=== PATIENT | female | born 1945 | race Caucasian/White ===

== ENCOUNTER 2018-06-15 18:45 | Inpatient (IN) | payer OTHER, SELFPAY ==
[2018-06-15] VITALS (12 sets, daily range): BP systolic 115–238; BP diastolic 35–101; PULSE 75–99; RESP 14–28; TEMP 37.2–37.3; O2SAT 82–100; BMI 47.4; BMI 45.1
--- NOTE | 2018-06-15 19:17 | EKG12_ITS ---
Test Reason : Blood Pressure : / mmHG Vent. Rate : 087 BPM Atrial Rate : 087 BPM P-R Int : 146 ms QRS Dur : 134 ms QT Int : 400 ms P-R-T Axes : 071 -79 044 degrees QTc Int : 481 ms Sinus rhythm with Premature atrial complexes Possible Left atrial enlargement Right bundle branch block Left anterior fascicular block Bifascicular block Abnormal ECG Confirmed by SWATI SMITH, SUSHANT ([id number]), market editor SANDRA BERG ([id number] on 06/17/2018 5:08:38 PM Referred By: Jalil Arredondo Confirmed By:SUSHNAT LONGORIA MD
--- NOTE | 2018-06-15 19:18 | CT_ITS ---
STUDY: CTA CHEST REASON FOR EXAM: Female, 73 years old. CHEST PAIN AND SOB SINCE Yesterday, pt IS POST-OP KNEE SURGERY ON 06-02-18,PT IV LEAKED SOME DURING INJECTION HX:DIABETES,HLD,HTN RADIATION DOSAGE (If Supplied By Facility): CTDIvol = ( 15.58 ) mGy, DLP = ( 703.05 ) mGycm TECHNIQUE: The examination was performed with the intravenous administration of 100ML ml of Isovue 370 contrast material. Post-processing of the angiographic images was performed, with multiplanar reformation and 3D reconstruction. Individualized dose optimization techniques were used for this CT. COMPARISON: None. FINDINGS: There are degenerative changes of the shoulders. There is no pneumothorax. Lower lobe atelectasis. Bilateral pleural effusions. There are calcifications of the coronary arteries. There is moderate cardiac enlargement. Valvular calcifications. Interlobular septal thickening. Normal mediastinum. Normal hilar regions. Normal pulmonary arteries. There is atherosclerotic calcification of the aortic arch with tortuosity and elongation of the aortic arch and descending thoracic aorta. There are multi-level degenerative changes of the thoracic spine. There is no demonstrated abnormality of the visualized upper abdomen. CT/CTA Chest W/WO Contrast IMPRESSION: There are bilateral pleural effusions, interlobular septal thickening, and cardiomegaly. This can suggest pulmonary edema. No demonstrated pulmonary embolism or arterial dissection. Electronically Signed: Ming Alexandra MD at 20:34 EST , Service support ,
[2018-06-15 19:26] LABS: Absolute Lymphocyte Count 1.66 X10^3/ul (0.83-4.51); Absolute Neutrophil Count 6.8 X10^3/uL (2.0-7.7); Basophil# 0.03 X10^3/uL; Basophil% 0.3 % (0-1); Eosinophil# 0.09 X10^3/uL; Hematocrit 30.2 % (37-47); Hemoglobin 9.4 g/dl (12.0-15.0); Lymphocyte # 1.66 X10^3/ul (4.0); Mean Corp Hgb Conc 31.1 g/gl (32-36); Mean Corpuscular Hgb 28.3 pg (27.0-32.0); Mean Platelet Vol. 9.1 fl (6.2-12.0); Monocyte# 0.62 X10^3/uL; Monocyte% 6.7 % (0-10); Neutrophil # 6.77 X10^3/uL (2.7-7.7); Neutrophil % 73.5 % (47-70); POSITIVE COUNT NO; POSITIVE DIFFERENTIAL NO; POSITIVE MORPHOLOGY NO; Platelet Count 455 K/mm3 (150-450); RBC Distribution Width CV 13.7 % (11.6-14.6); Red Blood Count 3.32 M/mm3 (4.2-5.4); White Blood Count 9.2 K/mm3 (4.4-11.0)
[2018-06-15 19:37] LABS: Anion Gap 8 (5-15); BUN 14 mg/dL (7-18); BUN/Creat Ratio 20.4 RATIO (10-20); Calcium,Total 8.7 mg/dL (8.5-10.1); Chloride 100 mmol/L (98-107); Creatinine, Serum 0.69 mg/dL (0.55-1.02); EST Glomerular Filtration Rate 89 mL/min (>60); Est Glom Filt Rate - Afr Amer 108 mL/min (>60); Estimated Creatinine Clearance 42.07 ml/min; Glucose 251 mg/dL (74-106); Potassium 3.9 mmol/L (3.5-5.1); Sodium Level 135 mmol/L (136-145)
[2018-06-15] MEDS: Ondansetron 4 MG/2 ML Vial IV (19:45)
[2018-06-15] MEDS: Morphine 4 MG/ML Syringe IV (19:45)
--- NOTE | 2018-06-15 20:33 | ED.RN ---
ASA 324 MG PO GIVEN BY EMS EN ROUTE TO [facility].
--- NOTE | 2018-06-15 21:12 | PCM.HP.STD ---
Problem List (1) Hypertensive emergency Status: Acute (2) Chest pain Status: Acute History of Present Illness Date of Admission: 06/15/18 Chief Complaint: CHEST PAIN The patient is a 73 year old F with a significant history of hypertension; diabetes mellitus; and a leaky valve who presented with chest pain that started the same day of her admission. Her chest pain is located at her left chest. Her chest pain is continuous with episodic increase in intensity. Her chest pain can go as high as 7 out of 10. The chest pain is described as a pressure and occasional sharpness. When she sits up her chest pain improves. She denies any aggravating factor to the chest pain. She denies any nausea. However she recounted one episode of vomiting. Also, she reports epigastric pain that has since disappeared. She was given 1 tablet of nitroglycerin by paramedics. She reported that the nitroglycerin did not help her. Also she was given 324 mg of aspirin by paramedics. Patient takes aspirin daily but on the morning of her admission she did not take her aspirin because of abdominal upset. She has aching pain in her upper back but she thinks that the pain is from lying in a recliner. She does not reports any radiating pain otherwise. Further, she also reports shortness of breath that started on the night before her admission. Her shortness of breath occurred at rest after waking up from sleep. She denies any strong family history of heart disease. She reports that her mother at age 84 had a CABG and repair of heart valve. She denies any tobacco or ethanol use. At emergency department her troponin was found in the indeterminate range and her blood pressure was elevated with a systolic between 190 to 210. She reported that on the day of admission her blood pressure at home was 163/88. Patient had a total left knee replacement on June 02, 2018. An ultrasound of her legs was done at emergency department but it was unremarkable for DVT. CTPA was done. The CTPA was unremarkable for PE but it showed bilateral pleural effusion. Past Medical History Medical History: Medical History (Last Updated 06/15/18 @ 22:25 by Jalil Arredondo MD) Diabetes E11.9 Hypertension I10 Allergies oxycodone Adverse Reaction (Verified 06/15/18 18:54) Nausea Home Medications: Ambulatory Orders Medication Instructions Recorded Aspirin 325 mg PO DAILY@0800 06/15/18 Glipizide 5 mg PO DAILY 06/15/18 Insulin Detemir [Levemir] 40 unit SQ QHS 06/15/18 Losartan Potassium 100 mg PO DAILY 06/15/18 Metoprolol(XL)Succ [Toprol Xl 50 mg PO DAILY 06/15/18 (Beta Iraj)] Surgical History: total knee arthroplasty - Bilateral; last one was done on left knee on June 02, 2018., - - Lower back surgery with disc fusion with plate and screw. Lives: Spouse/ Significant Other Smoking Status: Never smoker Alcohol: None - *Family History Paternal Family History: Family History (Last Updated 06/15/18 @ 22:28 by Jalil Arredondo MD) Sister Hypertension Father FH: CABG (coronary artery bypass surgery) Heart valve disease Review of Systems Constitutional: Denies: Chills, Fever, Weight Change HEENT: Denies: Head Aches, Sinus Congestion, Sinus Drainage Cardiovascular: Reports: Chest Pain. Denies: Palpitations Respiratory: Reports: Shortness of breath at rest. Denies: Cough, Sputum production Gastrointestinal: Reports: Abdominal Pain, Vomiting. Denies: Nausea Genitourinary: Denies: Dysuria Musculoskeletal: Reports: Back Pain. Denies: Joint Pain, Joint Tenderness Skin: Denies: Rash, Wounds Neurological: Denies: Numbness, Tingling, Focal weakness Psychiatric: Denies: Anxiety, Depression, Homicidal Ideations, Suicidal Ideations Hematologic/ Lymphatic: Denies: Easy Bruising, Easy Bleeding VTE Information - Inpt Only VTE Present on Admission: No VTE Mechan Device Prophylaxis: Knee High RAYMON Hose VTE Pharm Prophylaxis ordered?: Yes Patient Problems: Active and Suspected Problems (Last Updated 06/15/18 @ 22:25 by Jalil Arredondo MD) Hypertensive emergency (Acute) Chest pain (Acute) - Physical Exam General: Alert, Oriented x3, Cooperative HEENT: Atraumatic, PERRLA, EOMI, Normocephalic Neck: Supple, No JVD, Negative Carotid Bruits Lungs: Clear to auscultation, Normal air movement, - - Tender left chest Cardiovascular: Regular rate, No murmurs Abdomen: Bowel Sounds Present, Soft, Non Tender Extremities: No edema, Capillary Refill Less than 3 Seconds Skin: No rashes, No breakdown Musculoskeletal: No Tenderness to Palpation of Joints or Extremities Neurological: Neuro grossly intact Psych/Mental Status: Normal Affect, Appropriate Vital Signs Temp Pulse Resp BP Pulse Ox 99 F 79 16 175/80 H 97 06/15/18 18:50 06/15/18 21:00 06/15/18 21:00 06/15/18 21:00 06/15/18 21:00 Oxygen Flow Rate (L/min) 3 Oxygen Delivery Method Nasal Cannula Weight: 121.5 kg Body Mass Index (BMI) 47.4 Laboratory Tests Past 24 Hrs 06/15/18 06/15/18 19:00 19:00 WBC 9.2 RBC 3.32 L Hgb 9.4 L Hct 30.2 L MCV 91.0 MCH 28.3 MCHC 31.1 L RDW 13.7 RDW Differential 44.0 H Plt Count 455 H MPV 9.1 Immature Gran % (Auto) 0.500 Neut % (Auto) 73.5 H Lymph % (Auto) 18.0 L Thurston % (Auto) 6.7 Eos % (Auto) 1.0 Baso % (Auto) 0.3 Absolute Neuts (auto) 6.8 Absolute Lymphs (auto) 1.66 Total Counted Not Reportable Sodium 135 L Potassium 3.9 Chloride 100 Carbon Dioxide 27.0 Anion Gap 8 BUN 14 Creatinine 0.69 Estim Creat Clear Calc 42.07 Est GFR (MDRD) Af Amer 108 Est GFR (MDRD) Non-Af 89 BUN/Creatinine Ratio 20.4 H Glucose 251 H Calcium 8.7 Troponin I 0.067 H Assessment/Plan All Active Problems (Last Updated 06/15/18 @ 22:25 by Jalil Arredondo MD) Hypertensive emergency (Acute) Chest pain (Acute) The patient is a 73 year old F with a significant history of hypertension; diabetes mellitus; and a leaky valve who presented with chest pain and shortness of breath and found to have severely elevated blood pressure; radiographic evidence of bilateral pleural effusion; and troponin in the indeterminate range. Hypertensive emergency Her systolic blood pressure at emergency department was 190-210. Patient reports being compliant with her blood pressure medication and on the day of admission she took all her blood pressure medications. Because of chest pain; shortness of breath and bilateral effusion uniforming diagnosis is probably hypertensive emergency. Discussed with emergency department doctor to give patient labetalol 10 mg IV x1. Nitroglycerin paste placed on patient chest. Noted that her blood pressure had dropped to 115/101. We will trend her blood pressure and make further adjustment as necessary. We will continue patient on nitroglycerin paste. Her home losartan and metoprolol will be started in the AM. Labetalol as needed for systolic blood pressure more than 160 with intent to keep blood pressure below 140. Because of chest pain and intermediate troponin will consult cardiology. In the meantime we will do an echocardiogram to access her heart. Patient is not a candidate of a treadmill stress test because of a history of bilateral knee replacement Chest pain Admit to a monitored bed on PCU EKG independently reviewed confirms right bundle branch block. ASA 81 mg p.o. daily Nitroglycerin patch placed. Morphine as needed for pain We will check lipid panel. High intensity statin ordered Serial cardiac enzymes Stat EKG as needed for chest pain Cardiac consult. Bilateral pleural effusion Independent review of CT PA showed moderate-sized bilateral pleural effusion. If patient continues to have shortness of breath after blood pressure is well controlled consider Furosemide; or US for need of thoracentesis Echo ordered as above. Diabetes mellitus On admission her blood glucose was not within goal. Patient will be placed on n.p.o. until cardiology sees patient. Will cutdown her Lantus dose as patient will be n.p.o. Glipizide continued. We will add correction scale insulin. DVT prophylaxis Heparin subcutaneous ordered. She was on home RAYMON hose for DVT prophylaxis after knee surgery; continued.. Code Visit OBS E&M: 77225 Initial observation care L3
--- NOTE | 2018-06-15 21:22 | ED.VISSUMM ---
- ER Visit Summary Date of Service: 06/15/18 Chief Complaint: Chest pain History of Present Illness: The patient is a 73 F presenting with chest pain, shortness of breath. She states this started yesterday and worsened today around 1 PM. Pain has been intermittent. She states it is worsened with laying flat and with taking deep inspirations. She had her right knee replaced on June [address] Mccartney. She had an ultrasound of her right lower extremity on which was negative for DVT. She complains of vomiting x1 earlier today. She has had no fever. Her knee has been healing well. Denies other complaints. Physical Examination: Vitals are stable. Patient is afebrile. Alert no acute distress. HEENT exam is unremarkable. Neck is supple. Lungs are clear and equal bilaterally. Heart is regular rate and rhythm. Abdomen is soft nontender nondistended. Extremities are unremarkable. Right knee incision clean dry and intact. No pain with range of motion. Normal distal pulse. Skin is warm and dry. No focal neurologic deficit. Remainder of exam is unremarkable. Emergency Department Course and Treatment: Patient was given aspirin, morphine, Zofran. EKG shows sinus rhythm rate of 87 with right bundle branch block. CBC normal except for hemoglobin 9.4, platelet 455. Chemistries normal except glucose 251. Troponin indeterminate at 0.067. Due to concern for PE with recent surgery CTA chest was obtained and shows there are bilateral pleural effusions, interlobular septal thickening, and cardiomegaly. This can suggest pulmonary edema. No demonstrated pulmonary embolism or arterial dissection. On reevaluation, she is chest pain-free. Discussed with the hospitalist for admission. Disposition: Admission Impression: Chest pain, pulmonary edema This note was generated with Flipboard dictation software. It may contain incorrect words, spelling, and punctuation that were not noted in review of the chart prior to signing ED Disposition - Plan for ED Patient: Chief Complaint: Chest Pain Referrals: Maxi Coats MD [Primary Care Provider] -
[2018-06-15] MEDS: Nitroglycerin Oint 1 INCH PACKET TRANSDERM. (22:06)
--- NOTE | 2018-06-15 22:51 | EKG12_ITS ---
Test Reason : CP REPEAT Blood Pressure : / mmHG Vent. Rate : 075 BPM Atrial Rate : 075 BPM P-R Int : 150 ms QRS Dur : 136 ms QT Int : 432 ms P-R-T Axes : -09 138 013 degrees QTc Int : 482 ms Normal sinus rhythm Right bundle branch block Left posterior fascicular block Bifascicular block Abnormal ECG No previous ECGs available Confirmed by SWATI SMITH, SUSHANT ([id number]), commercial production editor SANDRA BERG ([id number]) on 06/17/2018 5:38:58 PM Referred By: Jalil Arredondo Confirmed By:SUSHANT LONGORIA MD
[2018-06-15 23:16] LABS: Bedside Glucose 217 mg/dL (70-110)
[2018-06-15] MEDS: Insulin Lispro 100 UNIT/ML INSULN.PEN SQ (23:21)
[2018-06-15] MEDS: Atorvastatin Calcium 80 MG Tablet PO (23:23)
[2018-06-16] VITALS (25 sets, daily range): BP systolic 130–179; BP diastolic 38–72; PULSE 69–81; RESP 16–25; TEMP 36.8–37.2; O2SAT 95–100
[2018-06-16] MEDS: Morphine 2 MG/ML Syringe IV (02:15)
[2018-06-16] MEDS: 0.9% NaCl Peripheral Flush Adult/Peds IV ×3 (02:19→12:13)
[2018-06-16 02:27] LABS: International Normalized Ratio 1.1; Prothrombin Time (Protime)PT. 13.9 SECONDS (11.7-14.9)
[2018-06-16 02:36] LABS: Anion Gap 8 (5-15); BUN 13 mg/dL (7-18); BUN/Creat Ratio 17.8 RATIO (10-20); Calcium,Total 8.5 mg/dL (8.5-10.1); Chloride 101 mmol/L (98-107); Cholesterol 141 mg/dL (200); Creatinine, Serum 0.73 mg/dL (0.55-1.02); EST Glomerular Filtration Rate 83 mL/min (>60); Est Glom Filt Rate - Afr Amer 101 mL/min (>60); Estimated Creatinine Clearance 42.07 ml/min; Glucose 193 mg/dL (74-106); High Density Lipoprotein 42 mg/dL; Potassium 3.9 mmol/L (3.5-5.1); Sodium Level 137 mmol/L (136-145); Triglycerides 74 mg/dL; Very Low Density Lipoprotein 15 mg/dL (5-40)
[2018-06-16] MEDS: Insulin Lispro 100 UNIT/ML INSULN.PEN SQ ×2 (06:10→16:46)
[2018-06-16] MEDS: Nitroglycerin Oint 1 INCH PACKET TRANSDERM. (06:11)
[2018-06-16 06:26] LABS: Bedside Glucose 190 mg/dL (70-110)
--- NOTE | 2018-06-16 08:41 | PCM.PN.HOSP ---
Patient Problems: Active and Suspected Problems (Last Updated 06/15/18 @ 22:25 by Jalil Arredondo MD) Hypertensive emergency (Acute) Chest pain (Acute) Subjective: Patient shortness of breath is better. She has been feeling short of breath on mild exertion even walking within the home for last 2-3 weeks which got exacerbated in the last 2-3 days, along with retrosternal chest pressure bilateral pleural effusion with indeterminant range troponin. Patient is not sure about which a leaky valve but denies history of congestive heart failure. Patient has been compliant with medications. Vitals/I&O's: Vital Signs Temp Pulse Resp BP Pulse Ox 98.4 F 75 16 130/44 H 99 06/16/18 05:55 06/16/18 07:30 06/16/18 05:55 06/16/18 06:11 06/16/18 05:55 Oxygen Flow Rate (L/min) 2 Oxygen Delivery Method Nasal Cannula Weight: 254 lb 13.67 oz Body Mass Index (BMI) 45.1 Intake and Output for Last 24 Hours 06/14/18 06/15/18 06/16/18 23:59 23:59 23:59 Intake Total 240 / 240 60 / 60 Output Total 550 / 550 Balance 240 / 240 -490 / -490 General: Alert, Oriented x3, Cooperative HEENT: Atraumatic, PERRLA, EOMI, Normocephalic Neck: Supple, No JVD, Negative Carotid Bruits Lungs: Diminished - Air entry diminished in posterior half of both lungs., Rales, Short of Breath Cardiovascular: Regular rate, Regular Rhythm, Normal S1, Normal S2, Murmur - Systolic murmur present over left lower sternal border Abdomen: Bowel Sounds Present, Soft, Non Tender, Non-Distended Extremities: No edema, Capillary Refill Less than 3 Seconds Skin: No rashes, No breakdown Musculoskeletal: No Tenderness to Palpation of Joints or Extremities, Arthritic Changes, - - Bilateral TKR. Most recent right TKR about 2 weeks ago Lymphatic: No Cervical, Supraclavicular, or Inguinal Adenopathy Neurological: Cranial nerves II-XII grossly intact, Deep Tendon Reflexes 2+/4 and Symmetrical, Neuro grossly intact Psych/Mental Status: Normal Affect, Appropriate Laboratory Results 06/15/18 19:00: WBC 9.2, RBC 3.32 L, Hgb 9.4 L, Hct 30.2 L, MCV 91.0, MCH 28.3, MCHC 31.1 L, RDW 13.7, RDW Differential 44.0 H, Plt Count 455 H, MPV 9.1, Immature Gran % (Auto) 0.500, Neut % (Auto) 73.5 H, Lymph % (Auto) 18.0 L, Tama % (Auto) 6.7, Eos % (Auto) 1.0, Baso % (Auto) 0.3, Absolute Neuts (auto) 6.8, Absolute Lymphs (auto) 1.66, Total Counted Not Reportable 06/15/18 19:00: Sodium 135 L, Potassium 3.9, Chloride 100, Carbon Dioxide 27.0, Anion Gap 8, BUN 14, Creatinine 0.69, Estim Creat Clear Calc 42.07, Est GFR (MDRD) Af Amer 108, Est GFR (MDRD) Non-Af 89, BUN/Creatinine Ratio 20.4 H, Glucose 251 H, Calcium 8.7, Troponin I 0.067 H 06/15/18 23:00: Troponin I 0.083 H 06/15/18 23:10: POC Glucose 217 H 06/16/18 02:10: Sodium 137, Potassium 3.9, Chloride 101, Carbon Dioxide 28.0, Anion Gap 8, BUN 13, Creatinine 0.73, Estim Creat Clear Calc 42.07, Est GFR (MDRD) Af Amer 101, Est GFR (MDRD) Non-Af 83, BUN/Creatinine Ratio 17.8, Glucose 193 H, Calcium 8.5, Triglycerides 74, Cholesterol 141, LDL Cholesterol 84, VLDL Cholesterol 15, HDL Cholesterol 42 06/16/18 02:10: PT 13.9, INR 1.1 06/16/18 02:10: Troponin I 0.077 H 06/16/18 06:09: POC Glucose 190 H Current Medications Acetaminophen (Tylenol) 650 mg PO Q6H PRN PRN PRN Reason: Mild Pain (1-3)/Temp > 100.7 F Aspirin (Ecotrin) 81 mg PO DAILY@0800 [facility] Atorvastatin Calcium (Lipitor) 80 mg PO QHS [facility] Last Admin: 06/15/18 23:23 Dose: 80 mg Dextrose (D50w Syringe) 0 gm IV X1 PRN; Protocol PRN Reason: Hypoglycemia Glipizide (Glucotrol) 5 mg PO DAILYCM [facility] Glucagon () 1 mg IM .X1 PRN PRN Reason: Hypoglycemia Insulin Glargine (Lantus (Bkc)) 25 units SC QHS [facility] Last Admin: 06/15/18 23:22 Dose: 25 units Insulin Human Lispro (Humalog Kwikpen (Bk)) 0 unit SQ Q6 [facility]; Protocol Last Admin: 06/16/18 06:10 Dose: 2 units Labetalol HCl (Trandate) 10 mg IV Q4H PRN PRN PRN Reason: SBP > 160 Losartan Potassium (Cozaar) 100 mg PO DAILY [facility] Magnesium Hydroxide (Milk Of Magnesia) 30 ml PO DAILY PRN PRN Reason: Constipation Metoprolol Succinate (Toprol Xl (Beta Iraj)) 50 mg PO DAILY [facility] Morphine Sulfate () 1 - 2 mg IV Q4H PRN PRN PRN Reason: MOD-SEVERE PAIN (4-1010) Last Admin: 06/16/18 02:15 Dose: 2 mg Nitroglycerin (Nitrobid) 1 inch TRANSDERM. Q6 [facility] Last Admin: 06/16/18 06:11 Dose: 1 inch Nutritional Formula (Lactose Free) (Glucerna Shake) 120 ml PO 4X/DAY [facility] Ondansetron HCl (Zofran) 4 mg IV Q8H PRN PRN PRN Reason: NAUSEA Sodium Chloride () 5 - 15 ml IV UD PRN PRN Reason: SALINE FLUSH Last Admin: 06/16/18 06:15 Dose: 10 ml Zolpidem Tartrate (Ambien (Generic)) 5 mg PO QHS PRN PRN PRN Reason: INSOMNIA Medical Necessity - Tobacco Use Smoking Status: Never smoker Assessment/Plan All Active Problems (Last Updated 06/15/18 @ 22:25 by Jalil Arredondo MD) Hypertensive emergency (Acute) Chest pain (Acute) The patient is a 73 year old F with a significant history of hypertension; diabetes mellitus; and a leaky valve who presented with progressive worsening of shortness of breath for 2-3 weeks got the worst last 2-3 hours along with chest pain and found to have severely elevated blood pressure; radiographic evidence of bilateral pleural effusion; and troponin in the indeterminate range, consistent with hypertensive emergency and was admitted in the ICU. 1 hypertensive emergency: Systolic blood pressure was 190-210 in the ED currently blood pressure systolic is in the 150s. Heart rate 70-80/min. Blood pressure dropped to 150s/101 on 1 dose of labetalol 10 mg IV given in ED currently on oral medications losartan, Nitropaste and labetalol 10 mg IV as needed. EKG shows normal sinus rhythm with right bundle branch block, left posterior fascicular block at 75 bpm. No previous EKG in our system to compare with. [facility] has been consulted. 2D echo is ordered. Further plan after seen by guide excursion and echo report 2. Bilateral pleural effusion most probably secondary to CHF/hypertensive emergency: CT angiogram in the ER shows bilateral pleural effusions with interlobular septal thickening suggesting pulmonary edema. No PE/arterial dissection found. On Lasix as needed if the patient gets very short of breath but currently shortness of breath is better. 3. Atypical chest pain with intermittent troponin probably from hypertensive emergency and heart failure: [facility] evaluation. 4. Diabetes mellitus type 2: On Lantus and sliding scale Humalog insulin 5. DVT prophylaxis on heparin 500o subcutaneous twice daily Active Medications Acetaminophen (Tylenol) 650 mg PO Q6H PRN PRN PRN Reason: Mild Pain (1-3)/Temp > 100.7 F Aspirin (Ecotrin) 81 mg PO DAILY@0800 [facility] Atorvastatin Calcium (Lipitor) 80 mg PO QHS [facility] Last Admin: 06/15/18 23:23 Dose: 80 mg Dextrose (D50w Syringe) 0 gm IV X1 PRN; Protocol PRN Reason: Hypoglycemia [facility] Glucagon () 1 mg IM .X1 PRN PRN Reason: Hypoglycemia Insulin Glargine (Lantus (Bkc)) 25 units SC QHS [facility] Last Admin: 06/15/18 23:22 Dose: 25 units Insulin Human Lispro (Humalog Kwikpen (Bkc)) 0 unit SQ Q6 [facility]; Protocol Last Admin: 06/16/18 06:10 Dose: 2 units Labetalol HCl (Trandate) 10 mg IV Q4H PRN PRN PRN Reason: SBP > 160 Losartan Potassium (Cozaar) 100 mg PO DAILY [facility] Magnesium Hydroxide (Milk Of Magnesia) 30 ml PO DAILY PRN PRN Reason: Constipation Metoprolol Succinate (Toprol Xl (Beta Iraj)) 50 mg PO DAILY [facility] Morphine Sulfate () 1 - 2 mg IV Q4H PRN PRN PRN Reason: MOD-SEVERE PAIN (4-03/12) Last Admin: 06/16/18 02:15 Dose: 2 mg Nitroglycerin (Nitrobid) 1 inch TRANSDERM. Q6 [facility] Last Admin: 06/16/18 06:11 Dose: 1 inch Nutritional Formula (Lactose Free) (Glucerna Shake) 120 ml PO 4X/DAY [facility] Ondansetron HCl (Zofran) 4 mg IV Q8H PRN PRN PRN Reason: NAUSEA Sodium Chloride () 5 - 15 ml IV UD PRN PRN Reason: SALINE FLUSH Last Admin: 06/16/18 06:15 Dose: 10 ml Zolpidem Tartrate (Ambien (Generic)) 5 mg PO QHS PRN PRN PRN Reason: INSOMNIA Laboratory Results 06/15/18 19:00: WBC 9.2, RBC 3.32 L, Hgb 9.4 L, Hct 30.2 L, MCV 91.0, MCH 28.3, MCHC 31.1 L, RDW 13.7, RDW Differential 44.0 H, Plt Count 455 H, MPV 9.1, Immature Gran % (Auto) 0.500, Neut % (Auto) 73.5 H, Lymph % (Auto) 18.0 L, Tama % (Auto) 6.7, Eos % (Auto) 1.0, Baso % (Auto) 0.3, Absolute Neuts (auto) 6.8, Absolute Lymphs (auto) 1.66, Total Counted Not Reportable 06/15/18 19:00: Sodium 135 L, Potassium 3.9, Chloride 100, Carbon Dioxide 27.0, Anion Gap 8, BUN 14, Creatinine 0.69, Estim Creat Clear Calc 42.07, Est GFR (MDRD) Af Amer 108, Est GFR (MDRD) Non-Af 89, BUN/Creatinine Ratio 20.4 H, Glucose 251 H, Calcium 8.7, Troponin I 0.067 H 06/15/18 23:00: Troponin I 0.083 H 06/15/18 23:10: POC Glucose 217 H 06/16/18 02:10: Sodium 137, Potassium 3.9, Chloride 101, Carbon Dioxide 28.0, Anion Gap 8, BUN 13, Creatinine 0.73, Estim Creat Clear Calc 42.07, Est GFR (MDRD) Af Amer 101, Est GFR (MDRD) Non-Af 83, BUN/Creatinine Ratio 17.8, Glucose 193 H, Calcium 8.5, Triglycerides 74, Cholesterol 141, LDL Cholesterol 84, VLDL Cholesterol 15, HDL Cholesterol 42 06/16/18 02:10: PT 13.9, INR 1.1 06/16/18 02:10: Troponin I 0.077 H 06/16/18 06:09: POC Glucose 190 H Code Visit Inpatient E&M: 41564 Subs Hosp L3
--- NOTE | 2018-06-16 08:46 | PN_ITS ---
Patient Problems: Active and Suspected Problems (Last Updated 06/15/18 @ 22:25 by Jalil Arredondo MD) Hypertensive emergency (Acute) Chest pain (Acute) Subjective: Patient shortness of breath is better. She has been feeling short of breath on mild exertion even walking within the home for last 2-3 weeks which got exacerbated in the last 2-3 days, along with retrosternal chest pressure bilateral pleural effusion with indeterminant range troponin. Patient is not sure about which a leaky valve but denies history of congestive heart failure. Patient has been compliant with medications. Vitals/I&O's: Vital Signs Temp Pulse Resp BP Pulse Ox 98.4 F 75 16 130/44 H 99 06/16/18 05:55 06/16/18 07:30 06/16/18 05:55 06/16/18 06:11 06/16/18 05:55 Oxygen Flow Rate (L/min) 2 Oxygen Delivery Method Nasal Cannula Weight: 254 lb 13.67 oz Body Mass Index (BMI) 45.1 Intake and Output for Last 24 Hours 06/14/18 06/15/18 06/16/18 23:59 23:59 23:59 Intake Total 240 / 240 60 / 60 Output Total 550 / 550 Balance 240 / 240 -490 / -490 General: Alert, Oriented x3, Cooperative HEENT: Atraumatic, PERRLA, EOMI, Normocephalic Neck: Supple, No JVD, Negative Carotid Bruits Lungs: Diminished - Air entry diminished in posterior half of both lungs., Rales, Short of Breath Cardiovascular: Regular rate, Regular Rhythm, Normal S1, Normal S2, Murmur - Systolic murmur present over left lower sternal border Abdomen: Bowel Sounds Present, Soft, Non Tender, Non-Distended Extremities: No edema, Capillary Refill Less than 3 Seconds Skin: No rashes, No breakdown Musculoskeletal: No Tenderness to Palpation of Joints or Extremities, Arthritic Changes, - - Bilateral TKR. Most recent right TKR about 2 weeks ago Lymphatic: No Cervical, Supraclavicular, or Inguinal Adenopathy Neurological: Cranial nerves II-XII grossly intact, Deep Tendon Reflexes 2+/4 and Symmetrical, Neuro grossly intact Psych/Mental Status: Normal Affect, Appropriate Laboratory Results 06/15/18 19:00: WBC 9.2, RBC 3.32 L, Hgb 9.4 L, Hct 30.2 L, MCV 91.0, MCH 28.3, MCHC 31.1 L, RDW 13.7, RDW Differential 44.0 H, Plt Count 455 H, MPV 9.1, Immature Gran % (Auto) 0.500, Neut % (Auto) 73.5 H, Lymph % (Auto) 18.0 L, [place] % (Auto) 6.7, Eos % (Auto) 1.0, Baso % (Auto) 0.3, Absolute Neuts (auto) 6.8, Absolute Lymphs (auto) 1.66, Total Counted Not Reportable 06/15/18 19:00: Sodium 135 L, Potassium 3.9, Chloride 100, Carbon Dioxide 27.0, Anion Gap 8, BUN 14, Creatinine 0.69, Estim Creat Clear Calc 42.07, Est GFR (MDRD) Af Amer 108, Est GFR (MDRD) Non-Af 89, BUN/Creatinine Ratio 20.4 H, Glucose 251 H, Calcium 8.7, Troponin I 0.067 H 06/15/18 23:00: Troponin I 0.083 H 06/15/18 23:10: POC Glucose 217 H 06/16/18 02:10: Sodium 137, Potassium 3.9, Chloride 101, Carbon Dioxide 28.0, Anion Gap 8, BUN 13, Creatinine 0.73, Estim Creat Clear Calc 42.07, Est GFR (MDRD) Af Amer 101, Est GFR (MDRD) Non-Af 83, BUN/Creatinine Ratio 17.8, Glucose 193 H, Calcium 8.5, Triglycerides 74, Cholesterol 141, LDL Cholesterol 84, VLDL Cholesterol 15, HDL Cholesterol 42 06/16/18 02:10: PT 13.9, INR 1.1 06/16/18 02:10: Troponin I 0.077 H 06/16/18 06:09: POC Glucose 190 H Current Medications Acetaminophen (Tylenol) 650 mg PO Q6H PRN PRN PRN Reason: Mild Pain (1-3)/Temp > 100.7 F Aspirin (Ecotrin) 81 mg PO DAILY@0800 [facility] Atorvastatin Calcium (Lipitor) 80 mg PO QHS [facility] Last Admin: 06/15/18 23:23 Dose: 80 mg Dextrose (D50w Syringe) 0 gm IV X1 PRN; Protocol PRN Reason: Hypoglycemia Glipizide (Glucotrol) 5 mg PO DAILYCM [facility] Glucagon () 1 mg IM .X1 PRN PRN Reason: Hypoglycemia Insulin Glargine (Lantus (Bkc)) 25 units SC QHS [facility] Last Admin: 06/15/18 23:22 Dose: 25 units Insulin Human Lispro (Humalog Kwikpen (Bk)) 0 unit SQ Q6 [facility]; Protocol Last Admin: 06/16/18 06:10 Dose: 2 units Labetalol HCl (Trandate) 10 mg IV Q4H PRN PRN PRN Reason: SBP > 160 Losartan Potassium (Cozaar) 100 mg PO DAILY [facility] Magnesium Hydroxide (Milk Of Magnesia) 30 ml PO DAILY PRN PRN Reason: Constipation Metoprolol Succinate (Toprol Xl (Beta Iraj)) 50 mg PO DAILY [facility] Morphine Sulfate () 1 - 2 mg IV Q4H PRN PRN PRN Reason: MOD-SEVERE PAIN (4-1010) Last Admin: 06/16/18 02:15 Dose: 2 mg Nitroglycerin (Nitrobid) 1 inch TRANSDERM. Q6 [facility] Last Admin: 06/16/18 06:11 Dose: 1 inch Nutritional Formula (Lactose Free) (Glucerna Shake) 120 ml PO 4X/DAY [facility] Ondansetron HCl (Zofran) 4 mg IV Q8H PRN PRN PRN Reason: NAUSEA Sodium Chloride () 5 - 15 ml IV UD PRN PRN Reason: SALINE FLUSH Last Admin: 06/16/18 06:15 Dose: 10 ml Zolpidem Tartrate (Ambien (Generic)) 5 mg PO QHS PRN PRN PRN Reason: INSOMNIA Medical Necessity - Tobacco Use Smoking Status: Never smoker Assessment/Plan All Active Problems (Last Updated 06/15/18 @ 22:25 by Jalil Arredondo MD) Hypertensive emergency (Acute) Chest pain (Acute) The patient is a 73 year old F with a significant history of hypertension; diabetes mellitus; and a leaky valve who presented with progressive worsening of shortness of breath for 2-3 weeks got the worst last 2-3 hours along with chest pain and found to have severely elevated blood pressure; radiographic evidence of bilateral pleural effusion; and troponin in the indeterminate range, consistent with hypertensive emergency and was admitted in the ICU. 1 hypertensive emergency: Systolic blood pressure was 190-210 in the ED currently blood pressure systolic is in the 150s. Heart rate 70-80/min. Blood pressure dropped to 150s/101 on 1 dose of labetalol 10 mg IV given in ED currently on oral medications losartan, Nitropaste and labetalol 10 mg IV as needed. EKG shows normal sinus rhythm with right bundle branch block, left posterior fascicular block at 75 bpm. No previous EKG in our system to compare with. Gym Attendant has been consulted. 2D echo is ordered. Further plan after seen by research dietitian and echo report 2. Bilateral pleural effusion most probably secondary to CHF/hypertensive emergency: CT angiogram in the ER shows bilateral pleural effusions with interlobular septal thickening suggesting pulmonary edema. No PE/arterial dissection found. On Lasix as needed if the patient gets very short of breath but currently shortness of breath is better. 3. Atypical chest pain with intermittent troponin probably from hypertensive emergency and heart failure: Gym Attendant evaluation. 4. Diabetes mellitus type 2: On Lantus and sliding scale Humalog insulin 5. DVT prophylaxis on heparin 500o subcutaneous twice daily Active Medications Acetaminophen (Tylenol) 650 mg PO Q6H PRN PRN PRN Reason: Mild Pain (1-3)/Temp > 100.7 F Aspirin (Ecotrin) 81 mg PO DAILY@0800 [facility] Atorvastatin Calcium (Lipitor) 80 mg PO QHS [facility] Last Admin: 06/15/18 23:23 Dose: 80 mg Dextrose (D50w Syringe) 0 gm IV X1 PRN; Protocol PRN Reason: Hypoglycemia [facility] () 1 mg IM .X1 PRN PRN Reason: Hypoglycemia Insulin Glargine (Lantus (Bkc)) 25 units SC QHS [facility] Last Admin: 06/15/18 23:22 Dose: 25 units Insulin Human Lispro (Humalog Kwikpen (Bkc)) 0 unit SQ Q6 [facility]; Protocol Last Admin: 06/16/18 06:10 Dose: 2 units Labetalol HCl (Trandate) 10 mg IV Q4H PRN PRN PRN Reason: SBP > 160 Losartan Potassium (Cozaar) 100 mg PO DAILY [facility] Magnesium Hydroxide (Milk Of Magnesia) 30 ml PO DAILY PRN PRN Reason: Constipation Metoprolol Succinate (Toprol Xl (Beta Iraj)) 50 mg PO DAILY [facility] Morphine Sulfate () 1 - 2 mg IV Q4H PRN PRN PRN Reason: MOD-SEVERE PAIN (4-03/12) Last Admin: 06/16/18 02:15 Dose: 2 mg Nitroglycerin (Nitrobid) 1 inch TRANSDERM. Q6 [facility] Last Admin: 06/16/18 06:11 Dose: 1 inch Nutritional Formula (Lactose Free) (Glucerna Shake) 120 ml PO 4X/DAY [facility] Ondansetron HCl (Zofran) 4 mg IV Q8H PRN PRN PRN Reason: NAUSEA Sodium Chloride () 5 - 15 ml IV UD PRN PRN Reason: SALINE FLUSH Last Admin: 06/16/18 06:15 Dose: 10 ml Zolpidem Tartrate (Ambien (Generic)) 5 mg PO QHS PRN PRN PRN Reason: INSOMNIA Laboratory Results 06/15/18 19:00: WBC 9.2, RBC 3.32 L, Hgb 9.4 L, Hct 30.2 L, MCV 91.0, MCH 28.3, MCHC 31.1 L, RDW 13.7, RDW Differential 44.0 H, Plt Count 455 H, MPV 9.1, Immature Gran % (Auto) 0.500, Neut % (Auto) 73.5 H, Lymph % (Auto) 18.0 L, [place] % (Auto) 6.7, Eos % (Auto) 1.0, Baso % (Auto) 0.3, Absolute Neuts (auto) 6.8, Absolute Lymphs (auto) 1.66, Total Counted Not Reportable 06/15/18 19:00: Sodium 135 L, Potassium 3.9, Chloride 100, Carbon Dioxide 27.0, Anion Gap 8, BUN 14, Creatinine 0.69, Estim Creat Clear Calc 42.07, Est GFR (MDRD) Af Amer 108, Est GFR (MDRD) Non-Af 89, BUN/Creatinine Ratio 20.4 H, Glucose 251 H, Calcium 8.7, Troponin I 0.067 H 06/15/18 23:00: Troponin I 0.083 H 06/15/18 23:10: POC Glucose 217 H 06/16/18 02:10: Sodium 137, Potassium 3.9, Chloride 101, Carbon Dioxide 28.0, Anion Gap 8, BUN 13, Creatinine 0.73, Estim Creat Clear Calc 42.07, Est GFR (MDRD) Af Amer 101, Est GFR (MDRD) Non-Af 83, BUN/Creatinine Ratio 17.8, Glucose 193 H, Calcium 8.5, Triglycerides 74, Cholesterol 141, LDL Cholesterol 84, VLDL Cholesterol 15, HDL Cholesterol 42 06/16/18 02:10: PT 13.9, INR 1.1 06/16/18 02:10: Troponin I 0.077 H 06/16/18 06:09: POC Glucose 190 H Code Visit Inpatient E&M: 76723 Subs Hosp L3
[2018-06-16 11:50] LABS: Bedside Glucose 146 mg/dL (70-110)
[2018-06-16] MEDS: 0.9% Normal Saline 1,000 ML 15 ML IV (12:12)
[2018-06-16] MEDS: Clopidogrel Bisulfate 300 MG Tablet PO (12:12)
[2018-06-16] MEDS: Losartan Potassium 100 MG Tablet PO (12:13)
[2018-06-16] MEDS: Aspirin E.C. 81 MG Tablet PO (12:13)
[2018-06-16] MEDS: Metoprolol(XL)Succ 50 MG Tablet PO ×2 (12:13→18:36)
--- NOTE | 2018-06-16 13:16 | CASEMGMT ---
RN CM Assessment Presentation: Pt presented to ER with chest pain, hypertension PCP: Dr. Coats Preferred Pharmacy: [facility] Insurance: [employer] Prescription Benefit: no LNOK: , Annalee Godfrey Living Arrangements: moderately independent @ home. Assistance with bathing. , family assist. Has first floor set up. DME/HHC: wheeled walker, raised toilet seat, toilet side rails, shower chair. Pt is on oxygen @ [facility], may need oxygen testing prior to dc. PT/OT: decreased activity tolerance and decreased functional mobility. DC PLAN: undetermined.
--- NOTE | 2018-06-16 13:37 | PCM.CONS.C ---
Reason for Consult Date of Consultation: 06/16/18 Reason for Consultation: Shortness of breath History of Present Illness: The patient is a 73 year old F with no significant past medical history who was presented to the emergency room yesterday on account of shortness of breath which appeared to be worse over the last 2-3 days. She says that over the last couple of weeks she has experienced some shortness of breath with no dizziness or diaphoresis near syncope or syncope. She has not had any pedal edema she did have mild chest heaviness. She denies any palpitations. She says she may have been told in the past that she had a leaky valve. In the emergency room she was noted to be markedly hypertensive with nonspecific EKG changes. A CT scan of her chest also demonstrated bilateral pleural effusions. Her natruretic peptide was elevated as well as her troponins which were mildly elevated. Cardiology was called to evaluate her today. Currently she is free of any chest pain. [] Past Medical History Allergies/Adverse Reactions: Allergies oxycodone Adverse Reaction (Verified 06/15/18 18:54) Nausea Home Medications: Ambulatory Orders Medication Instructions Recorded Aspirin 325 mg PO DAILY@0800 06/15/18 Glipizide 5 mg PO DAILY 06/15/18 Insulin Detemir [Levemir] 40 unit SQ QHS 06/15/18 Losartan Potassium 100 mg PO DAILY 06/15/18 Metoprolol(XL)Succ [Toprol Xl 50 mg PO DAILY 06/15/18 (Beta Iraj)] Surgical History: total knee arthroplasty - Bilateral; last one was done on left knee on June 02, 2018., - - Lower back surgery with disc fusion with plate and screw. - *Family History Paternal Family History: Family History (Last Updated 06/15/18 @ 22:28 by Jalil Arredondo MD) Sister Hypertension Father FH: CABG (coronary artery bypass surgery) Heart valve disease Lives: Spouse/ Significant Other Smoking Status: Never smoker Alcohol: None Drugs: None Review of Systems - Review of Systems General: Denies: Fever, Night Sweats, Fatigue HEENT: Denies: Vision Change Cardiovascular: Reports: Chest Discomfort, Chest Pressure, Shortness of Breath. Denies: Orthopnea, PND, Peripheral Edema, Palpitations, Lightheadedness, Dizziness, Near Syncope, Syncope Respiratory: Denies: Cough, Sputum Production, Hemoptysis Gastrointestinal: Denies: Hematemesis, Hematochezia, Melena Genitourinary: Denies: Dysuria, Hematuria Muscoloskeletal: Denies: Myalgias Skin: Denies: Rash Neurological: Denies: Dizziness Psychiatric: Denies: Anxiety Endocrine: Denies: Unexplained Weight Loss Hematologic/ Lymphatic: Denies: Anemia Subjectve: Pleasant lady in no apparent distress Objective: Vital Signs Temp Pulse Resp BP Pulse Ox 98.8 F 75 20 H 136/43 H 99 06/16/18 11:39 06/16/18 12:13 06/16/18 11:39 06/16/18 11:39 06/16/18 11:39 Oxygen Flow Rate (L/min) 2 Oxygen Delivery Method Nasal Cannula Weight: 254 lb 13.67 oz Body Mass Index (BMI) 45.1 Intake and Output for Last 24 Hours 06/14/18 06/15/18 06/16/18 23:59 23:59 23:59 Intake Total 240 / 240 60 / 60 Output Total 550 / 550 Balance 240 / 240 -490 / -490 General: Awake, Alert, Oriented x 3 HEENT: PERRL, EOMI, Sclera Non Icteric Neck: Supple, Good ROM, No Lymph Node Enlargement Lungs: Clear to auscultation Cardiovascular: Regular Rhythm, Normal S1, Normal S2, No Murmurs, No Rubs, No Gallops Murmur Murmur: Grade 2/6, Early Systolic, LLSB Vascular: No Carotid Bruits, Normal Femoral Pulses, Normal Radial Pulses, Normal Dorsalis Pedal Pulse, Normal Posterior Tibial Pulses Abdomen: Bowel Sounds Present, Soft, Non Tender, No HSM, No Organomegaly Extremities: No Cyanosis, No Clubbing, No edema Skin: No Rashes Lymphatic: No Lymph Node Enlargement Neurological: No Focal Motor or Sensory Deficit Psych/Mental Status: Appropriate 06/15/18 19:00: WBC 9.2, RBC 3.32 L, Hgb 9.4 L, Hct 30.2 L, MCV 91.0, MCH 28.3, MCHC 31.1 L, RDW 13.7, RDW Differential 44.0 H, Plt Count 455 H, MPV 9.1, Immature Gran % (Auto) 0.500, Neut % (Auto) 73.5 H, Lymph % (Auto) 18.0 L, [place] % (Auto) 6.7, Eos % (Auto) 1.0, Baso % (Auto) 0.3, Absolute Neuts (auto) 6.8, Total Counted Not Reportable 06/15/18 19:00: Sodium 135 L, Potassium 3.9, Chloride 100, Carbon Dioxide 27.0, Anion Gap 8, BUN 14, Creatinine 0.69, Est GFR (MDRD) Af Amer 108, Est GFR (MDRD) Non-Af 89, BUN/Creatinine Ratio 20.4 H, Glucose 251 H, Calcium 8.7, Troponin I 0.067 H 06/15/18 23:00: Troponin I 0.083 H 06/16/18 02:10: Sodium 137, Potassium 3.9, Chloride 101, Carbon Dioxide 28.0, Anion Gap 8, BUN 13, Creatinine 0.73, Est GFR (MDRD) Af Amer 101, Est GFR (MDRD) Non-Af 83, BUN/Creatinine Ratio 17.8, Glucose 193 H, Calcium 8.5, Triglycerides 74, Cholesterol 141, LDL Cholesterol 84, VLDL Cholesterol 15, HDL Cholesterol 42 06/16/18 02:10: PT 13.9, INR 1.1 06/16/18 02:10: Troponin I 0.077 H Rhythm: EKG: Normal sinus rhythm with a right bundle branch block and a left anterior fascicular block rate of 75 bpm is noted ECHO: Moderate concentric left ventricular hypertrophy with estimated ejection fraction of 65%. Mild aortic stenosis with a valve area of 1.4 cm? moderately severe mitral stenosis with a valve area of 1.2 cm? Assessment/Plan 1. Congestive heart failure-acute diastolic Patient presented with markedly elevated blood pressure and shortness of breath and bilateral pleural effusions. The etiology of the above is likely secondary to valvular heart disease with mitral and aortic stenosis. I would recommend that she undergo a right and left heart catheterization to assess her coronary anatomy and assess the valvular gradients as well. Depending on the findings further recommendations will be made. She will continue with intravenous diuretic treatment Resume beta-iraj Consider ARB or SHAYLA inhibitor 2. Valvular heart disease Patient is noted to have a murmur consistent with aortic stenosis which has been corroborated by the echocardiogram as well as mitral stenosis which is also corroborated. Is will be reevaluated with a right and left heart catheterizations and further recommendations made 3. Hypertensive emergency Patient presents with severe hypertension with concomitant congestive heart failure Aggressive diuresis Aggressive blood pressure lowering with intravenous nitroglycerin as well as beta-iraj and now topical nitroglycerin. Continue losartan If blood pressure continues to be elevated would add amlodipine 4. Abnormal cardiac enzymes The patient has evidence of abnormal cardiac enzymes. It is unclear whether the above is secondary to demand ischemia The cardiac catheterization would define her coronary anatomy. Depending on the findings of the above further recommendations will be made Thank you for allowing me to participate in the care of your patient. Please don't hesitate to call if any issues arise Addendum: Cardiac catheterization today demonstrated essentially normal coronary arteries, Severe mitral annular calcification. Severe pulmonary hypertension. Mild aortic stenosis. At least moderate mitral stenosis. Would aggressively treat blood pressure and then consider a transesophageal echocardiogram prior to discharge.
--- NOTE | 2018-06-16 13:43 | CON.PCM_ITS ---
Reason for Consult Date of Consultation: 06/16/18 Reason for Consultation: Shortness of breath History of Present Illness: The patient is a 73 year old F with no significant past medical history who was presented to the emergency room yesterday on account of shortness of breath which appeared to be worse over the last 2-3 days. She says that over the last couple of weeks she has experienced some shortness of breath with no dizziness or diaphoresis near syncope or syncope. She has not had any pedal edema she did have mild chest heaviness. She denies any palpitations. She says she may have been told in the past that she had a leaky valve. In the emergency room she was noted to be markedly hypertensive with nonspecific EKG changes. A CT scan of her chest also demonstrated bilateral pleural effusions. Her natruretic peptide was elevated as well as her troponins which were mildly elevated. Cardiology was called to evaluate her today. Currently she is free of any chest pain. [] Past Medical History Allergies/Adverse Reactions: Allergies oxycodone Adverse Reaction (Verified 06/15/18 18:54) Nausea Home Medications: Ambulatory Orders Medication Instructions Recorded Aspirin 325 mg PO DAILY@0800 06/15/18 Glipizide 5 mg PO DAILY 06/15/18 Insulin Detemir [Levemir] 40 unit SQ QHS 06/15/18 Losartan Potassium 100 mg PO DAILY 06/15/18 Metoprolol(XL)Succ [Toprol Xl 50 mg PO DAILY 06/15/18 (Beta Iraj)] Surgical History: total knee arthroplasty - Bilateral; last one was done on left knee on June 02, 2018., - - Lower back surgery with disc fusion with plate and screw. - *Family History Paternal Family History: Family History (Last Updated 06/15/18 @ 22:28 by Jalil Arredondo MD) Sister Hypertension Father FH: CABG (coronary artery bypass surgery) Heart valve disease Lives: Spouse/ Significant Other Smoking Status: Never smoker Alcohol: None Drugs: None Review of Systems - Review of Systems General: Denies: Fever, Night Sweats, Fatigue HEENT: Denies: Vision Change Cardiovascular: Reports: Chest Discomfort, Chest Pressure, Shortness of Breath. Denies: Orthopnea, PND, Peripheral Edema, Palpitations, Lightheadedness, Dizziness, Near Syncope, Syncope Respiratory: Denies: Cough, Sputum Production, Hemoptysis Gastrointestinal: Denies: Hematemesis, Hematochezia, Melena Genitourinary: Denies: Dysuria, Hematuria Muscoloskeletal: Denies: Myalgias Skin: Denies: Rash Neurological: Denies: Dizziness Psychiatric: Denies: Anxiety Endocrine: Denies: Unexplained Weight Loss Hematologic/ Lymphatic: Denies: Anemia Subjectve: Pleasant lady in no apparent distress Objective: Vital Signs Temp Pulse Resp BP Pulse Ox 98.8 F 75 20 H 136/43 H 99 06/16/18 11:39 06/16/18 12:13 06/16/18 11:39 06/16/18 11:39 06/16/18 11:39 Oxygen Flow Rate (L/min) 2 Oxygen Delivery Method Nasal Cannula Weight: 254 lb 13.67 oz Body Mass Index (BMI) 45.1 Intake and Output for Last 24 Hours 06/14/18 06/15/18 06/16/18 23:59 23:59 23:59 Intake Total 240 / 240 60 / 60 Output Total 550 / 550 Balance 240 / 240 -490 / -490 General: Awake, Alert, Oriented x 3 HEENT: PERRL, EOMI, Sclera Non Icteric Neck: Supple, Good ROM, No Lymph Node Enlargement Lungs: Clear to auscultation Cardiovascular: Regular Rhythm, Normal S1, Normal S2, No Murmurs, No Rubs, No Gallops Murmur Murmur: Grade 2/6, Early Systolic, LLSB Vascular: No Carotid Bruits, Normal Femoral Pulses, Normal Radial Pulses, Normal Dorsalis Pedal Pulse, Normal Posterior Tibial Pulses Abdomen: Bowel Sounds Present, Soft, Non Tender, No HSM, No Organomegaly Extremities: No Cyanosis, No Clubbing, No edema Skin: No Rashes Lymphatic: No Lymph Node Enlargement Neurological: No Focal Motor or Sensory Deficit Psych/Mental Status: Appropriate 06/15/18 19:00: WBC 9.2, RBC 3.32 L, Hgb 9.4 L, Hct 30.2 L, MCV 91.0, MCH 28.3, MCHC 31.1 L, RDW 13.7, RDW Differential 44.0 H, Plt Count 455 H, MPV 9.1, Immature Gran % (Auto) 0.500, Neut % (Auto) 73.5 H, Lymph % (Auto) 18.0 L, Hunt % (Auto) 6.7, Eos % (Auto) 1.0, Baso % (Auto) 0.3, Absolute Neuts (auto) 6.8, Total Counted Not Reportable 06/15/18 19:00: Sodium 135 L, Potassium 3.9, Chloride 100, Carbon Dioxide 27.0, Anion Gap 8, BUN 14, Creatinine 0.69, Est GFR (MDRD) Af Amer 108, Est GFR (MDRD) Non-Af 89, BUN/Creatinine Ratio 20.4 H, Glucose 251 H, Calcium 8.7, Troponin I 0.067 H 06/15/18 23:00: Troponin I 0.083 H 06/16/18 02:10: Sodium 137, Potassium 3.9, Chloride 101, Carbon Dioxide 28.0, Anion Gap 8, BUN 13, Creatinine 0.73, Est GFR (MDRD) Af Amer 101, Est GFR (MDRD) Non-Af 83, BUN/Creatinine Ratio 17.8, Glucose 193 H, Calcium 8.5, Triglycerides 74, Cholesterol 141, LDL Cholesterol 84, VLDL Cholesterol 15, HDL Cholesterol 42 06/16/18 02:10: PT 13.9, INR 1.1 06/16/18 02:10: Troponin I 0.077 H Rhythm: EKG: Normal sinus rhythm with a right bundle branch block and a left anterior fascicular block rate of 75 bpm is noted ECHO: Moderate concentric left ventricular hypertrophy with estimated ejection fraction of 65%. Mild aortic stenosis with a valve area of 1.4 cm? moderately severe mitral stenosis with a valve area of 1.2 cm? Assessment/Plan 1. Congestive heart failure-acute diastolic * Patient presented with markedly elevated blood pressure and shortness of breath and bilateral pleural effusions. * The etiology of the above is likely secondary to valvular heart disease with mitral and aortic stenosis. * I would recommend that she undergo a right and left heart catheterization to assess her coronary anatomy and assess the valvular gradients as well. Depending on the findings further recommendations will be made. * She will continue with intravenous diuretic treatment * Resume beta-iraj * Consider ARB or SHAYLA inhibitor * 2. Valvular heart disease * Patient is noted to have a murmur consistent with aortic stenosis which has been corroborated by the echocardiogram as well as mitral stenosis which is also corroborated. * Is will be reevaluated with a right and left heart catheterizations and further recommendations made * 3. Hypertensive emergency * Patient presents with severe hypertension with concomitant congestive heart failure * Aggressive diuresis * Aggressive blood pressure lowering with intravenous nitroglycerin as well as beta-iraj and now topical nitroglycerin. * Continue losartan * If blood pressure continues to be elevated would add amlodipine 4. Abnormal cardiac enzymes * The patient has evidence of abnormal cardiac enzymes. It is unclear whether the above is secondary to demand ischemia * The cardiac catheterization would define her coronary anatomy. * * Depending on the findings of the above further recommendations will be made * * Thank you for allowing me to participate in the care of your patient. Please don't hesitate to call if any issues arise * Addendum: Cardiac catheterization today demonstrated essentially normal coronary arteries, Severe mitral annular calcification. Severe pulmonary hypertension. Mild aortic stenosis. At least moderate mitral stenosis. Would aggressively treat blood pressure and then consider a transesophageal echocardiogram prior to discharge.
--- NOTE | 2018-06-16 15:27 | CL.D_ITS ---
Patient Name: JOVAN VELIZ Study Date: 06/16/2018 Performing: Edwin Zaragoza MD Ht: 62.99 inches 160 cm : 1945 Wt: 255.74 lbs 116 kg Age: 73 Gender: female BSA: 2.15 PROCEDURE(S) PERFORMED BW15-FAD/LHC/COR/LV CLINICAL PROFILE AND INDICATIONS Indications: Valvular Disease Heart Failure: NYHA Class: 3, Newly Diagnosed: Yes, Heart Failure Type: Diastolic Stress/Imaging Stress/Image Study Performed: No CAD Presentations: Symptom unlikely to be ischemic. CONCLUSIONS Normal coronary arteries Right heart pressures - severely elevated Mitral Valve Stenosis Moderate Mitral Valve Annular Calcification Severe annular calcification RECOMMENDATIONS Surgery consult for Valve Replacement surgery DESCRIPTION OF PROCEDURE The patient arrived to the procedure lab. The risks and benefits of the procedure as well as a full d escription of our services here and current unavailability of surgical backup were fully explained to the patient and/or their significant other prior to the catheterization. The Timeout was completed, verifying the correct patient and procedure. The patient's procedural site was prepped and draped in the usual fashion. Local anesthetic was given subcutaneously to right groin region with Lidocaine 2%. Using a modified Seldinger technique, arterial access was obtained via the right femoral artery, a 5 Fr sheath was inserted. Venous access was obtained via the right femoral vein, a 7Fr sheath was inser lorin. A 7Fr thermal dilution catheter was inserted and right heart pressures were recorded, it was the n advanced to PA position for cardiac outputs. Thermal dilution cardiac outputs were then recorded. O 2 saturations were then obtained. The Thermal dilution catheter was then removed. Left Coronary Artery selective angiography was performed in multiple views using a 5 Fr. JL4 catheter. Rig ht Coronary Artery selective angiography was then performed in multiple views using a 5 Fr. 3DRC ([facility]) catheter. Left Ventriculography was performed in CARRASCO projection using a 5 Fr. Pigtail catheter . LV to AO pullback pressures were then recorded.The arterial sheath was pulled and a Mynx closure de vice was deployed for hemostasis. The venous sheath was then pulled and manual compression applied un til hemostasis achieved CORONARY ANGIOGRAPHY DOMINANCE: Right Dominant LEFT HEART ASSESSMENT Left Ventricular Ejection Fraction: by LV Gram 60 % Normal Left Ventricular systolic function RIGHT HEART ASSESSMENT Thermal CO: 6.31 Thermal CI: 2.93 [place] CO: 4.97 [place] CI: 2.31 PW: 30 PA: 72/24 44 RV: 78/4 16 RA: 15/03 10 PVR: 177 SVR: 1090 Aortic Valve Area: >3.50 Aortic Valve Index: 1.63 Aortic Valve Mean Gradient: 11.5 Mitral Valve Area: 2.27 Mitral Valve index: 1.05 Mitral Valve Mean Gradient: 10 Right Heart pressures - elevated LEFT MAIN: Angiographically normal LEFT ANTERIOR DECENDING ARTERY: Mild luminal irregularities CIRCUMFLEX ARTERY: Mild luminal irregularities RIGHT CORONARY ARTERY: Mild luminal irregularities VALVE FINDINGS: Mitral Valve Calcification Moderate Aortic Valve Calcification - mild Mitral Valve Stenosis - moderate COMPLICATIONS No Complications PROCEDURE MEDICATIONS Oxygen: 2 L/min via nasal cannula Oxygen: 2 L/min via nasal cannula SUMMARY OF HEMODYNAMIC DATA Time AIR REST ECG 14:02:22 RA 13 (10) SV 14:21:25 PW / (30) PV 14:22:04 PA 72/24 (44) PA 14:23:23 RV 78/4, 16 14:26:42 AO 159/58 (96) SA 14:28:36 LV 186/1, 16 14:34:29 LV 192/-1, 20 14:34:36 LV 193/-1, 22 14:36:22 LV 193/-1, 22 14:36:27 LVp 195/0, 21 14:36:39 AOp 184/64 (110) 14:36:44 AOp 193/64 (112) 14:38:14 RM AIR REST 15:24:50 Valve Area (c P-P/ms Time AIR REST Mitral 2.27 10.0 mn/292 ms8.0 pk/292 ms 14:36:22 Aortic 3.50 11.5 mn/103 ms11.0 pk/103 ms 14:36:39 Type SV CO (l/m) CI (l/m/ HR Time AIR REST Thermal 75.10 6.31 2.93 84 14:02:22 Madison 59.20 4.97 2.31 84 14:02:22 Label % O2 Pres/Loc Time AIR REST AO 92 PV 14:33:14 PA 49 PA 14:33:22 RA 47 SV 14:33:26 Signed By Edwin Zaragoza MD On 06/16/2018 15:26:18 Edwin Zaragoza MD
[2018-06-16 16:45] LABS: Bedside Glucose 154 mg/dL (70-110)
[2018-06-16] MEDS: Glucerna Shake 120 ML LIQUID PO (16:47)
[2018-06-16] MEDS: Labetalol 20 MG/4 ML Vial 10 MG IV (16:47)
[2018-06-16 17:45] LABS: Base Excess 2 mmol/L (-2 to +2); Bicarbonate 25.6 mmol/L (22-26); Blood Gas Specimen Type ART; PO2 60 mmHG (75-100); SO2 92 % (95-99); Total Carbon Dioxide 27 mmol/L; pCO2 36.7 mmHg (35-45); pH 7.45 (7.35-7.45)
[2018-06-16 17:46] LABS: Blood Gas Specimen Type VEN; VBG BASE EXCESS 3 mmol/L (-1.0-3.5); VBG Bicarbonate 28 mmol/L (22-26); VBG Oxygen Content 29 mmol/L (23-33); VBG PO2 27 mmHg (25-40); VBG SO2 49 % (50-70); VBG pCO2 47.3 mmHg (41-51); VBG pH 7.38 (7.32-7.42)
[2018-06-16 17:46] LABS: Blood Gas Specimen Type VEN; VBG BASE EXCESS 2 mmol/L (-1.0-3.5); VBG Bicarbonate 27 mmol/L (22-26); VBG Oxygen Content 28 mmol/L (23-33); VBG PO2 27 mmHg (25-40); VBG SO2 47 % (50-70); VBG pCO2 46.1 mmHg (41-51); VBG pH 7.38 (7.32-7.42)
--- NOTE | 2018-06-16 20:25 | NURSING ---
Pt has to urinate but is waiting for her bedrest to be complete at 20:55, she refuses to use the bedpan at this time, stating it is to difficult for her to do so.
--- NOTE | 2018-06-16 20:40 | NURSING ---
Pt was agreeable at this time to use the bedpan.
[2018-06-16] MEDS: Atorvastatin Calcium 80 MG Tablet PO (21:02)
[2018-06-16] MEDS: Heparin Injection (Vial) 5,000 UNIT/ML VIAL 5000 UNIT SC (21:02)
--- NOTE | 2018-06-16 21:15 | NURSING ---
Pt up to walk to the summers at this time her oxygen did decrease while walking, she was placed on 2L NC when put back in bed, she had some chest tightness at this time, once back in bed the tightness started to resolve and her oxygen level came back up into the 90's. She state I feel much better now that i am in bed. Will continue to monitor at this time.
[2018-06-16] MEDS: Insulin Lispro 100 UNIT/ML INSULN.PEN SC (22:08)
[2018-06-16] MEDS: amLODIPine 10 MG Tablet PO (22:20)
[2018-06-16 22:21] LABS: Bedside Glucose 224 mg/dL (70-110)
[2018-06-17] VITALS (14 sets, daily range): BP systolic 142–180; BP diastolic 40–64; PULSE 71–92; RESP 16–21; TEMP 36.8–37.2; O2SAT 92–98
[2018-06-17] MEDS: Labetalol 20 MG/4 ML Vial 10 MG IV ×2 (00:44→20:58)
[2018-06-17] MEDS: 0.9% NaCl Peripheral Flush Adult/Peds IV ×2 (00:44→20:59)
[2018-06-17 04:23] LABS: Absolute Lymphocyte Count 1.34 X10^3/ul (0.83-4.51); Basophil# 0.02 X10^3/uL; Basophil% 0.3 % (0-1); Eosinophil# 0.18 X10^3/uL; Eosinophils% 2.5 % (0-5); Hematocrit 25.9 % (37-47); Lymphocyte # 1.34 X10^3/ul (4.0); Lymphocyte % 18.7 % (19-41); Mean Corp Hgb Conc 30.9 g/gl (32-36); Mean Corpuscular Hgb 28.3 pg (27.0-32.0); Mean Corpuscular Volume 91.5 fL (81-99); Mean Platelet Vol. 9.5 fl (6.2-12.0); Monocyte% 8.4 % (0-10); Neutrophil # 5.01 X10^3/uL (2.7-7.7); Neutrophil % 69.8 % (47-70); POSITIVE COUNT NO; POSITIVE DIFFERENTIAL NO; POSITIVE MORPHOLOGY NO; Platelet Count 390 K/mm3 (150-450); RBC Distribution Width CV 14.4 % (11.6-14.6); RBC Distribution Width SD 47.9 fl (35.1-43.9); Red Blood Count 2.83 M/mm3 (4.2-5.4); White Blood Count 7.2 K/mm3 (4.4-11.0)
[2018-06-17 04:37] LABS: Anion Gap 8 (5-15); BUN 16 mg/dL (7-18); BUN/Creat Ratio 22.2 RATIO (10-20); Calcium,Total 8.3 mg/dL (8.5-10.1); Chloride 101 mmol/L (98-107); Creatinine, Serum 0.72 mg/dL (0.55-1.02); EST Glomerular Filtration Rate 84 mL/min (>60); Est Glom Filt Rate - Afr Amer 102 mL/min (>60); Estimated Creatinine Clearance 42.07 ml/min; Glucose 207 mg/dL (74-106); Potassium 5.2 mmol/L (3.5-5.1); Sodium Level 137 mmol/L (136-145)
[2018-06-17 07:00] LABS: Bedside Glucose 192 mg/dL (70-110)
--- NOTE | 2018-06-17 07:22 | PN_ITS ---
Patient Problems: Active and Suspected Problems (Last Updated 06/15/18 @ 22:25 by Jalil Arredondo MD) Hypertensive emergency (Acute) Chest pain (Acute) Subjective: Patient is still tachypneic respiratory rate 20-24/min, on 2 L of oxygen. Cath finding and echo finding explained to the patient and family members at the bedside Patient had right and left cath and found valvular heart disease, moderately severe MS with mitral annular valve calcification and thickening, mild MR with mild and pulmonary hypertension Vitals/I&O's: Vital Signs Temp Pulse Resp BP Pulse Ox 98.9 F 76 21 H 142/62 H 96 06/17/18 04:09 06/17/18 04:09 06/17/18 04:09 06/17/18 04:09 06/17/18 04:09 Oxygen Flow Rate (L/min) 2 Oxygen Delivery Method Nasal Cannula Weight: 254 lb 13.67 oz Body Mass Index (BMI) 45.1 Intake and Output for Last 24 Hours 06/15/18 06/16/18 06/17/18 23:59 23:59 23:59 Intake Total 240 / 240 689 / 689 275 / 275 Output Total 550 / 550 Balance 240 / 240 139 / 139 275 / 275 General: Alert, Oriented x3, Cooperative HEENT: Atraumatic, PERRLA, EOMI, Normocephalic Neck: Supple, No JVD, Negative Carotid Bruits Lungs: Diminished, Rales - Air entry is diminished., Short of Breath Cardiovascular: Regular rate, Normal S1, Normal S2, No murmurs, Murmur - Systolic wound present over mitral area with radiation to apex and lower left sternal border Abdomen: Bowel Sounds Present, Soft, Non Tender, Non-Distended Extremities: Capillary Refill Less than 3 Seconds, Edema Skin: No rashes, No breakdown Musculoskeletal: No Tenderness to Palpation of Joints or Extremities Neurological: Cranial nerves II-XII grossly intact Psych/Mental Status: Normal Affect, Appropriate Laboratory Results 06/16/18 11:30: POC Glucose 146 H 06/16/18 14:24: Specimen Type ART, pH 7.45, Bicarbonate Actual 25.6, POC Total CO2 27, Base Excess 2, O2 Saturation 92 L, ABG pCO2 36.7, ABG pO2 60 L 06/16/18 14:30: Specimen Type NOEMI, VBG pH 7.38, VBG pO2 27, VBG O2 Sat (Calc) 49 L, VBG O2 Content 29, VBG Base Excess 3, POC Mix VBG pCO2 Pt Tmp 47.3 06/16/18 14:33: Specimen Type NOEMI, VBG pH 7.38, VBG pO2 27, VBG O2 Sat (Calc) 47 L, VBG O2 Content 28, VBG Base Excess 2, POC Mix VBG pCO2 Pt Tmp 46.1 06/16/18 16:41: POC Glucose 154 H 06/16/18 22:06: POC Glucose 224 H 06/17/18 04:00: WBC 7.2, RBC 2.83 L, Hgb 8.0 L, Hct 25.9 L, MCV 91.5, MCH 28.3, MCHC 30.9 L, RDW 14.4, RDW Differential 47.9 H, Plt Count 390, MPV 9.5, Immature Gran % (Auto) 0.300, Neut % (Auto) 69.8, Lymph % (Auto) 18.7 L, [place] % (Auto) 8.4, Eos % (Auto) 2.5, Baso % (Auto) 0.3, Absolute Neuts (auto) 5.0, Absolute Lymphs (auto) 1.34, Total Counted Not Reportable 06/17/18 04:00: Sodium 137, Potassium 5.2 H, Chloride 101, Carbon Dioxide 28.0, Anion Gap 8, BUN 16, Creatinine 0.72, Estim Creat Clear Calc 42.07, Est GFR (MDRD) Af Amer 102, Est GFR (MDRD) Non-Af 84, BUN/Creatinine Ratio 22.2 H, Glucose 207 H, Calcium 8.3 L 06/17/18 06:49: POC Glucose 192 H Current Medications Acetaminophen (Tylenol) 650 mg PO Q6H PRN PRN PRN Reason: Mild Pain (1-3)/Temp > 100.7 F Aspirin (Ecotrin) 81 mg PO DAILY@0800 [facility] Last Admin: 06/16/18 12:13 Dose: 81 mg Atorvastatin Calcium (Lipitor) 80 mg PO QHS [facility] Last Admin: 06/16/18 21:02 Dose: 80 mg Dextrose (D50w Syringe) 0 gm IV X1 PRN; Protocol PRN Reason: Hypoglycemia Glipizide (Glucotrol) 5 mg PO DAILYCM [facility] Last Admin: 06/16/18 12:15 Dose: Not Given Glucagon () 1 mg IM .X1 PRN PRN Reason: Hypoglycemia Heparin Sodium (Beef Lung) (Heparin 500 Unit/5 Ml (100/Ml)) 500 unit IV UD PRN PRN Reason: HEPARIN FLUSH Heparin Sodium (Porcine) (Heparin Na) 5,000 unit SC BID [facility] Last Admin: 06/16/18 21:02 Dose: 5,000 unit Sodium Chloride () 1,000 mls @ 15 mls/hr IV .Q48H [facility] Last Admin: 06/16/18 12:12 Dose: 15 mls/hr Insulin Glargine (Lantus ([facility])) 25 units SC QHS [facility] Last Admin: 06/16/18 22:07 Dose: 25 units Insulin Human Lispro (Humalog Kwikpen ([facility])) 0 unit SC ACHS [facility]; Protocol Last Admin: 06/16/18 22:08 Dose: 2 u Labetalol HCl (Trandate) 10 mg IV Q4H PRN PRN PRN Reason: SBP > 160 Last Admin: 06/17/18 00:44 Dose: 10 mg Labetalol HCl (Trandate) 5 mg IV X1 PRN PRN Reason: SBP > 160 prior to sheath pull Stop: 06/18/18 14:52 Losartan Potassium (Cozaar) 100 mg PO DAILY [facility] Last Admin: 06/16/18 12:13 Dose: 100 mg Magnesium Hydroxide (Milk Of Magnesia) 30 ml PO DAILY PRN PRN Reason: Constipation Metoprolol Succinate (Toprol Xl (Beta Iraj)) 100 mg PO DAILY [facility] Morphine Sulfate () 1 - 2 mg IV Q4H PRN PRN PRN Reason: MOD-SEVERE PAIN (4-10/10) Last Admin: 06/16/18 02:15 Dose: 2 mg Nutritional Formula (Lactose Free) (Glucerna Shake) 120 ml PO 4X/DAY [facility] Last Admin: 06/16/18 21:22 Dose: Not Given Ondansetron HCl (Zofran) 4 mg IV Q8H PRN PRN PRN Reason: NAUSEA Sodium Chloride () 5 - 15 ml IV UD PRN PRN Reason: SALINE FLUSH Last Admin: 06/17/18 00:44 Dose: 10 ml Zolpidem Tartrate (Ambien (Generic)) 5 mg PO QHS PRN PRN PRN Reason: INSOMNIA Medical Necessity - Tobacco Use Smoking Status: Never smoker Assessment/Plan All Active Problems (Last Updated 06/15/18 @ 22:25 by Jalil Arredondo MD) Hypertensive emergency (Acute) Chest pain (Acute) The patient is a 73 year old F with a significant history of hypertension; diabetes mellitus; and a leaky valve who presented with progressive worsening of shortness of breath for 2-3 weeks got the worst last 2-3 hours along with chest pain and found to have severely elevated blood pressure; radiographic evidence of bilateral pleural effusion; and troponin in the indeterminate range, consistent with hypertensive emergency and was admitted in the ICU. 1 hypertensive emergency: Systolic blood pressure was 190-210 in the ED currently blood pressure systolic is in the 150s. Heart rate 70-80/min. Blood pressure dropped to 150s/101 on 1 dose of labetalol 10 mg IV given in ED currently on oral medications losartan, Nitropaste and labetalol 10 mg IV as needed. EKG shows normal sinus rhythm with right bundle branch block, left posterior fascicular block at 75 bpm. No previous EKG in our system to compare with. Cardiac cath and 2D echo shows moderately severe MS with mild MR with mitral valve annular calcification and mild . Severe TR. Severe pulmonary hypertension was treated from left diastolic heart failure with preserved EF. Plan for [place]ARRON tomorrow a.m. Discussed with the electronics utility worker. 2. Bilateral pleural effusion most probably secondary to CHF/hypertensive emergency: CT angiogram in the ER shows bilateral pleural effusions with interlobular septal thickening suggesting pulmonary edema. No PE/arterial dissection found. On Lasix as needed if the patient gets very short of breath but currently shortness of breath is better. 3. Atypical chest pain with intermittent troponin probably from hypertensive emergency and heart failure: Campground Cleaning Attendant evaluation. 4. Diabetes mellitus type 2: On Lantus and sliding scale Humalog insulin 5. DVT prophylaxis on heparin 500o subcutaneous twice daily Active Medications Acetaminophen (Tylenol) 650 mg PO Q6H PRN PRN PRN Reason: Mild Pain (1-3)/Temp > 100.7 F Aspirin (Ecotrin) 81 mg PO DAILY@0800 [facility] Atorvastatin Calcium (Lipitor) 80 mg PO QHS [facility] Last Admin: 01/13/19 23:23 Dose: 80 mg Dextrose (D50w Syringe) 0 gm IV X1 PRN; Protocol PRN Reason: Hypoglycemia Glipizide (Glucotrol) 5 mg PO DAILYCM [facility] Glucagon () 1 mg IM .X1 PRN PRN Reason: Hypoglycemia Insulin Glargine (Lantus (Bkc)) 25 units SC QHS [facility] Last Admin: 06/15/18 23:22 Dose: 25 units Insulin Human Lispro (Humalog Kwikpen (Bk)) 0 unit SQ Q6 [facility]; Protocol Last Admin: 06/16/18 06:10 Dose: 2 units Labetalol HCl (Trandate) 10 mg IV Q4H PRN PRN PRN Reason: SBP > 160 Losartan Potassium (Cozaar) 100 mg PO DAILY [facility] Magnesium Hydroxide (Milk Of Magnesia) 30 ml PO DAILY PRN PRN Reason: Constipation Metoprolol Succinate (Toprol Xl (Beta Iraj)) 50 mg PO DAILY [facility] Morphine Sulfate () 1 - 2 mg IV Q4H PRN PRN PRN Reason: MOD-SEVERE PAIN (4-1010) Last Admin: 06/16/18 02:15 Dose: 2 mg Nitroglycerin (Nitrobid) 1 inch TRANSDERM. Q6 [facility] Last Admin: 06/16/18 06:11 Dose: 1 inch Nutritional Formula (Lactose Free) (Glucerna Shake) 120 ml PO 4X/DAY [facility] Ondansetron HCl (Zofran) 4 mg IV Q8H PRN PRN PRN Reason: NAUSEA Sodium Chloride () 5 - 15 ml IV UD PRN PRN Reason: SALINE FLUSH Last Admin: 06/16/18 06:15 Dose: 10 ml Zolpidem Tartrate (Ambien (Generic)) 5 mg PO QHS PRN PRN PRN Reason: INSOMNIA Code Visit Inpatient E&M: 13329 Disch Hosp
--- NOTE | 2018-06-17 07:23 | PCM.PN.CARD ---
Subjectve: Patient seen and evaluated. Appears to be doing well. However complained of mild dizziness yesterday. Objective: Vital Signs Temp Pulse Resp BP Pulse Ox 98.9 F 76 21 H 142/62 H 96 06/17/18 04:09 06/17/18 04:09 06/17/18 04:09 06/17/18 04:09 06/17/18 04:09 Oxygen Flow Rate (L/min) 2 Oxygen Delivery Method Nasal Cannula Weight: 254 lb 13.67 oz Body Mass Index (BMI) 45.1 Intake and Output for Last 24 Hours 06/15/18 06/16/18 06/17/18 23:59 23:59 23:59 Intake Total 240 / 240 689 / 689 275 / 275 Output Total 550 / 550 Balance 240 / 240 139 / 139 275 / 275 General: Awake, Alert, Oriented x 3 HEENT: PERRL, EOMI, Sclera Non Icteric, Pallor Neck: Supple, Good ROM, No Lymph Node Enlargement Lungs: Clear to auscultation Cardiovascular: Regular Rhythm, Normal S1, Normal S2, No Murmurs, No Rubs, No Gallops Murmur Murmur: Grade 2/6, Early Systolic, LLSB Vascular: No Carotid Bruits, Normal Femoral Pulses, Normal Radial Pulses, Normal Dorsalis Pedal Pulse, Normal Posterior Tibial Pulses Abdomen: Bowel Sounds Present, Soft, Non Tender, No HSM, No Organomegaly Extremities: No Cyanosis, No Clubbing, No edema Neurological: No Focal Motor or Sensory Deficit 06/16/18 14:24: pH 7.45, Bicarbonate Actual 25.6, POC Total CO2 27, Base Excess 2, O2 Saturation 92 L, ABG pCO2 36.7, ABG pO2 60 L 06/16/18 14:30: VBG pH 7.38, VBG pO2 27, VBG O2 Sat (Calc) 49 L, VBG O2 Content 29, VBG Base Excess 3 06/16/18 14:33: VBG pH 7.38, VBG pO2 27, VBG O2 Sat (Calc) 47 L, VBG O2 Content 28, VBG Base Excess 2 06/17/18 04:00: WBC 7.2, RBC 2.83 L, Hgb 8.0 L, Hct 25.9 L, MCV 91.5, MCH 28.3, MCHC 30.9 L, RDW 14.4, RDW Differential 47.9 H, Plt Count 390, MPV 9.5, Immature Gran % (Auto) 0.300, Neut % (Auto) 69.8, Lymph % (Auto) 18.7 L, [place] % (Auto) 8.4, Eos % (Auto) 2.5, Baso % (Auto) 0.3, Absolute Neuts (auto) 5.0, Total Counted Not Reportable 06/17/18 04:00: Sodium 137, Potassium 5.2 H, Chloride 101, Carbon Dioxide 28.0, Anion Gap 8, BUN 16, Creatinine 0.72, Est GFR (MDRD) Af Amer 102, Est GFR (MDRD) Non-Af 84, BUN/Creatinine Ratio 22.2 H, Glucose 207 H, Calcium 8.3 L Rhythm: EKG: ECHO: Stress Test: Cardiac Cath: PCI: CT Surgery: Holter monitor: EPS: PPM: CXR: Chest CT Scan: Medical Necessity - Tobacco Use Smoking Status: Never smoker Assessment/Plan 1. Congestive heart failure-acute diastolic Patient presented with markedly elevated blood pressure and shortness of breath and bilateral pleural effusions. The etiology of the above is likely secondary to valvular heart disease with mitral and aortic stenosis. Her right and left heart catheterization demonstrated severe pulmonary hypertension, normal coronary arteries and preserved ejection fraction She will continue with intravenous diuretic treatment Resume beta-philipp Consider ARB or SHAYLA inhibitor 2. Valvular heart disease Patient is noted to have a murmur consistent with aortic stenosis which has been corroborated by the echocardiogram as well as mitral stenosis which is also corroborated. She does have mild to moderate aortic stenosis and at least moderately severe mitral stenosis. Would recommend a transesophageal echocardiogram prior to discharge for further clarification of the above 3. Hypertensive emergency Patient presents with severe hypertension with concomitant congestive heart failure Aggressive diuresis Continue losartan If blood pressure continues to be elevated would add amlodipine 4. Abnormal cardiac enzymes The patient has evidence of abnormal cardiac enzymes. The above was likely from demand ischemia. Thank you for allowing me to participate in the care of your patient. Please don't hesitate to call if any issues arise Addendum: Cardiac catheterization today demonstrated essentially normal coronary arteries, Severe mitral annular calcification. Severe pulmonary hypertension. Mild aortic stenosis. At least moderate mitral stenosis. Would aggressively treat blood pressure and then consider a transesophageal echocardiogram prior to discharge.
--- NOTE | 2018-06-17 07:26 | PN.CARD_ITS ---
Subjectve: Patient seen and evaluated. Appears to be doing well. However complained of mild dizziness yesterday. Objective: Vital Signs Temp Pulse Resp BP Pulse Ox 98.9 F 76 21 H 142/62 H 96 06/17/18 04:09 06/17/18 04:09 06/17/18 04:09 06/17/18 04:09 06/17/18 04:09 Oxygen Flow Rate (L/min) 2 Oxygen Delivery Method Nasal Cannula Weight: 254 lb 13.67 oz Body Mass Index (BMI) 45.1 Intake and Output for Last 24 Hours 06/15/18 06/16/18 06/17/18 23:59 23:59 23:59 Intake Total 240 / 240 689 / 689 275 / 275 Output Total 550 / 550 Balance 240 / 240 139 / 139 275 / 275 General: Awake, Alert, Oriented x 3 HEENT: PERRL, EOMI, Sclera Non Icteric, Pallor Neck: Supple, Good ROM, No Lymph Node Enlargement Lungs: Clear to auscultation Cardiovascular: Regular Rhythm, Normal S1, Normal S2, No Murmurs, No Rubs, No Gallops Murmur Murmur: Grade 2/6, Early Systolic, LLSB Vascular: No Carotid Bruits, Normal Femoral Pulses, Normal Radial Pulses, Normal Dorsalis Pedal Pulse, Normal Posterior Tibial Pulses Abdomen: Bowel Sounds Present, Soft, Non Tender, No HSM, No Organomegaly Extremities: No Cyanosis, No Clubbing, No edema Neurological: No Focal Motor or Sensory Deficit 06/16/18 14:24: pH 7.45, Bicarbonate Actual 25.6, POC Total CO2 27, Base Excess 2, O2 Saturation 92 L, ABG pCO2 36.7, ABG pO2 60 L 06/16/18 14:30: VBG pH 7.38, VBG pO2 27, VBG O2 Sat (Calc) 49 L, VBG O2 Content 29, VBG Base Excess 3 06/16/18 14:33: VBG pH 7.38, VBG pO2 27, VBG O2 Sat (Calc) 47 L, VBG O2 Content 28, VBG Base Excess 2 06/17/18 04:00: WBC 7.2, RBC 2.83 L, Hgb 8.0 L, Hct 25.9 L, MCV 91.5, MCH 28.3, MCHC 30.9 L, RDW 14.4, RDW Differential 47.9 H, Plt Count 390, MPV 9.5, Immature Gran % (Auto) 0.300, Neut % (Auto) 69.8, Lymph % (Auto) 18.7 L, [place] % (Auto) 8.4, Eos % (Auto) 2.5, Baso % (Auto) 0.3, Absolute Neuts (auto) 5.0, Total Counted Not Reportable 06/17/18 04:00: Sodium 137, Potassium 5.2 H, Chloride 101, Carbon Dioxide 28.0, Anion Gap 8, BUN 16, Creatinine 0.72, Est GFR (MDRD) Af Amer 102, Est GFR (MDRD) Non-Af 84, BUN/Creatinine Ratio 22.2 H, Glucose 207 H, Calcium 8.3 L Rhythm: EKG: ECHO: Stress Test: Cardiac Cath: PCI: CT Surgery: Holter monitor: EPS: PPM: CXR: Chest CT Scan: Medical Necessity - Tobacco Use Smoking Status: Never smoker Assessment/Plan 1. Congestive heart failure-acute diastolic * Patient presented with markedly elevated blood pressure and shortness of breath and bilateral pleural effusions. * The etiology of the above is likely secondary to valvular heart disease with mitral and aortic stenosis. * Her right and left heart catheterization demonstrated severe pulmonary hypertension, normal coronary arteries and preserved ejection fraction * She will continue with intravenous diuretic treatment * Resume beta-philipp * Consider ARB or SHAYLA inhibitor * 2. Valvular heart disease * Patient is noted to have a murmur consistent with aortic stenosis which has been corroborated by the echocardiogram as well as mitral stenosis which is also corroborated. * She does have mild to moderate aortic stenosis and at least moderately severe mitral stenosis. * Would recommend a transesophageal echocardiogram prior to discharge for further clarification of the above 3. Hypertensive emergency * Patient presents with severe hypertension with concomitant congestive heart failure * Aggressive diuresis * * Continue losartan * If blood pressure continues to be elevated would add amlodipine 4. Abnormal cardiac enzymes * The patient has evidence of abnormal cardiac enzymes. The above was likely from demand ischemia. * * Thank you for allowing me to participate in the care of your patient. Please don't hesitate to call if any issues arise * Addendum: Cardiac catheterization today demonstrated essentially normal coronary arteries, Severe mitral annular calcification. Severe pulmonary hypertension. Mild aortic stenosis. At least moderate mitral stenosis. Would aggressively treat blood pressure and then consider a transesophageal echocardiogram prior to discharge.
[2018-06-17] MEDS: glipiZIDE 5 MG Tablet PO (09:29)
[2018-06-17] MEDS: Aspirin E.C. 81 MG Tablet PO (09:29)
[2018-06-17] MEDS: Heparin Injection (Vial) 5,000 UNIT/ML VIAL 5000 UNIT SC ×2 (09:30→20:59)
[2018-06-17] MEDS: Insulin Lispro 100 UNIT/ML INSULN.PEN SC ×4 (09:30→20:59)
[2018-06-17] MEDS: Metoprolol(XL)Succ 100 MG Tablet PO (09:30)
[2018-06-17] MEDS: Losartan Potassium 100 MG Tablet PO (09:30)
[2018-06-17 09:41] LABS: Bedside Glucose 185 mg/dL (70-110)
[2018-06-17 11:50] LABS: Bedside Glucose 212 mg/dL (70-110)
[2018-06-17] MEDS: Glucerna Shake 120 ML LIQUID PO ×3 (15:02→21:00)
[2018-06-17 16:46] LABS: Bedside Glucose 153 mg/dL (70-110)
[2018-06-17] MEDS: Atorvastatin Calcium 80 MG Tablet PO (20:58)
[2018-06-17 23:16] LABS: Bedside Glucose 213 mg/dL (70-110)
[2018-06-18] VITALS (16 sets, daily range): BP systolic 134–208; BP diastolic 48–179; PULSE 69–91; RESP 16–18; TEMP 36.7–37.2; O2SAT 94–98; BMI 45.1
[2018-06-18] MEDS: Ondansetron 4 MG/2 ML Vial IV (00:33)
[2018-06-18] MEDS: 0.9% NaCl Peripheral Flush Adult/Peds IV ×3 (00:33→06:01)
[2018-06-18] MEDS: Labetalol 20 MG/4 ML Vial 10 MG IV ×2 (01:01→06:01)
[2018-06-18 04:08] LABS: Hematocrit 25.1 % (37-47); Hemoglobin 7.5 g/dl (12.0-15.0); Mean Corp Hgb Conc 29.9 g/gl (32-36); Mean Corpuscular Hgb 27.7 pg (27.0-32.0); Mean Corpuscular Volume 92.6 fL (81-99); RBC Distribution Width CV 13.5 % (11.6-14.6); RBC Distribution Width SD 44.4 fl (35.1-43.9); Red Blood Count 2.71 M/mm3 (4.2-5.4); White Blood Count 6.2 K/mm3 (4.4-11.0)
[2018-06-18 04:09] LABS: Absolute Lymphocyte Count 1.52 X10^3/ul (0.83-4.51); Absolute Neutrophil Count 3.7 X10^3/uL (2.0-7.7); Basophil# 0.03 X10^3/uL; Basophil% 0.5 % (0-1); Eosinophil# 0.32 X10^3/uL; Eosinophils% 5.2 % (0-5); Lymphocyte # 1.52 X10^3/ul (4.0); Lymphocyte % 24.7 % (19-41); Mean Platelet Vol. 9.3 fl (6.2-12.0); Monocyte# 0.57 X10^3/uL; Monocyte% 9.3 % (0-10); Platelet Count 428 K/mm3 (150-450)
[2018-06-18 04:21] LABS: POSITIVE COUNT NO; POSITIVE DIFFERENTIAL NO; POSITIVE MORPHOLOGY NO
[2018-06-18 04:34] LABS: International Normalized Ratio 1.1; Partial Thromboplast Time 32.6 Seconds (24.1-36.2); Prothrombin Time (Protime)PT. 14.5 SECONDS (11.7-14.9)
[2018-06-18 04:39] LABS: Anion Gap 7 (5-15); BUN 13 mg/dL (7-18); BUN/Creat Ratio 18.7 RATIO (10-20); Calcium,Total 8.3 mg/dL (8.5-10.1); Chloride 102 mmol/L (98-107); Creatinine, Serum 0.69 mg/dL (0.55-1.02); EST Glomerular Filtration Rate 88 mL/min (>60); Est Glom Filt Rate - Afr Amer 107 mL/min (>60); Estimated Creatinine Clearance 42.07 ml/min; Glucose 199 mg/dL (74-106); Sodium Level 138 mmol/L (136-145)
[2018-06-18 07:21] LABS: Bedside Glucose 192 mg/dL (70-110)
--- NOTE | 2018-06-18 08:58 | ECHOTEE_ITS ---
Reason For Study: Murmur Medication SHARRON probe passed without difficulty. No complications were noted. Cetacaine Topical Elizabeth given X3 orally. Versed 1 mg given slow IVP. Fentanyl 25 mcg given slow IVP. Left Ventricle Normal LV size. Left ventricular systolic function is normal. The estimated ejection fraction is 60 %. No regional wall motion abnormalities noted. Right Ventricle Normal RV size. Normal systolic function. Atria Normal atrial septum. Normal left atrium. Normal right atrium. Mitral Valve Rheumatic appearing mitral valve. Mean transmitral valve gradient 11 mmHg. Mild-Moderate mitral valve stenosis. Mitral valve area. 2.5cm^ by pressure half time and 1.6cm^by VTI. Tricuspid Valve Normal tricuspid valve. Mild (1+) tricuspid valve insufficiency. Aortic Valve Trisinus/trileaflet aortic valve. Moderate focal aortic valve thickening. Mild to moderate aortic stenosis. Mean aortic valve gradient 16 mmHg. Calculated aortic valve area (continuity equation) is 1.6 cm2. Pulmonic Valve Normal pulmonic valve. Vessels Normal aortic root. The pulmonary artery is normal size. Pericardium No pericardial effusion. MMode/2D Measurements & Calculations LVOT diam: 2.0 cm LVOT area: 3.1 cm2 Doppler Measurements & Calculations MV V2 max: 238.3 cm/sec Ao V2 max: 267.3 cm/sec LV V1 max: 133.5 cm/sec MV max P.8 mmHg Ao V2 mean: 190.5 cm/sec LV V1 max P.1 mmHg MV V2 mean: 158.0 cm/sec Ao V2 VTI: 63.3 cm LV V1 mean P.1 mmHg MV mean P.0 mmHg LENA(I,D): 1.6 cm2 LV V1 mean: 95.9 cm/sec MV V2 VTI: 63.9 cm LV V1 VTI: 32.5 cm MVA(VTI): 1.6 cm2 LENA(V,D): 1.6 cm2 SV(LVOT): 102.0 ml Interpretation Summary 2.5cm^ by pressure half time and 1.6cm^by VTI Mean transmitral valve gradient 11 mmHg. Normal LV size. Left ventricular systolic function is normal. The estimated ejection fraction is 60 %. Moderate focal aortic valve thickening. Mild to moderate aortic stenosis. Calculated aortic valve area (continuity equation) is 1.6 cm2. Mean aortic valve gradient 16 mmHg. Ordering Physician: Edwin Zaragoza Referring Physician: Jalil Arredondo Performed By: Priscilla Lawson, JORGE A
[2018-06-18] MEDS: 0.9% Normal Saline 1,000 ML 15 ML IV (11:36)
--- NOTE | 2018-06-18 11:41 | NURSING ---
Called report to Tess in [facility] for SHARRON at this time
[2018-06-18 11:56] LABS: Bedside Glucose 177 mg/dL (70-110)
[2018-06-18 15:27] LABS: Ferritin 168 ng/mL (8-252); Iron 25 ug/dL (50-170); Iron Binding Capacity,Total 245 ug/dL (250-450); PERCENT IRON SATURATION 10.2 % (15.0-55.0)
[2018-06-18 16:25] LABS: Bedside Glucose 200 mg/dL (70-110)
[2018-06-18] MEDS: Insulin Lispro 100 UNIT/ML INSULN.PEN SC ×2 (17:07→22:39)
--- NOTE | 2018-06-18 17:54 | PCM.PN.HOSP ---
Patient Problems: Active and Suspected Problems (Last Updated 06/15/18 @ 22:25 by Jalil Arredonod MD) Hypertensive emergency (Acute) Chest pain (Acute) Subjective: Patient had SHARRON today. Discussed with Dr. bruno. Hemoglobin is low. No obvious external blood loss. Most probably secondary to heparin which she had initially. Vitals/I&O's: Vital Signs Temp Pulse Resp BP Pulse Ox 98.1 F 75 16 154/73 H 95 06/18/18 13:24 06/18/18 15:00 06/18/18 13:24 06/18/18 13:24 06/18/18 13:24 Oxygen Flow Rate (L/min) 2 Oxygen Delivery Method Nasal Cannula Weight: 254 lb 13.67 oz Body Mass Index (BMI) 45.1 Intake and Output for Last 24 Hours 06/16/18 06/17/18 06/18/18 23:59 23:59 23:59 Intake Total 689 / 689 825 / 825 0 / 0 Output Total 550 / 550 200 / 200 Balance 139 / 139 825 / 825 -200 / -200 General: Alert, Oriented x3, Cooperative HEENT: Atraumatic, PERRLA, EOMI, Normocephalic Neck: Supple, No JVD, Negative Carotid Bruits Lungs: Diminished, Rales - Occasional rales Cardiovascular: Regular rate, Regular Rhythm, Normal S1, Normal S2, Murmur Abdomen: Bowel Sounds Present, Soft, Non Tender, Non-Distended Extremities: Capillary Refill Less than 3 Seconds, Edema Skin: No rashes, No breakdown Musculoskeletal: No Tenderness to Palpation of Joints or Extremities Neurological: Cranial nerves II-XII grossly intact Psych/Mental Status: Normal Affect, Appropriate Laboratory Results 06/17/18 20:51: POC Glucose 213 H 06/18/18 03:48: Sodium 138, Potassium 4.0, Chloride 102, Carbon Dioxide 29.0, Anion Gap 7, BUN 13, Creatinine 0.69, Estim Creat Clear Calc 42.07, Est GFR (MDRD) Af Amer 107, Est GFR (MDRD) Non-Af 88, BUN/Creatinine Ratio 18.7, Glucose 199 H, Calcium 8.3 L 06/18/18 03:48: WBC 6.2, RBC 2.71 L, Hgb 7.5 L, Hct 25.1 L, MCV 92.6, MCH 27.7, MCHC 29.9 L, RDW 13.5, RDW Differential 44.4 H, Plt Count 428, MPV 9.3, Immature Gran % (Auto) 0.300, Neut % (Auto) 60.0, Lymph % (Auto) 24.7, [place] % (Auto) 9.3, Eos % (Auto) 5.2 H, Baso % (Auto) 0.5, Absolute Neuts (auto) 3.7, Absolute Lymphs (auto) 1.52, Total Counted Not Reportable 06/18/18 03:48: PT 14.5, INR 1.1, APTT 32.6 06/18/18 03:48: Iron 25 L, TIBC 245 L, Iron Saturation 10.2 L, Ferritin 168, Folate 23.90 06/18/18 07:04: POC Glucose 192 H 06/18/18 11:31: POC Glucose 177 H 06/18/18 16:18: POC Glucose 200 H Current Medications Acetaminophen (Tylenol) 650 mg PO Q6H PRN PRN PRN Reason: Mild Pain (1-3)/Temp > 100.7 F Atorvastatin Calcium (Lipitor) 80 mg PO QHS [facility] Last Admin: 06/17/18 20:58 Dose: 80 mg Dextrose (D50w Syringe) 0 gm IV X1 PRN; Protocol PRN Reason: Hypoglycemia Glipizide (Glucotrol) 5 mg PO DAILYCM [facility] Last Admin: 06/18/18 10:09 Dose: Not Given Glucagon () 1 mg IM .X1 PRN PRN Reason: Hypoglycemia Sodium Chloride () 1,000 mls @ 15 mls/hr IV .Q48H [facility] Last Admin: 06/18/18 11:36 Dose: 15 mls/hr Sodium Chloride () 1,000 mls @ 0 mls/hr IV .Q0M [facility] Insulin Glargine (Lantus (Bk)) 25 units SC QHS [facility] Last Admin: 06/17/18 20:59 Dose: 25 units Insulin Human Lispro (Humalog Kwikpen ([facility])) 0 unit SC ACHS [facility]; Protocol Last Admin: 06/18/18 17:07 Dose: 2 u Labetalol HCl (Trandate) 10 mg IV Q4H PRN PRN PRN Reason: SBP > 160 Last Admin: 06/18/18 06:01 Dose: 10 mg Losartan Potassium (Cozaar) 100 mg PO DAILY [facility] Last Admin: 06/18/18 10:10 Dose: Not Given Magnesium Hydroxide (Milk Of Magnesia) 30 ml PO DAILY PRN PRN Reason: Constipation Metoprolol Succinate (Toprol Xl (Beta Iraj)) 100 mg PO DAILY [facility] Last Admin: 06/18/18 10:10 Dose: Not Given Morphine Sulfate () 1 - 2 mg IV Q4H PRN PRN PRN Reason: MOD-SEVERE PAIN (4-10/10) Last Admin: 06/16/18 02:15 Dose: 2 mg Nutritional Formula (Lactose Free) (Glucerna Shake) 120 ml PO 4X/DAY [facility] Last Admin: 06/18/18 17:07 Dose: Not Given Ondansetron HCl (Zofran) 4 mg IV Q8H PRN PRN PRN Reason: NAUSEA Last Admin: 06/18/18 00:33 Dose: 4 mg Sodium Chloride () 5 - 15 ml IV UD PRN PRN Reason: SALINE FLUSH Last Admin: 06/18/18 06:01 Dose: 10 ml Zolpidem Tartrate (Ambien (Generic)) 5 mg PO QHS PRN PRN PRN Reason: INSOMNIA Medical Necessity - Tobacco Use Smoking Status: Never smoker Assessment/Plan All Active Problems (Last Updated 06/15/18 @ 22:25 by Jalil Arredondo MD) Hypertensive emergency (Acute) Chest pain (Acute) The patient is a 73 year old F with a significant history of hypertension; diabetes mellitus; and a leaky valve who presented with progressive worsening of shortness of breath for 2-3 weeks got the worst last 2-3 hours along with chest pain and found to have severely elevated blood pressure; radiographic evidence of bilateral pleural effusion; and troponin in the indeterminate range, consistent with hypertensive emergency and was admitted in the ICU. 1 hypertensive emergency: Systolic blood pressure was 190-210 in the ED currently blood pressure systolic is in the 150s. Heart rate 70-80/min. Blood pressure dropped to 150s/101 on 1 dose of labetalol 10 mg IV given in ED currently on oral medications losartan, Nitropaste and labetalol 10 mg IV as needed. EKG shows normal sinus rhythm with right bundle branch block, left posterior fascicular block at 75 bpm. No previous EKG in our system to compare with. Cardiac cath and 2D echo shows moderately severe MS with mild MR with mitral valve annular calcification and mild . Severe TR. Severe pulmonary hypertension was treated from left diastolic heart failure with preserved EF. Patient had SHARRON today and shows moderate MS. 2. Acute microcytic anemia mostly secondary to anticoagulants: Aspirin and heparin is already discontinued. Hemoglobin 7.5, dropped from 9.4, admitting hemoglobin. IV iron sucrose given. Ferritin 168, iron 25 low, TIBC 245. Iron saturation 10%. Occult stool test ordered Bilateral pleural effusion most probably secondary to CHF/hypertensive emergency: CT angiogram in the ER shows bilateral pleural effusions with interlobular septal thickening suggesting pulmonary edema. No PE/arterial dissection found. On Lasix as needed if the patient gets very short of breath but currently shortness of breath is better. 3. Atypical chest pain with intermittent troponin probably from hypertensive emergency and heart failure: [employer] evaluation. 4. Diabetes mellitus type 2: On Lantus and sliding scale Humalog insulin 5. DVT prophylaxis on heparin 500o subcutaneous twice daily Active Medications Acetaminophen (Tylenol) 650 mg PO Q6H PRN PRN PRN Reason: Mild Pain (1-3)/Temp > 100.7 F Aspirin (Ecotrin) 81 mg PO DAILY@0800 [facility] Atorvastatin Calcium (Lipitor) 80 mg PO QHS [facility] Last Admin: 06/15/18 23:23 Dose: 80 mg Dextrose (D50w Syringe) 0 gm IV X1 PRN; Protocol PRN Reason: Hypoglycemia Glipizide (Glucotrol) 5 mg PO DAILYCM [facility] Glucagon () 1 mg IM .X1 PRN PRN Reason: Hypoglycemia Insulin Glargine (Lantus (Bkc)) 25 units SC QHS [facility] Last Admin: 06/15/18 23:22 Dose: 25 units Insulin Human Lispro (Humalog Kwikpen (Bkc)) 0 unit SQ Q6 [facility]; Protocol Last Admin: 06/16/18 06:10 Dose: 2 units Labetalol HCl (Trandate) 10 mg IV Q4H PRN PRN PRN Reason: SBP > 160 Losartan Potassium (Cozaar) 100 mg PO DAILY [facility] Magnesium Hydroxide (Milk Of Magnesia) 30 ml PO DAILY PRN PRN Reason: Constipation Metoprolol Succinate (Toprol Xl (Beta Iraj)) 50 mg PO DAILY [facility] Morphine Sulfate () 1 - 2 mg IV Q4H PRN PRN PRN Reason: MOD-SEVERE PAIN (4-03/12) Last Admin: 06/16/18 02:15 Dose: 2 mg Nitroglycerin (Nitrobid) 1 inch TRANSDERM. Q6 [facility] Last Admin: 06/16/18 06:11 Dose: 1 inch Nutritional Formula (Lactose Free) (Glucerna Shake) 120 ml PO 4X/DAY [facility] Ondansetron HCl (Zofran) 4 mg IV Q8H PRN PRN PRN Reason: NAUSEA Sodium Chloride () 5 - 15 ml IV UD PRN PRN Reason: SALINE FLUSH Last Admin: 06/16/18 06:15 Dose: 10 ml Zolpidem Tartrate (Ambien (Generic)) 5 mg PO QHS PRN PRN PRN Reason: INSOMNIA Code Visit Inpatient E&M: 17471 Subs Hosp L3
--- NOTE | 2018-06-18 17:57 | PN_ITS ---
Patient Problems: Active and Suspected Problems (Last Updated 06/15/18 @ 22:25 by Jalil Arredondo MD) Hypertensive emergency (Acute) Chest pain (Acute) Subjective: Patient had SHARRON today. Discussed with Dr. bruno. Hemoglobin is low. No obvious external blood loss. Most probably secondary to heparin which she had initially. Vitals/I&O's: Vital Signs Temp Pulse Resp BP Pulse Ox 98.1 F 75 16 154/73 H 95 06/18/18 13:24 06/18/18 15:00 06/18/18 13:24 06/18/18 13:24 06/18/18 13:24 Oxygen Flow Rate (L/min) 2 Oxygen Delivery Method Nasal Cannula Weight: 254 lb 13.67 oz Body Mass Index (BMI) 45.1 Intake and Output for Last 24 Hours 06/16/18 06/17/18 06/18/18 23:59 23:59 23:59 Intake Total 689 / 689 825 / 825 0 / 0 Output Total 550 / 550 200 / 200 Balance 139 / 139 825 / 825 -200 / -200 General: Alert, Oriented x3, Cooperative HEENT: Atraumatic, PERRLA, EOMI, Normocephalic Neck: Supple, No JVD, Negative Carotid Bruits Lungs: Diminished, Rales - Occasional rales Cardiovascular: Regular rate, Regular Rhythm, Normal S1, Normal S2, Murmur Abdomen: Bowel Sounds Present, Soft, Non Tender, Non-Distended Extremities: Capillary Refill Less than 3 Seconds, Edema Skin: No rashes, No breakdown Musculoskeletal: No Tenderness to Palpation of Joints or Extremities Neurological: Cranial nerves II-XII grossly intact Psych/Mental Status: Normal Affect, Appropriate Laboratory Results 06/17/18 20:51: POC Glucose 213 H 06/18/18 03:48: Sodium 138, Potassium 4.0, Chloride 102, Carbon Dioxide 29.0, Anion Gap 7, BUN 13, Creatinine 0.69, Estim Creat Clear Calc 42.07, Est GFR (MDRD) Af Amer 107, Est GFR (MDRD) Non-Af 88, BUN/Creatinine Ratio 18.7, Glucose 199 H, Calcium 8.3 L 06/18/18 03:48: WBC 6.2, RBC 2.71 L, Hgb 7.5 L, Hct 25.1 L, MCV 92.6, MCH 27.7, MCHC 29.9 L, RDW 13.5, RDW Differential 44.4 H, Plt Count 428, MPV 9.3, Immature Gran % (Auto) 0.300, Neut % (Auto) 60.0, Lymph % (Auto) 24.7, [place] % (Auto) 9.3, Eos % (Auto) 5.2 H, Baso % (Auto) 0.5, Absolute Neuts (auto) 3.7, Absolute Lymphs (auto) 1.52, Total Counted Not Reportable 06/18/18 03:48: PT 14.5, INR 1.1, APTT 32.6 06/18/18 03:48: Iron 25 L, TIBC 245 L, Iron Saturation 10.2 L, Ferritin 168, Folate 23.90 06/18/18 07:04: POC Glucose 192 H 06/18/18 11:31: POC Glucose 177 H 06/18/18 16:18: POC Glucose 200 H Current Medications Acetaminophen (Tylenol) 650 mg PO Q6H PRN PRN PRN Reason: Mild Pain (1-3)/Temp > 100.7 F Atorvastatin Calcium (Lipitor) 80 mg PO QHS [facility] Last Admin: 06/17/18 20:58 Dose: 80 mg Dextrose (D50w Syringe) 0 gm IV X1 PRN; Protocol PRN Reason: Hypoglycemia Glipizide (Glucotrol) 5 mg PO DAILYCM [facility] Last Admin: 06/18/18 10:09 Dose: Not Given Glucagon () 1 mg IM .X1 PRN PRN Reason: Hypoglycemia Sodium Chloride () 1,000 mls @ 15 mls/hr IV .Q48H [facility] Last Admin: 06/18/18 11:36 Dose: 15 mls/hr Sodium Chloride () 1,000 mls @ 0 mls/hr IV .Q0M [facility] Insulin Glargine (Lantus (Bk)) 25 units SC QHS [facility] Last Admin: 06/17/18 20:59 Dose: 25 units Insulin Human Lispro (Humalog Kwikpen ([facility])) 0 unit SC ACHS [facility]; Protocol Last Admin: 06/18/18 17:07 Dose: 2 u Labetalol HCl (Trandate) 10 mg IV Q4H PRN PRN PRN Reason: SBP > 160 Last Admin: 06/18/18 06:01 Dose: 10 mg Losartan Potassium (Cozaar) 100 mg PO DAILY [facility] Last Admin: 06/18/18 10:10 Dose: Not Given Magnesium Hydroxide (Milk Of Magnesia) 30 ml PO DAILY PRN PRN Reason: Constipation Metoprolol Succinate (Toprol Xl (Beta Iraj)) 100 mg PO DAILY [facility] Last Admin: 06/18/18 10:10 Dose: Not Given Morphine Sulfate () 1 - 2 mg IV Q4H PRN PRN PRN Reason: MOD-SEVERE PAIN (4-10/10) Last Admin: 06/16/18 02:15 Dose: 2 mg Nutritional Formula (Lactose Free) (Glucerna Shake) 120 ml PO 4X/DAY [facility] Last Admin: 06/18/18 17:07 Dose: Not Given Ondansetron HCl (Zofran) 4 mg IV Q8H PRN PRN PRN Reason: NAUSEA Last Admin: 06/18/18 00:33 Dose: 4 mg Sodium Chloride () 5 - 15 ml IV UD PRN PRN Reason: SALINE FLUSH Last Admin: 06/18/18 06:01 Dose: 10 ml Zolpidem Tartrate (Ambien (Generic)) 5 mg PO QHS PRN PRN PRN Reason: INSOMNIA Medical Necessity - Tobacco Use Smoking Status: Never smoker Assessment/Plan All Active Problems (Last Updated 06/15/18 @ 22:25 by Jalil Arredondo MD) Hypertensive emergency (Acute) Chest pain (Acute) The patient is a 73 year old F with a significant history of hypertension; diabetes mellitus; and a leaky valve who presented with progressive worsening of shortness of breath for 2-3 weeks got the worst last 2-3 hours along with chest pain and found to have severely elevated blood pressure; radiographic evidence of bilateral pleural effusion; and troponin in the indeterminate range, consistent with hypertensive emergency and was admitted in the ICU. 1 hypertensive emergency: Systolic blood pressure was 190-210 in the ED currently blood pressure systolic is in the 150s. Heart rate 70-80/min. Blood pressure dropped to 150s/101 on 1 dose of labetalol 10 mg IV given in ED currently on oral medications losartan, Nitropaste and labetalol 10 mg IV as needed. EKG shows normal sinus rhythm with right bundle branch block, left posterior fascicular block at 75 bpm. No previous EKG in our system to compare with. Cardiac cath and 2D echo shows moderately severe MS with mild MR with mitral valve annular calcification and mild . Severe TR. Severe pulmonary hypertension was treated from left diastolic heart failure with preserved EF. Patient had SHARRON today and shows moderate MS. 2. Acute microcytic anemia mostly secondary to anticoagulants: Aspirin and heparin is already discontinued. Hemoglobin 7.5, dropped from 9.4, admitting hemoglobin. IV iron sucrose given. Ferritin 168, iron 25 low, TIBC 245. Iron saturation 10%. Occult stool test ordered Bilateral pleural effusion most probably secondary to CHF/hypertensive emergency: CT angiogram in the ER shows bilateral pleural effusions with interlobular septal thickening suggesting pulmonary edema. No PE/arterial dissection found. On Lasix as needed if the patient gets very short of breath but currently shortness of breath is better. 3. Atypical chest pain with intermittent troponin probably from hypertensive emergency and heart failure: Behavioral Health Assistant evaluation. 4. Diabetes mellitus type 2: On Lantus and sliding scale Humalog insulin 5. DVT prophylaxis on heparin 500o subcutaneous twice daily Active Medications Acetaminophen (Tylenol) 650 mg PO Q6H PRN PRN PRN Reason: Mild Pain (1-3)/Temp > 100.7 F Aspirin (Ecotrin) 81 mg PO DAILY@0800 [facility] Atorvastatin Calcium (Lipitor) 80 mg PO QHS [facility] Last Admin: 06/15/18 23:23 Dose: 80 mg Dextrose (D50w Syringe) 0 gm IV X1 PRN; Protocol PRN Reason: Hypoglycemia Glipizide (Glucotrol) 5 mg PO DAILYCM [facility] Glucagon () 1 mg IM .X1 PRN PRN Reason: Hypoglycemia Insulin Glargine (Lantus (Bkc)) 25 units SC QHS [facility] Last Admin: 06/15/18 23:22 Dose: 25 units Insulin Human Lispro (Humalog Kwikpen (Bkc)) 0 unit SQ Q6 [facility]; Protocol Last Admin: 06/16/18 06:10 Dose: 2 units Labetalol HCl (Trandate) 10 mg IV Q4H PRN PRN PRN Reason: SBP > 160 Losartan Potassium (Cozaar) 100 mg PO DAILY [facility] Magnesium Hydroxide (Milk Of Magnesia) 30 ml PO DAILY PRN PRN Reason: Constipation Metoprolol Succinate (Toprol Xl (Beta Iraj)) 50 mg PO DAILY [facility] Morphine Sulfate () 1 - 2 mg IV Q4H PRN PRN PRN Reason: MOD-SEVERE PAIN (4-03/12) Last Admin: 06/16/18 02:15 Dose: 2 mg Nitroglycerin (Nitrobid) 1 inch TRANSDERM. Q6 [facility] Last Admin: 06/16/18 06:11 Dose: 1 inch Nutritional Formula (Lactose Free) (Glucerna Shake) 120 ml PO 4X/DAY [facility] Ondansetron HCl (Zofran) 4 mg IV Q8H PRN PRN PRN Reason: NAUSEA Sodium Chloride () 5 - 15 ml IV UD PRN PRN Reason: SALINE FLUSH Last Admin: 06/16/18 06:15 Dose: 10 ml Zolpidem Tartrate (Ambien (Generic)) 5 mg PO QHS PRN PRN PRN Reason: INSOMNIA Code Visit Inpatient E&M: 67996 Subs Hosp L3
[2018-06-18] MEDS: Atorvastatin Calcium 80 MG Tablet PO (22:31)
[2018-06-18 23:21] LABS: Bedside Glucose 191 mg/dL (70-110)
[2018-06-19] VITALS (7 sets, daily range): BP systolic 131–191; BP diastolic 55–84; PULSE 67–79; RESP 16; TEMP 36.7–36.9; O2SAT 94–99
[2018-06-19] MEDS: Furosemide 40 MG/4 ML Vial IV ×2 (00:24→06:36)
[2018-06-19 06:39] LABS: Absolute Lymphocyte Count 1.48 X10^3/ul (0.83-4.51); Absolute Neutrophil Count 2.8 X10^3/uL (2.0-7.7); Basophil# 0.03 X10^3/uL; Basophil% 0.6 % (0-1); Eosinophil# 0.51 X10^3/uL; Eosinophils% 9.5 % (0-5); Hematocrit 26.3 % (37-47); Hemoglobin 7.9 g/dl (12.0-15.0); Lymphocyte # 1.48 X10^3/ul (4.0); Lymphocyte % 27.6 % (19-41); Mean Corpuscular Hgb 27.4 pg (27.0-32.0); Mean Corpuscular Volume 91.3 fL (81-99); Mean Platelet Vol. 8.8 fl (6.2-12.0); Monocyte# 0.57 X10^3/uL; Monocyte% 10.6 % (0-10); Neutrophil # 2.75 X10^3/uL (2.7-7.7); Neutrophil % 51.3 % (47-70); Platelet Count 431 K/mm3 (150-450); RBC Distribution Width CV 14.1 % (11.6-14.6); RBC Distribution Width SD 47.3 fl (35.1-43.9); Red Blood Count 2.88 M/mm3 (4.2-5.4); White Blood Count 5.4 K/mm3 (4.4-11.0)
[2018-06-19 06:40] LABS: POSITIVE COUNT NO; POSITIVE DIFFERENTIAL NO; POSITIVE MORPHOLOGY NO
[2018-06-19 06:45] LABS: Bedside Glucose 132 mg/dL (70-110)
[2018-06-19 06:52] LABS: Anion Gap 7 (5-15); BUN 10 mg/dL (7-18); Calcium,Total 8.6 mg/dL (8.5-10.1); Chloride 102 mmol/L (98-107); Creatinine, Serum 0.66 mg/dL (0.55-1.02); EST Glomerular Filtration Rate 93 mL/min (>60); Est Glom Filt Rate - Afr Amer 112 mL/min (>60); Estimated Creatinine Clearance 42.07 ml/min; Glucose 131 mg/dL (74-106); Potassium 3.8 mmol/L (3.5-5.1); Sodium Level 140 mmol/L (136-145)
[2018-06-19] MEDS: glipiZIDE 5 MG Tablet PO (08:09)
[2018-06-19 08:52] LABS: Vitamin B12 680 pg/mL (211-911)
[2018-06-19] MEDS: Metoprolol(XL)Succ 100 MG Tablet PO (09:59)
[2018-06-19] MEDS: Losartan Potassium 100 MG Tablet PO (10:00)
[2018-06-19] MEDS: Glucerna Shake 120 ML LIQUID PO (10:02)
--- NOTE | 2018-06-19 11:14 | DS.PCM_ITS ---
Discharge Date and Diagnosis Date of Admission: 06/15/18 Date of Discharge: 06/19/18 - Primary Discharge Diagnosis Active and Suspected Problems (Last Updated 06/15/18 @ 22:25 by Jalil Arredondo MD) Hypertensive emergency (Acute) Chest pain (Acute) Hospital Course and Treatment Summary of Care Provided: [] The patient is a 73 year old F with a significant history of hypertension; diabetes mellitus; and a leaky valve who presented with progressive worsening of shortness of breath for 2-3 weeks got the worst last 2-3 hours along with chest pain and found to have severely elevated blood pressure; radiographic evidence of bilateral pleural effusion; and troponin in the indeterminate range, consistent with hypertensive emergency and was admitted in the ICU. 1 hypertensive emergency: Systolic blood pressure was 190-210 in the ED currently blood pressure systolic is in the 150s. Heart rate 70-80/min. Blood pressure dropped to 150s/101 on 1 dose of labetalol 10 mg IV given in ED currently on oral medications losartan, Nitropaste and labetalol 10 mg IV as needed. EKG shows normal sinus rhythm with right bundle branch block, left posterior fascicular block at 75 bpm. No previous EKG in our system to compare with. Cardiac cath and 2D echo shows moderately severe MS with mild MR with mitral valve annular calcification and mild . Severe TR. Severe pulmonary hypertension was treated from left diastolic heart failure with preserved EF. Patient had SHARRON on 06/18/18 and shows moderate MS. There is no further inpatient workup needed. Patient is being discharged home on Lasix 40 mg twice daily. 2. Acute microcytic anemia mostly secondary to anticoagulants: Aspirin and heparin is already discontinued. Hemoglobin 7.5, dropped from 9.4, admitting hemoglobin. IV iron sucrose given. Ferritin 168, iron 25 low, TIBC 245. Iron saturation 10%. Occult stool test ordered but patient did not had stool collection. Patient is discharged on ferrous sulfate 325 mg twice daily. Bilateral pleural effusion most probably secondary to acute on chronic diastolic heart failure from valvular heart disease/hypertensive emergency: CT angiogram in the ER shows bilateral pleural effusions with interlobular septal thickening suggesting pulmonary edema. No PE/arterial dissection found. On Lasix as needed if the patient gets very short of breath but currently shortness of breath is better. Echo shows EF 65% with moderate concentric LVH 3. Atypical chest pain with intermittent troponin probably from hypertensive emergency and heart failure: Cable Splicer Apprentice evaluation. 4. Diabetes mellitus type 2: On Lantus and sliding scale Humalog insulin 5. DVT prophylaxis: Aspirin and heparin was discontinued on 06/18 after she had drop in hemoglobin. Discharge medication reconciliation done. Discharge follow-up instructions completed. Discharge process discussed with the patient by her and sons present in the room. All questions were answered to the patient's and family's satisfaction. Total time spent, exact 35 minutes on discharge meds reconciliation, examination, review of imaging and blood test and discussion with the patient on follow-up instructions. Subjective: Patient is not hypoxic, 95% on room air. Respiratory rate 16. Objective: General: Alert, Oriented x3, Cooperative HEENT: Atraumatic, PERRLA, EOMI, Normocephalic Neck: Supple, No JVD, Negative Carotid Bruits Lungs: Diminished, Rales - Occasional rales Cardiovascular: Regular rate, Regular Rhythm, Normal S1, Normal S2, systolic murmur present over left lower sternal border. Abdomen: Bowel Sounds Present, Soft, Non Tender, Non-Distended Extremities: Capillary Refill Less than 3 Seconds, bilateral ankle edema Skin: No rashes, No breakdown Musculoskeletal: No Tenderness to Palpation of Joints or Extremities Neurological: Cranial nerves II-XII grossly intact Psych/Mental Status: Normal Affect, Appropriate - Physical Exam Vital Signs Temp Pulse Resp BP Pulse Ox 98.1 F 70 16 160/55 H 98 06/19/18 05:15 06/19/18 09:59 06/19/18 05:15 06/19/18 05:15 06/19/18 07:30 Oxygen Flow Rate (L/min) 2 Oxygen Delivery Method Nasal Cannula Weight: 254 lb 13.67 oz Body Mass Index (BMI) 45.1 Intake and Output for Last 24 Hours 06/17/18 06/18/18 06/19/18 23:59 23:59 23:59 Intake Total 825 / 825 400 / 400 200 / 200 Output Total 200 / 200 1200 / 1200 Balance 825 / 825 200 / 200 -1000 / -1000 Laboratory Tests Past 24 Hrs 06/18/18 06/19/18 06/19/18 03:48 06:20 06:20 WBC 5.4 RBC 2.88 L Hgb 7.9 L Hct 26.3 L MCV 91.3 MCH 27.4 MCHC 30.0 L RDW 14.1 RDW Differential 47.3 H Plt Count 431 MPV 8.8 Immature Gran % (Auto) 0.400 Neut % (Auto) 51.3 Lymph % (Auto) 27.6 [place] % (Auto) 10.6 H Eos % (Auto) 9.5 H Baso % (Auto) 0.6 Absolute Neuts (auto) 2.8 Absolute Lymphs (auto) 1.48 Total Counted Not Reportable Sodium Potassium Chloride Carbon Dioxide Anion Gap BUN Creatinine Estim Creat Clear Calc Est GFR (MDRD) Af Amer Est GFR (MDRD) Non-Af BUN/Creatinine Ratio Glucose Calcium Iron 25 L TIBC 245 L Iron Saturation 10.2 L Ferritin 168 Vitamin B12 680 Folate 23.90 06/19/18 06:20 WBC RBC Hgb Hct MCV MCH MCHC RDW RDW Differential Plt Count MPV Immature Gran % (Auto) Neut % (Auto) Lymph % (Auto) [place] % (Auto) Eos % (Auto) Baso % (Auto) Absolute Neuts (auto) Absolute Lymphs (auto) Total Counted Sodium 140 Potassium 3.8 Chloride 102 Carbon Dioxide 31.0 Anion Gap 7 BUN 10 Creatinine 0.66 Estim Creat Clear Calc 42.07 Est GFR (MDRD) Af Amer 112 Est GFR (MDRD) Non-Af 93 BUN/Creatinine Ratio 15.0 Glucose 131 H Calcium 8.6 Iron TIBC Iron Saturation Ferritin Vitamin B12 Folate POC Glucose 06/19/18 06/18/18 06/18/18 06:31 22:38 16:18 POC Glucose 132 H 191 H 200 H 06/18/18 11:31 POC Glucose 177 H Discharge Activity: May Not Drive Call your doctor if you observe: Fever of 101 or Higher, Shortness of breath, Swelling in the ankles, Chest pain, Increased palpitations (irregular heartbeat) Home Medications: Medications to take at Discharge Glipizide 5 mg PO DAILY 06/15/18 Losartan Potassium 100 mg PO DAILY 06/15/18 Ferrous Sulfate [Iron] 325 mg PO BID #60 tablet 06/19/18 Furosemide [Lasix] 40 mg PO BID #60 tablet 06/19/18 Insulin Detemir [Levemir] 35 unit SQ DAILY #0 06/19/18 Metoprolol(XL)Succ [Toprol Xl (Beta Iraj)] 100 mg PO DAILY #30 tablet 06/19/18 Potassium Chloride [K-Dur] 20 meq PO DAILY #30 tablet 06/19/18 Following Prescrptions Were Given to Patient: Metoprolol(XL)Succ [Toprol Xl (Beta Iraj)] 100 mg PO DAILY #30 tablet Potassium Chloride [K-Dur] 20 meq PO DAILY #30 tablet Ferrous Sulfate [Iron] 325 mg PO BID #60 tablet Furosemide [Lasix] 40 mg PO BID #60 tablet Other Amb Orders: Basic Metabolic Profile (BMP) Time Frame: 02/24/18, Location: Laboratory Primary Care Physician: Maxi Coats MD [Primary Care Provider] - Please follow up with your Primary Care Physician in: in 1-week to check BMP Please Follow Up With: Edwin Zaragoza MD When: IN 3-4 WEEKS Medical Necessity - Tobacco Use Smoking Status: Never smoker Meaningful Use Info Meaningful Use Diagnoses (Choose all that apply): CHF - CHF SHAYLA/ARB ordered at discharge?: Yes Documented LVEF (%): 65 Code Visit Inpatient E&M: 53746 Disch Hosp
--- NOTE | 2018-06-19 11:14 | DCINST_ITS ---
- Discharge Diagnoses Current Active Problems: Current Active and Chronic Problems (Last Updated 06/15/18 @ 22:25 by Jalil Arredondo MD) Hypertensive emergency (Acute) Chest pain (Acute) You will use the following diet at home:: Calorie/Carbohydrate Controlled (specify 1200, 1400, etc) - 1800 ADA diet, Cardiac Your food should be the consistency of: Regular Discharge Activity: May Not Drive Call your doctor if you observe: Fever of 101 or Higher, Shortness of breath, Swelling in the ankles, Chest pain, Increased palpitations (irregular heartbeat) Allergies/Adverse Reactions: Allergies oxycodone Adverse Reaction (Verified 06/15/18 18:54) Nausea Medications to take at Discharge Glipizide 5 mg PO DAILY 06/15/18 Losartan Potassium 100 mg PO DAILY 06/15/18 Ferrous Sulfate [Iron] 325 mg PO BID #60 tablet 06/19/18 Furosemide [Lasix] 40 mg PO BID #60 tablet 06/19/18 Insulin Detemir [Levemir] 35 unit SQ DAILY #0 06/19/18 Metoprolol(XL)Succ [Toprol Xl (Beta Iraj)] 100 mg PO DAILY #30 tablet 06/19/18 Potassium Chloride [K-Dur] 20 meq PO DAILY #30 tablet 06/19/18 The following prescriptions were given: Metoprolol(XL)Succ [Toprol Xl (Beta Iraj)] 100 mg PO DAILY #30 tablet Potassium Chloride [K-Dur] 20 meq PO DAILY #30 tablet Ferrous Sulfate [Iron] 325 mg PO BID #60 tablet Furosemide [Lasix] 40 mg PO BID #60 tablet Orders to be completed after discharge: Basic Metabolic Profile (BMP) Time Frame: 02/24/18, Location: Laboratory Primary Care Physician: Maxi Coats MD [Primary Care Provider] - Please follow up with your Primary Care Physician in: in 1-week to check BMP Test Results: Test results from this visit will be discussed in further detail at your follow- up appointment, if applicable. Please Follow Up With: Edwin Zaragoza MD When: IN 3-4 WEEKS
[2018-06-19 12:55] LABS: Bedside Glucose 115 mg/dL (70-110)
--- NOTE | 2018-06-19 13:16 | CASEMGMT ---
This RN CM to room to discuss discharge plan with pt/family at this time. Pt states that she already has [facility] set up through an agency in [facility] but she is unsure of name of company. Per family, they have been in contact with therapist and they are aware of admission. Pt is not active with [employer], or [employer]. This RN CM is unsure which company but will place resumption of care order if company calls in and needs paperwork printed and faxed at a later time. Walking pulse ox done and pt did not qualify per Lacie SENA. Transport home organized by tameka Padilla, at this time. Tres SENA CM
== END 2018-06-19 13:09 | disposition home or self-care (01) | DRG 286 ==
LOC: ED 21:51 → ICU 06-16 07:25 → PCU 06-17 11:05
PROVIDERS: Internal Medicine Cardiovascular Disease; Admitting Provider Hospitalist; Emergency Provider Emergency Medicine; Family Provider Family Medicine; PCP Family Medicine; Referring Provider Hospitalist; Visit Provider Internal Medicine
DX: I16.1 Hypertensive emergency (principal); I50.33 Acute on chronic diastolic (congestive) heart failure; I24.8 Other forms of acute ischemic heart disease; J91.8 Pleural effusion in other conditions classified elsewhere; I45.2 Bifascicular block; I11.0 Hypertensive heart disease with heart failure; I27.20 Pulmonary hypertension, unspecified; I08.3 Combined rheumatic disorders of mitral, aortic and tricuspid valves; E11.9 Type 2 diabetes mellitus without complications; R07.89 Other chest pain; D50.9 Iron deficiency anemia, unspecified; Z96.653 Presence of artificial knee joint, bilateral; Z79.4 Long term (current) use of insulin
CPT/HCPCS: 36415; 71275; 80048; 80061; 82607; 82728; 82746; 82803; 82962; 83540; 83550; 84484; 85025; 85610; 85730; 93005; 93306; 93312; 93320; 93325; 93460; 97162; 97165; 97530; 99285; C1760; J1756; J7030; J7040; Q9957; Q9967; A4216; C1751; C1894; J1940; J2405

== ENCOUNTER → 2018-09-18 | Outpatient (CLI) | payer OTHER, SELFPAY ==
[2018-07-16 08:46] VITALS: BMI 42.1
--- NOTE | 2018-09-18 09:25 | CDU_ITS ---
Reason For Study: left carotid bruit Rt. Velocities/BP Lt. Velocities/BP Prox CCA 82.5/18.6 cm/sec. Prox CCA 63.0/20.1 cm/sec. Mid CCA 74.7/17.3 cm/sec. Mid CCA 74.0/14.6 cm/sec. Dist CCA 51.3/12.1 cm/sec. Dist CCA 60.8/13.5 cm/sec. Prox ICA 84.9/22.3 cm/sec. Prox ICA 315.2/96.9 cm/sec. Mid ICA 61.9/17.9 cm/sec. Mid ICA 188.5/33.1 cm/sec. Dist ICA 108/25.6 cm/sec. Dist ICA 91.9/26.1 cm/sec. Rt. ICA/CCA = 1.4. Lt. ICA/CCA = 4.3. Prox ECA 78.6/5.6 cm/sec. Prox ECA 117.4/4.2 cm/sec. Rt. Vert. 70.7/17.9 cm/sec. Lt. Vert. 45.4/12.4 cm/sec. Right Extracranial There is intimal thickening but no significant atherosclerotic plaque noted in the right common carotid artery. There is heterogeneous, irregular atherosclerotic plaque noted in the right internal carotid artery. There is heterogeneous, irregular atherosclerotic plaque noted in the right external carotid artery. Antegrade flow is noted in the right vertebral artery. Left Extracranial There is homogeneous, smooth atherosclerotic plaque noted in the left common carotid artery. There is heterogeneous, irregular atherosclerotic plaque noted in the left internal carotid artery. The atherosclerotic plaque causes acoustic shadowing. There is heterogeneous, irregular atherosclerotic plaque noted in the left external carotid artery. Antegrade flow is noted in the left vertebral artery. Procedure Carotid Duplex [id number]. The exam was diagnostic. Exam performed in department. Prelim given to Karthik Shine CNP. Interpretation Summary Calcific plague right mid and distal common carotid. Calcific plague at the proximal right internal and external carotids with <50% stenosis of each. Extensive irregular calcific plague at the proximal left internal and external carotid arteries. >70% stenosis left internal carotid, bordering upon >80% stenosis <50% stenosis left external carotid Patent and antegrade vertebrals bilaterally Ordering Physician: KARTHIK SHINE Performed By: Sarthak Arango RVT
--- NOTE | 2018-09-18 15:00 | PFTCOMP ---
COMPLETE PULMONARY FUNCTION TEST INTERPRETATION Brief HPI: Patient is a 73 year old female, currently under the care of Diane Cunningham, who presents to [facility] for complete pulmonary function tests secondary to diagnosis of dyspnea. Respiratory therapist reports good effort and reproducible results. Interpretation: Forced expiration spirometry shows no large airways obstructive ventilatory defect with an FEV1 of 78% predicted. Bronchodilators were not used. Spirograms are of good quality and plateau normally. The respiratory flow volume loop shows a normal pattern. Lung volumes by body plethysmography show a decreased total lung capacity at 3.35 L, 73% predicted. All other lung volumes are reduced symmetrically. Diffusion capacity by carbon monoxide is reduced at 62% predicted. The airway resistance is normal. No previous pulmonary function tests were available for review. Impression: Mild restrictive ventilatory defect with symmetric reduction in diffusion capacity in a pattern consistent with possible interstitial lung disease.
--- NOTE | 2018-09-18 15:04 | PFTCOMP_ITS ---
COMPLETE PULMONARY FUNCTION TEST INTERPRETATION Brief HPI: Patient is a 73 year old female, currently under the care of Diane Cunningham, who presents to [facility] for complete pulmonary function tests secondary to diagnosis of dyspnea. Respiratory therapist reports good effort and reproducible results. Interpretation: Forced expiration spirometry shows no large airways obstructive ventilatory defect with an FEV1 of 78% predicted. Bronchodilators were not used. Spirograms are of good quality and plateau normally. The respiratory flow volume loop shows a normal pattern. Lung volumes by body plethysmography show a decreased total lung capacity at 3.35 L, 73% predicted. All other lung volumes are reduced symmetrically. Diffusion capacity by carbon monoxide is reduced at 62% predicted. The airway resistance is normal. No previous pulmonary function tests were available for review. Impression: Mild restrictive ventilatory defect with symmetric reduction in diffusion capacity in a pattern consistent with possible interstitial lung disease.
== END | disposition home or self-care (01) ==
LOC: PSN 08:07
PROVIDERS: Family Provider Family Medicine; PCP Family Medicine
DX: R09.89 Other specified symptoms and signs involving the circulatory and respiratory systems (principal); I34.2 Nonrheumatic mitral (valve) stenosis; R06.00 Dyspnea, unspecified
CPT/HCPCS: 93880; 94010; 94726; 94729

== ENCOUNTER 2018-11-22 00:32 | Inpatient (IN) | payer OTHER, SELFPAY ==
[2018-07-16 08:46] VITALS: BMI 42.1
[2018-11-22] VITALS (14 sets, daily range): BP systolic 125–141; BP diastolic 51–80; PULSE 60–100; RESP 16–27; TEMP 36.4–37.1; O2SAT 92–99; BMI 50.3; BMI 42.1; BMI 42.2
[2018-11-22] MEDS: Aspirin 81 MG TAB.CHEW 324 MG PO (01:05)
[2018-11-22] MEDS: Nitroglycerin SL (ED/IMG/CATH) 0.4 MG TABLET SUBLINGUAL ×2 (01:07→01:13)
--- NOTE | 2018-11-22 01:13 | EKG12_ITS ---
Test Reason : Blood Pressure : / mmHG Vent. Rate : 093 BPM Atrial Rate : 090 BPM P-R Int : 000 ms QRS Dur : 164 ms QT Int : 478 ms P-R-T Axes : 000 -80 099 degrees QTc Int : 594 ms Ventricular-paced rhythm Abnormal ECG When compared with ECG of 22-NOV-2018 00:25, MANUAL COMPARISON REQUIRED, DATA IS UNCONFIRMED Confirmed by SWATI SMITH, SUSHANT ([id number]), editor in chief newspaper ERASMO KNIGHT ([id number]) on 11/25/2018 8:03:34 AM Referred By: JYOTSNA Confirmed By:SUSHANT LONGORIA MD
--- NOTE | 2018-11-22 01:13 | RAD_ITS ---
STUDY: X-RAY CHEST REASON FOR EXAM: Female, 73 years old. Shortness of breath TECHNIQUE: Single AP portable view of the chest. COMPARISON: June 15, 2018 FINDINGS: There is a persistent focal opacity in the right lower lobe. There is persistent trace blunting of the left costophrenic angle. Interstitial markings are increased centrally. Sternal cerclage wires are present from a prior sternotomy. Normal mediastinum and colleen. Normal visualized pulmonary arteries. There is atherosclerotic calcification of the aortic arch with tortuosity. There are diffuse degenerative changes of the visualized thoracic spine. Normal visualized ribs, clavicles, and shoulders. There is no demonstrated abnormality of the visualized soft tissue structures of the upper abdomen. RAD/Chest 1 View (Portable) IMPRESSION: Findings are consistent with either recurrent or persistent bilateral effusions atelectasis central edema and or atelectasis. Pacemaker status post sternotomy. Electronically Signed: Lissa Domingo MD at 1:42 EDT Tel , Service support ,
[2018-11-22 01:32] LABS: Absolute Lymphocyte Count 1.16 X10^3/ul (0.83-4.51); Absolute Neutrophil Count 6.6 X10^3/uL (2.0-7.7); Basophil# 0.03 X10^3/uL; Basophil% 0.3 % (0-1); Eosinophil# 0.42 X10^3/uL; Eosinophils% 4.7 % (0-5); Hematocrit 27.1 % (37-47); Hemoglobin 8.3 g/dl (12.0-15.0); Lymphocyte # 1.16 X10^3/ul (4.0); Lymphocyte % 12.9 % (19-41); Mean Corp Hgb Conc 30.6 g/gl (32-36); Mean Corpuscular Hgb 27.9 pg (27.0-32.0); Mean Corpuscular Volume 90.9 fL (81-99); Mean Platelet Vol. 9.7 fl (6.2-12.0); Monocyte# 0.79 X10^3/uL; Monocyte% 8.8 % (0-10); Neutrophil # 6.55 X10^3/uL (2.7-7.7); Platelet Count 311 K/mm3 (150-450); RBC Distribution Width CV 15.6 % (11.6-14.6); RBC Distribution Width SD 49.3 fl (35.1-43.9); Red Blood Count 2.98 M/mm3 (4.2-5.4)
[2018-11-22 01:35] LABS: POSITIVE COUNT NO; POSITIVE DIFFERENTIAL NO; POSITIVE MORPHOLOGY NO
[2018-11-22 01:54] LABS: Anion Gap 7 (5-15); BUN 58 mg/dL (7-18); BUN/Creat Ratio 57.4 RATIO (10-20); Calcium,Total 8.4 mg/dL (8.5-10.1); Chloride 90 mmol/L (98-107); Creatinine, Serum 1.01 mg/dL (0.55-1.02); EST Glomerular Filtration Rate 57 mL/min (>60); Est Glom Filt Rate - Afr Amer 69 mL/min (>60); Estimated Creatinine Clearance 39.82 ml/min; Glucose 188 mg/dL (74-106); Sodium Level 126 mmol/L (136-145)
[2018-11-22 02:08] LABS: BNP,B-Type NATRIURETIC PEPTIDE 566.1 pg/mL (0-100)
--- NOTE | 2018-11-22 02:23 | ED.VISSUMM ---
- ER Visit Summary Date of Service: 11/22/18 Chief Complaint: Shortness of breath History of Present Illness: The patient is a 73 F who presents with shortness of breath for the past 3 weeks. She had a mitral valve replacement on November 03. She has been somewhat short of breath ever since that time but it acutely worsened tonight. She also complains of intermittent nausea and vomiting for couple of days. She has developed leg edema. She reports nonproductive cough. She does complain of mild chest tightness. She does have a history of congestive heart failure and is on Lasix twice daily. Physical Examination: Afebrile respiratory rate 27 pulse ox 95% on room air Tachypneic but I do not appreciate rales or wheezing Heart regular rate and rhythm Abdomen soft 2+ pitting lower extremity edema, symmetric Test Results: EKG shows paced rhythm at a rate of 78. Chest x-ray shows bilateral effusions and central edema. Labs notable for hemoglobin 8.3, sodium 126, BUN 58, BNP 566, troponin 0 0.076. INR pending. Emergency Department Course and Treatment: Patient does appear to have a acute exacerbation of CHF. She was given IV Lasix. She was discussed with the hospitalist and admitted. Treatment Plan: [] Disposition: Admit Impression: CHF exacerbation Hyponatremia This note was generated with [employer] dictation software. It may contain incorrect words, spelling, and punctuation that were not noted in review of the chart prior to signing ED Disposition - Plan for ED Patient: Referrals: Maxi Coats MD [Primary Care Provider] -
[2018-11-22 02:50] LABS: International Normalized Ratio 1.9; Prothrombin Time (Protime)PT. 21.9 SECONDS (11.7-14.9)
--- NOTE | 2018-11-22 03:12 | PCM.HP.STD ---
Problem List (1) Acute exacerbation of congestive heart failure Status: Chronic History of Present Illness Date of Admission: 11/22/18 Chief Complaint: shortness of breath The patient is a 73 year old F with a significant history of heart failure with preserved heart failure; and prosthetic mitral valve replaced replaced on November 03 2018; and mitral valve replacement on about November 04 2018 who presented to the emergency department with shortness of breath that started after replacement of her mitral valve and worsened on the night before her presentation. Associated with her symptoms is a dry cough and chest tightness. Also she reports nausea without vomiting. Further, she has ongoing two-pillow orthopnea; and paroxysmal nocturnal dyspnea as well as bilateral leg swelling. 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) I45.2 Bilateral pleural effusion (Resolved) J90 Secondary pulmonary arterial hypertension (Resolved) I27.21 Non-rheumatic tricuspid valve insufficiency (Resolved) I36.1 Non-rheumatic mitral valve stenosis (Resolved) I34.2 Non-rheumatic aortic stenosis (Resolved) I35.0 Acute diastolic (congestive) heart failure (Resolved) I50.31 Essential (primary) hypertension (Resolved) I10 Microcytic anemia D50.9 Obesity E66.9 Type 2 diabetes mellitus E11.9 Allergies metformin Adverse Reaction (Verified 11/22/18 00:33) Nausea oxycodone Adverse Reaction (Verified 11/22/18 00:33) Nausea Home Medications: Ambulatory Orders Medication Instructions Recorded Glipizide 5 mg PO DAILY 06/15/18 Ferrous Sulfate [Iron] 325 mg PO BID #60 tab 06/19/18 Insulin Detemir [Levemir] 35 unit SQ DAILY #0 06/19/18 furosemide 40 mg tablet 40 mg PO BID #180 tab 07/16/18 potassium chloride ER 20 mEq 20 meq PO DAILY #90 tab 07/16/18 tablet,extended release(part/cryst) aspirin 81 mg tablet,delayed 81 mg PO DAILY 11/21/18 release warfarin 2.5 mg tablet 2.5 mg PO DAILY 11/21/18 Surgical History: Surgical History (Last Reviewed 11/22/18 @ 03:41 by Jalil Arredondo MD) S/P mitral valve replacement with bioprosthetic valve (Acute) Z95.3 History of lumbar fusion Z98.1 History of right and left heart catheterization Onset Date: 06/16/18 Z98.890 History of total knee arthroplasty Z96.659 Surgical History: total knee arthroplasty - Bilateral; last one was done on left knee on June 02, 2018., - - Lower back surgery with disc fusion with plate and screw. Lives: Spouse/ Significant Other Smoking Status: Never smoker Alcohol: None - *Family History Maternal Family History: Family History (Last Reviewed 11/22/18 @ 03:41 by Jalil Arredondo MD) Sister Hypertension Father FH: CABG (coronary artery bypass surgery) Heart valve disease Review of Systems Constitutional: Reports: Fatigue. Denies: Chills, Fever HEENT: Denies: Head Aches, Sinus Congestion, Sinus Drainage Cardiovascular: Reports: Edema - Bilateral legs, Orthopnea, Paroxysmal Noc. Dyspnea. Denies: Chest Pain, Palpitations Respiratory: Reports: Cough, Shortness of Breath Gastrointestinal: Reports: Nausea, Vomiting - Patient vomited a day before presentation. Denies: Abdominal Pain Genitourinary: Denies: Dysuria Musculoskeletal: Denies: Joint Pain, Joint Tenderness Skin: Denies: Rash, Wounds Neurological: Denies: Numbness, Tingling, Focal weakness Psychiatric: Denies: Anxiety, Depression, Homicidal Ideations, Suicidal Ideations Hematologic/ Lymphatic: Denies: Easy Bruising, Easy Bleeding VTE Information - Inpt Only VTE Present on Admission: No VTE Mechan Device Prophylaxis: SCD's VTE Pharm Prophylaxis ordered?: No - Physical Exam General: Alert, Oriented x3, Cooperative HEENT: Atraumatic, PERRLA, EOMI, Normocephalic Neck: Supple, No JVD, Negative Carotid Bruits Lungs: Clear to auscultation, Normal air movement, Tachypneic Cardiovascular: No murmurs Abdomen: Bowel Sounds Present, Soft, Non Tender, Obese Extremities: Capillary Refill Less than 3 Seconds, Edema - Bilateral legs Skin: No rashes, No breakdown Musculoskeletal: No Tenderness to Palpation of Joints or Extremities Neurological: Cranial nerves II-XII grossly intact Psych/Mental Status: Normal Affect, Appropriate Vital Signs Temp Pulse Resp BP Pulse Ox 98.7 F 94 27 H 125/61 H 96 11/22/18 00:33 11/22/18 02:00 11/22/18 02:00 11/22/18 02:00 11/22/18 02:00 Oxygen Flow Rate (L/min) 2 Oxygen Delivery Method Nasal Cannula Weight: 124.9 kg Body Mass Index (BMI) 50.3 Laboratory Tests Past 24 Hrs 11/22/18 11/22/18 11/22/18 01:20 01:20 01:20 WBC 9.0 RBC 2.98 L Hgb 8.3 L Hct 27.1 L MCV 90.9 MCH 27.9 MCHC 30.6 L RDW 15.6 H RDW Differential 49.3 H Plt Count 311 MPV 9.7 Immature Gran % (Auto) 0.300 Neut % (Auto) 73.0 H Lymph % (Auto) 12.9 L [place] % (Auto) 8.8 Eos % (Auto) 4.7 Baso % (Auto) 0.3 Absolute Neuts (auto) 6.6 Absolute Lymphs (auto) 1.16 Total Counted Not Reportable PT INR Sodium 126 L Potassium 3.0 L Chloride 90 L Carbon Dioxide 29.0 Anion Gap 7 BUN 58 H Creatinine 1.01 Estim Creat Clear Calc 39.82 Est GFR (MDRD) Af Amer 69 Est GFR (MDRD) Non-Af 57 L BUN/Creatinine Ratio 57.4 H Glucose 188 H Calcium 8.4 L Troponin I 0.076 H B-Natriuretic Peptide 566.1 H 11/22/18 02:35 WBC RBC Hgb Hct MCV MCH MCHC RDW RDW Differential Plt Count MPV Immature Gran % (Auto) Neut % (Auto) Lymph % (Auto) [place] % (Auto) Eos % (Auto) Baso % (Auto) Absolute Neuts (auto) Absolute Lymphs (auto) Total Counted PT 21.9 H INR 1.9 Sodium Potassium Chloride Carbon Dioxide Anion Gap BUN Creatinine Estim Creat Clear Calc Est GFR (MDRD) Af Amer Est GFR (MDRD) Non-Af BUN/Creatinine Ratio Glucose Calcium Troponin I B-Natriuretic Peptide Assessment/Plan All Active Problems (Last Updated 10/16/18 @ 17:18 by Lety London) S/P mitral valve replacement with bioprosthetic valve (Acute) Bilateral pleural effusion (Resolved) Secondary pulmonary arterial hypertension (Resolved) Non-rheumatic tricuspid valve insufficiency (Resolved) Non-rheumatic mitral valve stenosis (Resolved) Non-rheumatic aortic stenosis (Resolved) Acute diastolic (congestive) heart failure (Resolved) Essential (primary) hypertension (Resolved) Chest pain (Resolved) Hypertensive emergency (Resolved) The patient is a 73 year old F with a significant history of heart failure with preserved heart failure; and prosthetic mitral valve replaced replaced on November 03 2018; and mitral valve replacement on about November 04 2018 who presented to the emergency department with shortness of breath that started after replacement of her mitral valve and worsened on the night before her presentation; and also with dry cough; chest tightness; nausea without vomiting; two-pillow orthopnea; paroxysmal nocturnal dyspnea as well as bilateral leg swelling consistent with acute exacerbation of underlying heart failure with preserved ejection fraction with differential diagnosis as mitral valve disease.. Acute Exacerbation of heart failure with preserved ejection fraction Admitted to a monitored bed on PCU Weight on admission to the floor; and then daily Strict I&O's CXR showed findings consistent with either recurrence or persistent bilateral effusions/ atelectasis, central edema and/or atelectasis. Chest x-ray was independently reviewed I agree with radiologist interpretation. EKG independently reviewed confirms ventricular paced rhythm. Emergency department labs reviewed showed hypokalemia of 3.0 Old records reviewed: Transesophageal echocardiogram on 06/18/2018: Among other findings showed ejection fraction of 60%. BNP was 566.1 Diuresis: Patient is on home Lasix 40 mg twice daily. On presentation she received Lasix 40 mg IV at the ED. Although she recently had an echocardiogram due to her and recent mitral valve replacement and pacemaker replacement will order another echocardiogram. Monitor electrolytes and renal function Trend blood pressure Titrate diuretics with blood pressure and kidney function. Nasir wrap to bilateral lower extremities We will obtain records from [facility], [place], operated by [facility]. Patient is also familiar with our product support manager group. Will consult cardiology. Hypokalemia Replaced Schedule potassium. Trend BMP. Mitral valve regurgitation status post mitral valve replacement. We will do an echocardiogram. Replaced mitral valve is from pig. INR was 1.9. Of note patient recently had valve replaced so she is on Coumadin. Coumadin dose escalated. Trend INR. MD to dose Coumadin per INR. Diabetes mellitus: On presentation her blood glucose was slightly above goal. Glipizide continued. Would slightly decrease dose of Levemir. Accu-Chek QA [facility] with low-dose correction scale insulin ordered. DVT Prophylaxis: SCD ordered since patient INR is not therapeutic. Coumadin continued. Code Visit Inpatient E&M: 66570 Init Hosp L3
[2018-11-22] MEDS: Ondansetron 4 MG/2 ML Vial IV (03:13)
[2018-11-22] MEDS: Furosemide 40 MG/4 ML Vial IV ×3 (03:13→17:12)
--- NOTE | 2018-11-22 03:34 | ECHOD_ITS ---
Reason For Study: Dyspnea/SOB Procedure This was a 2D Doppler, Color Flow transthoracic echocardiogram. The study was technically difficult. Exam performed portable in patient room. Left Ventricle Normal LV size. Moderate concentric left ventricular hypertrophy. Left ventricular systolic function is normal. The estimated ejection fraction is 65 %. Paced septal motion. E/E' ratio is 24. Right Ventricle The right ventricle is not well visualized. Atria The left atrium is severely enlarged. The right atrium is mildly enlarged. Mitral Valve Mean transmitral valve gradient 15.3 mmHg. Bioprosthetic mitral valve. The prosthetic mitral valve is not well visualized. prosthesis not well visulaized due to heavy [place] Ca2+. Tricuspid Valve Mild to moderate (1-2+) tricuspid valve insufficiency. Aortic Valve Trisinus/trileaflet aortic valve. Moderate diffuse aortic valve thickening. Mild aortic stenosis. Mean aortic valve gradient 15.9 mmHg. Pulmonic Valve The pulmonic valve is not well visualized. Mild (1+) pulmonic valve insufficiency. Great Vessels Normal ascending aorta. The inferior vena cava is dilated. and does not collapse. Pericardium/Pleural Small pericardial effusion. MMode/2D Measurements & Calculations LVIDd: 3.7 cm IVSd: 1.9 cm LVOT diam: 1.9 cm LVIDs: 2.6 cm LVPWd: 1.4 cm LVOT area: 3.0 cm2 RVDd: 4.1 cm FS: 29.4 % Ao root diam: 3.2 cm LAV(MOD-bp): 116.0 ml LA A4 area: 31.3 cm2 LAV(MOD-bp) Indexed: 53.0 ml/m2 LAV(MOD-sp2): 105.6 ml LAV(MOD-sp4): 110.3 ml LA dimension(2D): 4.8 cm RA A4 area: 16.3 cm2 Time Measurements MV dec time: 0.08 sec Doppler Measurements & Calculations MV E max kaleb: 228.0 cm/sec Lat Peak E' Kaleb: 9.2 cm/sec Med Peak E' Kaleb: 8.1 cm/sec E/E' lat: 24.7 E/E' med: 28.3 MV V2 max: 311.6 cm/sec MV P1/2t max kaleb: 304.3 cm/sec Ao V2 max: 261.9 cm/sec MV max P.8 mmHg MV P1/2t: 61.1 msec Ao max P.5 mmHg MV V2 mean: 174.7 cm/sec MV dec slope: 1458 cm/sec2 Ao V2 mean: 190.1 cm/sec MV mean P.3 mmHg Ao mean P.9 mmHg MV V2 VTI: 54.6 cm MVA(P1/2t): 3.6 cm2 Ao V2 VTI: 46.1 cm MVA(VTI): 0.94 cm2 LENA(I,D): 1.1 cm2 LENA(V,D): 1.2 cm2 LV V1 max: 105.2 cm/sec SV(LVOT): 51.5 ml PA V2 max: 124.2 cm/sec LV V1 max P.4 mmHg LV V1 mean P.4 mmHg LV V1 mean: 74.7 cm/sec LV V1 VTI: 17.4 cm TR max kaleb: 299.1 cm/sec TR max P.8 mmHg Interpretation Summary Moderate concentric left ventricular hypertrophy. The estimated ejection fraction is 65 %. E/E' ratio is 24 The left atrium is severely enlarged. Bioprosthetic mitral valve. The prosthetic mitral valve is not well visualized. prosthesis not well visulaized due to heavy [place] Ca2+ Mild to moderate (1-2+) tricuspid valve insufficiency. Mean transmitral valve gradient 15.3 mmHg. Mild aortic stenosis. Mean aortic valve gradient 15.9 mmHg. The inferior vena cava is dilated and does not collapse. Mild (1+) pulmonic valve insufficiency. Small pericardial effusion. Ordering Physician: Jalil Arredondo Referring Physician: Maxi Coats Performed By: Lizet Amaya, JORGE A, RVT
[2018-11-22 07:01] LABS: Bedside Glucose 68 mg/dL (70-110)
[2018-11-22 09:23] LABS: Hematocrit 27.4 % (37-47); Hemoglobin 8.5 g/dl (12.0-15.0)
[2018-11-22] MEDS: Aspirin E.C. 81 MG Tablet PO (09:35)
[2018-11-22] MEDS: glipiZIDE 5 MG Tablet PO (09:36)
[2018-11-22] MEDS: Ferrous Sulfate 325 MG Tablet PO ×2 (09:36→17:12)
[2018-11-22] MEDS: Nystatin Ointment 1 APPLIC TOPICAL ×2 (09:37→21:11)
--- NOTE | 2018-11-22 10:50 | CON.PCM_ITS ---
Reason for Consult Date of Consultation: 11/22/18 Reason for Consultation: CHF History of Present Illness: The patient is a 73 year old F with a history of severe mitral valve regurgitation status post recent bioprosthetic mitral valve replacement at [facility], discharged a few days ago. She did spend about 2 weeks at that hospital and her postoperative course was complicated by AV block necessitating dual-chamber pacemaker implantation. When she left the hospital s he was still fluid overloaded she tells me with lower extremity swelling and severe shortness of breath, but her condition got worse with her shortness of breath and orthopnea, associated with lower extremity swelling, she was brought by her family to the hospital here where she was started on IV loop diuretics. A 2D echocardiogram has been performed today. Her ECG shows sinus rhythm with ventricular pacing. Her troponins were mildly elevated. She is anemic with a hemoglobin around 8.2. She is diuresing well and states that her breathing is getting better. Her INR was subtherapeutic 1.9. She denies any palpitations dizziness or syncope. She has no chest pain chest discomfort. [] Past Medical History Allergies/Adverse Reactions: Allergies metformin Adverse Reaction (Verified 11/22/18 03:56) Nausea oxycodone Adverse Reaction (Verified 11/22/18 03:56) Nausea Home Medications: Ambulatory Orders Medication Instructions Recorded Glipizide 5 mg PO DAILY 06/15/18 Ferrous Sulfate [Iron] 325 mg PO BID #60 tab 06/19/18 Insulin Detemir [Levemir] 35 unit SQ DAILY #0 06/19/18 furosemide 40 mg tablet 40 mg PO BID #180 tab 07/16/18 potassium chloride ER 20 mEq 20 meq PO DAILY #90 tab 07/16/18 tablet,extended release(part/cryst) aspirin 81 mg tablet,delayed 81 mg PO DAILY 11/21/18 release warfarin 2.5 mg tablet 2.5 mg PO DAILY 11/21/18 Past Medical History (Chronic Problems): Chronic Problems (Last Reviewed 11/22/18 @ 03:40 by Jalil Arredondo MD) Acute exacerbation of congestive heart failure (Chronic) Nonrheumatic mitral (valve) insufficiency (Chronic) Left carotid artery stenosis (Chronic) 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 - *Family History Maternal Family History: Family History (Last Reviewed 11/22/18 @ 03:41 by Jalil Arredondo MD) Sister Hypertension Father FH: CABG (coronary artery bypass surgery) Heart valve disease Lives: Spouse/ Significant Other Smoking Status: Never smoker Alcohol: None Review of Systems - Review of Systems General: Denies: Fever, Night Sweats, Fatigue Cardiovascular: Denies: Chest Discomfort, Shortness of Breath, Orthopnea, PND, Peripheral Edema, Palpitations, Lightheadedness, Dizziness, Near Syncope, Syncope Respiratory: Denies: Cough, Sputum Production, Hemoptysis Gastrointestinal: Denies: Hematemesis, Hematochezia, Melena Genitourinary: Denies: Dysuria, Hematuria Skin: Denies: Rash Objective: Vital Signs Temp Pulse Resp BP Pulse Ox 97.6 F L 100 18 129/77 H 99 11/22/18 08:19 11/22/18 08:19 11/22/18 08:19 11/22/18 08:19 11/22/18 08:19 Oxygen Flow Rate (L/min) 2.0 Oxygen Delivery Method Nasal Cannula Weight: 269 lb 6.478 oz Body Mass Index (BMI) 42.1 Intake and Output for Last 24 Hours 11/20/18 11/21/18 11/22/18 23:59 23:59 23:59 Intake Total 240 / 240 Output Total 1200 / 1200 Balance -960 / -960 General: Awake, Alert, Oriented x 3, Obese HEENT: PERRL, EOMI, Sclera Non Icteric Neck: Supple, Good ROM, No Lymph Node Enlargement Lungs: Diminished Right Base, Rales - Eddie Bases Cardiovascular: Regular Rhythm, Normal S1, Normal S2, No Murmurs, No Rubs, No Gallops Abdomen: Bowel Sounds Present, Soft, Non Tender, Non Distended Extremities: Bilateral Edema +2 Skin: No Rashes Neurological: No Focal Motor or Sensory Deficit Psych/Mental Status: Appropriate 11/22/18 01:20: WBC 9.0, RBC 2.98 L, Hgb 8.3 L, Hct 27.1 L, MCV 90.9, MCH 27.9, MCHC 30.6 L, RDW 15.6 H, RDW Differential 49.3 H, Plt Count 311, MPV 9.7, Immature Gran % (Auto) 0.300, Neut % (Auto) 73.0 H, Lymph % (Auto) 12.9 L, [place] % (Auto) 8.8, Eos % (Auto) 4.7, Baso % (Auto) 0.3, Absolute Neuts (auto) 6.6, Total Counted Not Reportable 11/22/18 01:20: Sodium 126 L, Potassium 3.0 L, Chloride 90 L, Carbon Dioxide 29.0, Anion Gap 7, BUN 58 H, Creatinine 1.01, Est GFR (MDRD) Af Amer 69, Est GFR (MDRD) Non-Af 57 L, BUN/Creatinine Ratio 57.4 H, Glucose 188 H, Calcium 8.4 L, Troponin I 0.076 H 11/22/18 01:20: B-Natriuretic Peptide 566.1 H 11/22/18 02:35: PT 21.9 H, INR 1.9 11/22/18 04:50: Troponin I 0.093 H 11/22/18 07:15: Troponin I 0.119 H 11/22/18 09:00: Hgb 8.5 L, Hct 27.4 L Rhythm: EKG: ECHO: Stress Test: Cardiac Cath: PCI: CT Surgery: Holter monitor: EPS: PPM: CXR: Chest CT Scan: Assessment/Plan Impression: 1. CHF exacerbation, with moderate size right pleural effusion. 2. Valvular heart disease with severe mitral valve regurgitation, status post recent bioprosthetic mitral valve replacement at [facility], discharged from the hospital a few days ago, having spent over 2 weeks there. 3. Status post dual-chamber pacemaker implantation, most likely related to AV b lock secondary to her mitral valve replacement. 4. Anemia with a hemoglobin of 8.2. 5. Obesity 6. Mild elevation in her troponins, most likely related to #2 7. Type 2 diabetes mellitus Plan: 1. Continue diuresis with IV loop diuretics, follow I's and O's, daily weights, and BMP. 2. 2D echocardiogram has been performed. We will review that. 3. Consider thoracentesis of the right pleural effusion.
--- NOTE | 2018-11-22 11:38 | PCM.PROGNOTE ---
Subjective: The patient is a 73-year-old female with a past medical history of diastolic congestive heart failure, nonrheumatic mitral valve insufficiency, pacemaker placement, left carotid stenosis, bifascicular block with a right bundle branch block and left anterior hemiblock, pulmonary hypertension, nonrheumatic tricuspid valve insufficiency, nonrheumatic mitral valve stenosis, nonrheumatic aortic stenosis, hypertension, super obesity and diabetes mellitus type 2 who presented to the emergency department at [facility] on 11/22/2018 at 2:30 in the AM complaining of increasing shortness of breath over the preceding 3 weeks. She underwent bioprosthetic mitral valve replacement on 11/03/2018. She also complained of intermittent nausea/vomiting for a few days. She had bilateral lower extremity edema and reported a nonproductive cough. Vital signs at presentation to the emergency room were temperature 98.7, pulse rate 60, blood pressure 127/51, respiratory rate 27 and she was 95% saturated on room air. White blood cell count was 9.0 with an unremarkable differential. Hemoglobin was 8.3 with normochromic normocytic indices and platelets were within normal limits. INR was 1.9. Sodium was low at 126, potassium was low at 3.0, BUN was increased at 58 and the creatinine was 1.01. Troponin was 0.076 and BNP was 556. EKG showed paced rhythm. Chest x-ray showed bilateral pleural effusions and increased pulmonary vascular congestion. She was admitted to a monitored bed on the progressive care unit. Consultation was ordered with Dr. Ang from [facility]. Afebrile since admission Heart rate and blood pressure are stable. She is currently 99% on a 3 L nasal cannula. Fluid balance since admission is -960. Hemoglobin is stable at 8.5 this morning. Troponin increased from 0.076-0.11 this a.m. I reviewed Dr. Rdz's consult - Physical Exam General: Alert, Oriented x3, Cooperative, - - fatigued and pale HEENT: Atraumatic, PERRLA, EOMI, Normocephalic Oral: Moist Mucosa Neck: Supple, Trachea Midline, JVD, Bilateral Lungs: Diminished - in the bases, Rales Cardiovascular: Regular rate, Regular Rhythm, Normal S1, Normal S2, No murmurs, No rub noted Abdomen: Bowel Sounds Present, Soft, Non Tender, Non-Distended, Obese Extremities: No clubbing, No cyanosis, Edema, - - feet are warm to touch BL Skin: No rashes Neurological: Cranial nerves II-XII grossly intact, Neuro grossly intact Psych/Mental Status: Appropriate, Flat Affect Vital Signs Temp Pulse Resp BP Pulse Ox 97.6 F L 100 18 129/77 H 99 11/22/18 08:19 11/22/18 08:19 11/22/18 08:19 11/22/18 08:19 11/22/18 08:19 Oxygen Flow Rate (L/min) 2.0 Oxygen Delivery Method Nasal Cannula Weight: 269 lb 6.478 oz Body Mass Index (BMI) 42.1 Intake and Output for Last 24 Hours 11/20/18 11/21/18 11/22/18 23:59 23:59 23:59 Intake Total 240 / 240 Output Total 1200 / 1200 Balance -960 / -960 Laboratory Tests Past 24 Hrs 11/22/18 11/22/18 11/22/18 01:20 01:20 01:20 WBC 9.0 RBC 2.98 L Hgb 8.3 L Hct 27.1 L MCV 90.9 MCH 27.9 MCHC 30.6 L RDW 15.6 H RDW Differential 49.3 H Plt Count 311 MPV 9.7 Immature Gran % (Auto) 0.300 Neut % (Auto) 73.0 H Lymph % (Auto) 12.9 L Prowers % (Auto) 8.8 Eos % (Auto) 4.7 Baso % (Auto) 0.3 Absolute Neuts (auto) 6.6 Absolute Lymphs (auto) 1.16 Total Counted Not Reportable PT INR Sodium 126 L Potassium 3.0 L Chloride 90 L Carbon Dioxide 29.0 Anion Gap 7 BUN 58 H Creatinine 1.01 Estim Creat Clear Calc 39.82 Est GFR (MDRD) Af Amer 69 Est GFR (MDRD) Non-Af 57 L BUN/Creatinine Ratio 57.4 H Glucose 188 H Calcium 8.4 L Troponin I 0.076 H B-Natriuretic Peptide 566.1 H 11/22/18 11/22/18 11/22/18 02:35 04:50 07:15 WBC RBC Hgb Hct MCV MCH MCHC RDW RDW Differential Plt Count MPV Immature Gran % (Auto) Neut % (Auto) Lymph % (Auto) Prowers % (Auto) Eos % (Auto) Baso % (Auto) Absolute Neuts (auto) Absolute Lymphs (auto) Total Counted PT 21.9 H INR 1.9 Sodium Potassium Chloride Carbon Dioxide Anion Gap BUN Creatinine Estim Creat Clear Calc Est GFR (MDRD) Af Amer Est GFR (MDRD) Non-Af BUN/Creatinine Ratio Glucose Calcium Troponin I 0.093 H 0.119 H B-Natriuretic Peptide 11/22/18 09:00 WBC RBC Hgb 8.5 L Hct 27.4 L MCV MCH MCHC RDW RDW Differential Plt Count MPV Immature Gran % (Auto) Neut % (Auto) Lymph % (Auto) Prowers % (Auto) Eos % (Auto) Baso % (Auto) Absolute Neuts (auto) Absolute Lymphs (auto) Total Counted PT INR Sodium Potassium Chloride Carbon Dioxide Anion Gap BUN Creatinine Estim Creat Clear Calc Est GFR (MDRD) Af Amer Est GFR (MDRD) Non-Af BUN/Creatinine Ratio Glucose Calcium Troponin I B-Natriuretic Peptide POC Glucose 11/22/18 06:45 POC Glucose 68 L Medical Necessity - Tobacco Use Smoking Status: Never smoker Assessment/Plan All Active Problems (Last Reviewed 11/22/18 @ 03:40 by Jalil Arredondo MD) S/P mitral valve replacement with bioprosthetic valve (Acute) Bilateral pleural effusion (Resolved) Secondary pulmonary arterial hypertension (Resolved) Non-rheumatic tricuspid valve insufficiency (Resolved) Non-rheumatic mitral valve stenosis (Resolved) Non-rheumatic aortic stenosis (Resolved) Acute diastolic (congestive) heart failure (Resolved) Essential (primary) hypertension (Resolved) Chest pain (Resolved) Hypertensive emergency (Resolved) Impressions 1. Acute on chronic diastolic congestive heart failure 2. Recent bioprosthetic mitral valve replacement -spent 2 weeks at [facility], 1 week in the ICU 3. Recent pacemaker implantation 4. Anemia-likely secondary to recent blood loss related to surgery 5. Mild elevation in troponin 6. Diabetes mellitus type 2-not adequately controlled 7. Obesity 8. Moderate right sized pleural effusion 9. Hyponatremia - likely due to CHF 10. Metabolic alkalosis secondary to contraction alkalosis 11. Subtherapeutic INR 12. Severe pulmonary hypertension 13. Moderate concentric left ventricular hypertrophy 14. Chronic renal failure stage III 15. Deconditioning secondary to a 2-week stay at [facility], recent surgery and a 7-day stay in the ICU Appreciate Dr. Ang's consult Continue to didaniele.........with the contraction alkalosis will be difficult to get any quit improvement Recheck PT/INR in the a.m.-continue warfarin for now. If she is to have a thoracentesis for symptomatic improvement that going forward then will need to place the warfarin on hold-we will discuss with cardiology placing her on a heparin drip or Lovenox in the interim Recheck lab in the a.m. Discussed with Dr. Ang Code Visit Inpatient E&M: 05711 Subs Hosp L2
--- NOTE | 2018-11-22 11:45 | NURSING ---
Patient sitting up in chair, blood glucose checked at this time is 66. she denies being symptomatic at all. pt given orange juice, crackers and peanut butter. her lunch tray is ordered and on the way. will monitor.
[2018-11-22 12:11] LABS: Bedside Glucose 66 mg/dL (70-110)
[2018-11-22 12:20] LABS: Hemoglobin A1c 7.7 % (4.2-6.3)
--- NOTE | 2018-11-22 12:30 | NURSING ---
Patient sitting up in bed, she did eat almost 100% of her lunch and declines having her blood glucose checked again.
[2018-11-22 12:49] LABS: Anion Gap 8 (5-15); BUN 54 mg/dL (7-18); BUN/Creat Ratio 52.4 RATIO (10-20); Calcium,Total 8.7 mg/dL (8.5-10.1); Chloride 88 mmol/L (98-107); Creatinine, Serum 1.03 mg/dL (0.55-1.02); EST Glomerular Filtration Rate 56 mL/min (>60); Est Glom Filt Rate - Afr Amer 68 mL/min (>60); Estimated Creatinine Clearance 40.84 ml/min; Glucose 84 mg/dL (74-106); Potassium 3.3 mmol/L (3.5-5.1); Sodium Level 134 mmol/L (136-145)
[2018-11-22 13:06] LABS: AST(SGOT) 14 U/L (15-37); Alanine Aminotransfer ALT/SGPT 14 U/L (13-56); Albumin, Serum 2.5 g/dL (3.2-5.0); Alkaline Phosphatase 106 U/L (45-117); Bilirubin, Direct 0.13 mg/dL (0.00-0.30); Globulin 4.6 g/dL (2.2-4.2); Magnesium 2.1 mg/dL (1.6-2.6); Phosphorus 3.6 mg/dL (2.5-4.9); Protein, Total 7.1 g/dL (6.4-8.2)
[2018-11-22 14:06] LABS: Allen Test POS; Base Excess 13 mmol/L (-2 to +2); Bicarbonate 34.2 mmol/L (22-26); Blood Gas Specimen Type ART; O2 Delivery Device Nasal Can; PO2 100 mmHG (75-100); SITE L Radial; SO2 99 % (95-99); Time Given 1350; Total Carbon Dioxide 35 mmol/L; pCO2 31.5 mmHg (35-45); pH 7.64 (7.35-7.45)
--- NOTE | 2018-11-22 14:14 | CPS ---
Critical ABG value reported to read back.
--- NOTE | 2018-11-22 15:58 | CASEMGMT ---
Social Work Referral: Self-Pay Informant: Self referral. Met with patient and patient family in room. Patient lives with spouse in a 2-story home with 2-3 steps to enter the home. Patient with recent stay at [facility] from open heart surgery. Patient reporting to use a walker since surgery, but was working on recovery. Patient reporting to be new on oxygen. This secondary social studies teacher inquiring about financial needs/resources. Patient reporting to be able to make payments and speak to the moravian if patient is unable to afford medical bills. Patient reporting to have support from family/friends and to have no transportation concerns. Support provided. Patient plans to discharge to home with significant other. Iris Dick MSW, KAM
[2018-11-22 16:40] LABS: Bedside Glucose 120 mg/dL (70-110)
[2018-11-22] MEDS: Glucerna Shake 120 ML LIQUID 60 ML PO ×2 (17:20→21:11)
[2018-11-22 19:15] LABS: Hematocrit 29.7 % (37-47)
[2018-11-22 20:01] LABS: Anion Gap 4 (5-15); BUN 55 mg/dL (7-18); BUN/Creat Ratio 47.8 RATIO (10-20); Calcium,Total 8.9 mg/dL (8.5-10.1); Chloride 89 mmol/L (98-107); Creatinine, Serum 1.15 mg/dL (0.55-1.02); EST Glomerular Filtration Rate 49 mL/min (>60); Est Glom Filt Rate - Afr Amer 60 mL/min (>60); Estimated Creatinine Clearance 36.58 ml/min; Glucose 154 mg/dL (74-106); Sodium Level 128 mmol/L (136-145)
[2018-11-22] MEDS: Insulin Lispro 100 UNIT/ML INSULN.PEN SC (21:11)
[2018-11-22 21:55] LABS: Bedside Glucose 202 mg/dL (70-110)
[2018-11-22] MEDS: Acetaminophen 325 MG Tablet 650 MG PO (22:43)
[2018-11-23] VITALS (12 sets, daily range): BP systolic 125–154; BP diastolic 46–75; PULSE 90–103; RESP 18–25; TEMP 36.7–36.9; O2SAT 95–100
[2018-11-23] MEDS: Acetaminophen 325 MG Tablet 650 MG PO ×3 (06:12→22:08)
[2018-11-23 06:13] LABS: Hematocrit 28.3 % (37-47); Hemoglobin 8.4 g/dl (12.0-15.0); Mean Corp Hgb Conc 29.7 g/gl (32-36); Mean Corpuscular Hgb 27.6 pg (27.0-32.0); Mean Corpuscular Volume 93.1 fL (81-99); Mean Platelet Vol. 9.6 fl (6.2-12.0); Platelet Count 328 K/mm3 (150-450); RBC Distribution Width CV 15.8 % (11.6-14.6); RBC Distribution Width SD 51.4 fl (35.1-43.9); Red Blood Count 3.04 M/mm3 (4.2-5.4); White Blood Count 6.1 K/mm3 (4.4-11.0)
[2018-11-23 06:15] LABS: Scan Indicated on CBC? Y/N NO
[2018-11-23 06:18] LABS: International Normalized Ratio 1.7; Prothrombin Time (Protime)PT. 19.9 SECONDS (11.7-14.9)
[2018-11-23 06:30] LABS: ALB/GLOB Ratio 0.5 RATIO (0.9-2.4); AST(SGOT) 14 U/L (15-37); Alanine Aminotransfer ALT/SGPT 14 U/L (13-56); Albumin, Serum 2.4 g/dL (3.2-5.0); Alkaline Phosphatase 103 U/L (45-117); Anion Gap 8 (5-15); BUN 55 mg/dL (7-18); BUN/Creat Ratio 50.9 RATIO (10-20); Calcium,Total 8.6 mg/dL (8.5-10.1); Chloride 90 mmol/L (98-107); Cholesterol 100 mg/dL (200); Creatinine, Serum 1.08 mg/dL (0.55-1.02); EST Glomerular Filtration Rate 53 mL/min (>60); Est Glom Filt Rate - Afr Amer 64 mL/min (>60); Estimated Creatinine Clearance 38.95 ml/min; Globulin 4.5 g/dL (2.2-4.2); Glucose 181 mg/dL (74-106); High Density Lipoprotein 34 mg/dL; Magnesium 2.1 mg/dL (1.6-2.6); Phosphorus 3.3 mg/dL (2.5-4.9); Potassium 4.1 mmol/L (3.5-5.1); Protein, Total 6.9 g/dL (6.4-8.2); Sodium Level 134 mmol/L (136-145); Triglycerides 76 mg/dL; Very Low Density Lipoprotein 15 mg/dL (5-40)
[2018-11-23 06:55] LABS: Bedside Glucose 190 mg/dL (70-110)
--- NOTE | 2018-11-23 06:56 | EKG12_ITS ---
Test Reason : SOB Blood Pressure : / mmHG Vent. Rate : 078 BPM Atrial Rate : 082 BPM P-R Int : 000 ms QRS Dur : 178 ms QT Int : 466 ms P-R-T Axes : 000 -83 096 degrees QTc Int : 531 ms Ventricular-paced rhythm Abnormal ECG Confirmed by MOHINI CHRISTIANSON ([id number]), primer expeditor and drier ERASMO KNIGHT ([id number]) on 11/26/2018 2:04:34 PM Referred By: MASON Confirmed By:MOHINI CHRISTIANSON
[2018-11-23] MEDS: Aspirin E.C. 81 MG Tablet PO (08:04)
[2018-11-23] MEDS: Ferrous Sulfate 325 MG Tablet PO ×2 (08:04→16:36)
[2018-11-23] MEDS: glipiZIDE 5 MG Tablet PO (08:04)
[2018-11-23] MEDS: Insulin Lispro 100 UNIT/ML INSULN.PEN SC ×4 (08:06→21:49)
--- NOTE | 2018-11-23 09:15 | RAD_ITS ---
STUDY: X-RAY CHEST REASON FOR EXAM: Female, 73 years old. TECHNIQUE: 2 views COMPARISON: November 22, 2018 at 1:0 9:00 AM FINDINGS: The heart remains mildly enlarged with linear atelectasis seen in both midlung watt. There is further opacification involving the right base. The permanent pacemaker is still noted with [address] The apices and upper lung watt are clear. The visualized bones are intact. There are multiple metallic stitches along the sternum from previous surgery. RAD/Chest PA and Lateral IMPRESSION: Slight interval increase in the opacities seen in the right base with possible left right-sided pleural effusion. Atelectatic changes in both lung watt Electronically Signed: Esau Levy, at 10:58 EDT Tel , Service support ,
[2018-11-23] MEDS: Furosemide 40 MG/4 ML Vial IV (09:35)
[2018-11-23] MEDS: Nystatin Ointment 1 APPLIC TOPICAL ×2 (09:35→21:47)
[2018-11-23] MEDS: Glucerna Shake 120 ML LIQUID 60 ML PO ×4 (09:35→21:48)
[2018-11-23] MEDS: 0.9% NaCl Peripheral Flush Adult/Peds IV ×4 (09:35→22:01)
[2018-11-23 11:45] LABS: Bedside Glucose 273 mg/dL (70-110)
--- NOTE | 2018-11-23 12:11 | PN.CARD_ITS ---
Subjectve: She states that she still feels the same in regards to her shortness of breath. She was over 1500 cc of negative balance since admission, but it appears that she slowed down last shift. Objective: Vital Signs Temp Pulse Resp BP Pulse Ox 98.3 F 90 18 138/59 H 95 11/23/18 09:33 11/23/18 09:33 11/23/18 09:33 11/23/18 09:33 11/23/18 09:33 Oxygen Flow Rate (L/min) 2 Oxygen Delivery Method Nasal Cannula Weight: 272 lb 0.807 oz Body Mass Index (BMI) 42.1 Intake and Output for Last 24 Hours 11/21/18 11/22/18 11/23/18 23:59 23:59 23:59 Intake Total 1645 / 1645 320 / 320 Output Total 2900 / 2900 750 / 750 Balance -1255 / -1255 -430 / -430 General: Awake, Alert, Oriented x 3 HEENT: PERRL, EOMI, Sclera Non Icteric Neck: Supple, Good ROM, No Lymph Node Enlargement Lungs: Diminished Right Base, Rales - Eddie Bases Cardiovascular: Regular Rhythm, Normal S1, Normal S2, No Murmurs, No Rubs, No Gallops Extremities: Bilateral Edema +2 11/22/18 09:07: Hemoglobin A1c 7.7 H 11/22/18 12:05: Sodium 134 L, Potassium 3.3 L, Chloride 88 L, Carbon Dioxide 38.0 H, Anion Gap 8, BUN 54 H, Creatinine 1.03 H, Est GFR (MDRD) Af Amer 68, Est GFR (MDRD) Non-Af 56 L, BUN/Creatinine Ratio 52.4 H, Glucose 84, Calcium 8.7 11/22/18 12:05: Phosphorus 3.6, Magnesium 2.1, Total Bilirubin 0.40, Direct Bilirubin 0.13 11/22/18 14:02: pH 7.64 H*, Bicarbonate Actual 34.2 H, POC Total CO2 35, Base Excess 13 H, O2 Saturation 99, ABG pCO2 31.5 L, ABG pO2 100, Agapito Test POS 11/22/18 18:49: Hgb 9.0 L, Hct 29.7 L 11/22/18 18:49: Sodium 128 L, Potassium 4.0, Chloride 89 L, Carbon Dioxide 35.0 H, Anion Gap 4 L, BUN 55 H, Creatinine 1.15 H, Est GFR (MDRD) Af Amer 60, Est GFR (MDRD) Non-Af 49 L, BUN/Creatinine Ratio 47.8 H, Glucose 154 H, Calcium 8.9 11/23/18 05:40: WBC 6.1, RBC 3.04 L, Hgb 8.4 L, Hct 28.3 L, MCV 93.1, MCH 27.6, MCHC 29.7 L, RDW 15.8 H, RDW Differential 51.4 H, Plt Count 328, MPV 9.6 11/23/18 05:40: PT 19.9 H, INR 1.7 11/23/18 05:40: Sodium 134 L, Potassium 4.1, Chloride 90 L, Carbon Dioxide 36.0 H, Anion Gap 8, BUN 55 H, Creatinine 1.08 H, Est GFR (MDRD) Af Amer 64, Est GFR (MDRD) Non-Af 53 L, BUN/Creatinine Ratio 50.9 H, Glucose 181 H, Calcium 8.6, Phosphorus 3.3, Magnesium 2.1, Total Bilirubin 0.40, Triglycerides 76, Cholesterol 100, LDL Cholesterol 51, VLDL Cholesterol 15, HDL Cholesterol 34 L Rhythm: EKG: ECHO: Stress Test: Cardiac Cath: PCI: CT Surgery: Holter monitor: EPS: PPM: CXR: Chest CT Scan: Medical Necessity - Tobacco Use Smoking Status: Never smoker Assessment/Plan Impression: 1. CHF exacerbation, with moderate size right pleural effusion. 2. Valvular heart disease with severe mitral valve regurgitation, status post recent bioprosthetic mitral valve [place] [facility] [place], discharged from the hospital a few days ago, having spent over 2 weeks there. 3. Status post dual-chamber pacemaker implantation, most likely related to AV block secondary to her mitral valve replacement. 4. Anemia with a hemoglobin of 8.2. 5. Obesity 6. Mild elevation in her troponins, most likely related to #2 7. Type 2 diabetes mellitus Plan: Her 2D echocardiogram showed normal LV systolic function, unable to clearly visualize the mitral valve bioprosthesis, however the mean valvular gradient is around 15 mmHg. Her IVC is dilated and non-collapsing. She has severe pulmonary hypertension. Today she continues to feel the same with no subjective improvement to her symptoms. She is in a negative fluid balance, but her diuresis appears to have slowed down. I am going to intensify her loop diuretics, with increase in the Lasix dose to 80 mg every 8 hours. The primary team is planning to transfuse her. Would suggest tapping the right sided pleural effusion for symptomatic improvement. I am concerned about the increased gradient across the bioprosthesis and further investigative work-up may need to be done [place] [facility] if she does not get better.
[2018-11-23] MEDS: Furosemide 100 MG/10 ML Vial 80 MG IV ×2 (13:00→21:49)
[2018-11-23 16:36] LABS: Bedside Glucose 281 mg/dL (70-110)
--- NOTE | 2018-11-23 17:15 | PN_ITS ---
Subjective: Afebrile since admission. Blood pressure is stable. Heart rate at rest is mostly in the 90s. She is 95 to 97% saturated on a 2 L nasal cannula. Fluid balance on 11/22/2018 was -1255. Fluid balance since admission is -1685. All lab was personally reviewed. Hemoglobin is stable at 8.4. White blood cell count is 6.1 and platelets are within normal limits. INR is subtherapeutic at 1.7 today. Sodium is up to 134 from 128 on 11/22/2018. Serum bicarb is 36 and the chloride is 90. BUN is 55 with a creatinine of 1.08. ABG on 11/22/2018 showed a pH of 7.64 with a PCO2 of 31 and a PO2 of 90 and that was on 2 L. She is complaining of extreme fatigue. She is also continuing to complain of shortness of breath with even minimal exertion. She denies chest pain. She tells me that she really does not feel any better today. Echocardiogram was consistent with severe pulmonary hypertension. The mean valvular gradient over the mitral valve was 15 mmHg but the prosthesis itself was not well visualized. D/W Dr. Ang and he increased the lasix. He recommends thoracentesis to improve SOB. - Physical Exam General: Alert, Oriented x3, Cooperative, - - Appears very fatigued. She is very pale. HEENT: Atraumatic, PERRLA Oral: Moist Mucosa Neck: Supple, Trachea Midline, JVD, Bilateral Lungs: Diminished - Very diminished in the right base, Rales - BL, - - No conversational dyspnea, no accessory muscle use while sitting in the recliner Cardiovascular: Regular rate, Regular Rhythm, Normal S1, Normal S2, No Gallop Abdomen: Bowel Sounds Present, Soft, Non Tender, Non-Distended, Obese Extremities: No clubbing, No cyanosis, Edema Skin: No rashes Psych/Mental Status: Appropriate, Flat Affect Vital Signs Temp Pulse Resp BP Pulse Ox 98.5 F 97 18 154/75 H 97 11/23/18 15:33 11/23/18 15:33 11/23/18 15:33 11/23/18 15:33 11/23/18 15:33 Oxygen Flow Rate (L/min) 2 Oxygen Delivery Method Nasal Cannula Weight: 272 lb 0.807 oz Body Mass Index (BMI) 42.1 Intake and Output for Last 24 Hours 11/21/18 11/22/18 11/23/18 23:59 23:59 23:59 Intake Total 1645 / 1645 320 / 320 Output Total 2900 / 2900 750 / 750 Balance -1255 / -1255 -430 / -430 Laboratory Tests Past 24 Hrs 11/22/18 11/22/18 11/23/18 18:49 18:49 05:40 WBC 6.1 RBC 3.04 L Hgb 9.0 L 8.4 L Hct 29.7 L 28.3 L MCV 93.1 MCH 27.6 MCHC 29.7 L RDW 15.8 H RDW Differential 51.4 H Plt Count 328 MPV 9.6 PT INR Sodium 128 L Potassium 4.0 Chloride 89 L Carbon Dioxide 35.0 H Anion Gap 4 L BUN 55 H Creatinine 1.15 H Estim Creat Clear Calc 36.58 Est GFR (MDRD) Af Amer 60 Est GFR (MDRD) Non-Af 49 L BUN/Creatinine Ratio 47.8 H Glucose 154 H Calcium 8.9 Phosphorus Magnesium Total Bilirubin AST ALT Alkaline Phosphatase Total Protein Albumin Globulin Albumin/Globulin Ratio Triglycerides Cholesterol LDL Cholesterol VLDL Cholesterol HDL Cholesterol 11/23/18 11/23/18 05:40 05:40 WBC RBC Hgb Hct MCV MCH MCHC RDW RDW Differential Plt Count MPV PT 19.9 H INR 1.7 Sodium 134 L Potassium 4.1 Chloride 90 L Carbon Dioxide 36.0 H Anion Gap 8 BUN 55 H Creatinine 1.08 H Estim Creat Clear Calc 38.95 Est GFR (MDRD) Af Amer 64 Est GFR (MDRD) Non-Af 53 L BUN/Creatinine Ratio 50.9 H Glucose 181 H Calcium 8.6 Phosphorus 3.3 Magnesium 2.1 Total Bilirubin 0.40 AST 14 L ALT 14 Alkaline Phosphatase 103 Total Protein 6.9 Albumin 2.4 L Globulin 4.5 H Albumin/Globulin Ratio 0.5 L Triglycerides 76 Cholesterol 100 LDL Cholesterol 51 VLDL Cholesterol 15 HDL Cholesterol 34 L POC Glucose 11/23/18 11/23/18 11/23/18 16:08 11:26 06:16 POC Glucose 281 H 273 H 190 H 11/22/18 21:08 POC Glucose 202 H Medical Necessity - Tobacco Use Smoking Status: Never smoker Assessment/Plan All Active Problems (Last Reviewed 11/22/18 @ 03:40 by Jalil Arredondo MD) S/P mitral valve replacement with bioprosthetic valve (Acute) Bilateral pleural effusion (Resolved) Secondary pulmonary arterial hypertension (Resolved) Non-rheumatic tricuspid valve insufficiency (Resolved) Non-rheumatic mitral valve stenosis (Resolved) Non-rheumatic aortic stenosis (Resolved) Acute diastolic (congestive) heart failure (Resolved) Essential (primary) hypertension (Resolved) Chest pain (Resolved) Hypertensive emergency (Resolved) Impressions 1. Acute on chronic diastolic congestive heart failure 2. Recent bioprosthetic mitral valve replacement -spent 2 weeks at [facility], 1 week in the ICU 3. Recent pacemaker implantation 4. Anemia-likely secondary to recent blood loss related to surgery 5. Mild elevation in troponin 6. Diabetes mellitus type 2-not adequately controlled 7. Obesity 8. Moderate right sized pleural effusion 9. Hyponatremia - likely due to CHF 10. Metabolic alkalosis secondary to contraction alkalosis 11. Subtherapeutic INR 12. Severe pulmonary hypertension 13. Moderate concentric left ventricular hypertrophy 14. Chronic renal failure stage III 15. Deconditioning secondary to a 2-week stay at [facility], recent surgery and a 7-day stay in the ICU Place Warfarin on hold in preparation for thoracentesis Lasix increased to 80 mg IV every 8 hours - concerned this may make the contraction alkalosis worse Recheck lab in the a.m. Increase Lantus to 40 units every morning Increase the sliding insulin scale to medium PA and lateral chest x-ray in the a.m.-patient is to be sitting upright for at least 30 minutes prior to the x-ray and go to x-ray in a wheelchair. Code Visit Inpatient E&M: 57793 Subs Hosp L2
[2018-11-23 23:16] LABS: Bedside Glucose 267 mg/dL (70-110)
[2018-11-24] VITALS (12 sets, daily range): BP systolic 115–141; BP diastolic 51–68; PULSE 90–110; RESP 17–26; TEMP 36.7–37.1; O2SAT 97–100
--- NOTE | 2018-11-24 05:55 | RAD_ITS ---
STUDY: X-RAY CHEST REASON FOR EXAM: Female, 73 years old. TECHNIQUE: 2 views COMPARISON: November 23, 2018 FINDINGS: The heart remains enlarged. Atelectatic changes noted in both midlung watt with central heavy markings. There is a right-sided pleural effusion . Underlying infiltrate at either base cannot be excluded. The apices and upper lung are clear. There is permanent pacemaker with [address] RAD/Chest PA and Lateral IMPRESSION: No change noted since the study done the day before. Electronically Signed: Esau Levy, at 8:09 EDT Tel , Service support ,
[2018-11-24] MEDS: 0.9% NaCl Peripheral Flush Adult/Peds IV ×3 (06:07→12:15)
[2018-11-24] MEDS: Furosemide 100 MG/10 ML Vial 80 MG IV ×3 (06:07→22:37)
[2018-11-24 06:25] LABS: Absolute Lymphocyte Count 1.19 X10^3/ul (0.83-4.51); Absolute Neutrophil Count 4.7 X10^3/uL (2.0-7.7); Basophil# 0.04 X10^3/uL; Basophil% 0.6 % (0-1); Eosinophil# 0.52 X10^3/uL; Eosinophils% 7.2 % (0-5); Hematocrit 28.8 % (37-47); Hemoglobin 8.6 g/dl (12.0-15.0); Lymphocyte # 1.19 X10^3/ul (4.0); Lymphocyte % 16.6 % (19-41); Mean Corp Hgb Conc 29.9 g/gl (32-36); Mean Corpuscular Hgb 27.8 pg (27.0-32.0); Mean Corpuscular Volume 93.2 fL (81-99); Mean Platelet Vol. 9.8 fl (6.2-12.0); Monocyte# 0.66 X10^3/uL; Monocyte% 9.2 % (0-10); Neutrophil # 4.73 X10^3/uL (2.7-7.7); Neutrophil % 65.7 % (47-70); Platelet Count 284 K/mm3 (150-450); RBC Distribution Width CV 15.8 % (11.6-14.6); RBC Distribution Width SD 50.9 fl (35.1-43.9); Red Blood Count 3.09 M/mm3 (4.2-5.4); White Blood Count 7.2 K/mm3 (4.4-11.0)
[2018-11-24 06:27] LABS: POSITIVE COUNT NO; POSITIVE DIFFERENTIAL NO; POSITIVE MORPHOLOGY NO
[2018-11-24 06:40] LABS: International Normalized Ratio 1.5; Prothrombin Time (Protime)PT. 17.6 SECONDS (11.7-14.9)
[2018-11-24 06:42] LABS: Anion Gap 8 (5-15); BUN 49 mg/dL (7-18); BUN/Creat Ratio 49.6 RATIO (10-20); Calcium,Total 9.1 mg/dL (8.5-10.1); Chloride 90 mmol/L (98-107); Creatinine, Serum 0.99 mg/dL (0.55-1.02); EST Glomerular Filtration Rate 59 mL/min (>60); Est Glom Filt Rate - Afr Amer 71 mL/min (>60); Estimated Creatinine Clearance 42.49 ml/min; Glucose 237 mg/dL (74-106); Magnesium 2.3 mg/dL (1.6-2.6); Potassium 3.7 mmol/L (3.5-5.1); Sodium Level 134 mmol/L (136-145)
[2018-11-24 07:06] LABS: Bedside Glucose 230 mg/dL (70-110)
[2018-11-24] MEDS: glipiZIDE 5 MG Tablet PO (07:15)
[2018-11-24] MEDS: Ferrous Sulfate 325 MG Tablet PO ×2 (07:59→16:37)
[2018-11-24] MEDS: Aspirin E.C. 81 MG Tablet PO (07:59)
[2018-11-24] MEDS: Insulin Lispro 100 UNIT/ML INSULN.PEN SC ×4 (08:00→22:44)
[2018-11-24] MEDS: Glucerna Shake 120 ML LIQUID 60 ML PO ×4 (08:01→22:36)
[2018-11-24] MEDS: Nystatin Ointment 1 APPLIC TOPICAL ×2 (08:01→22:38)
--- NOTE | 2018-11-24 08:39 | PN.CARD_ITS ---
Subjectve: Patient seen and evaluated. Appears to be doing fairly well. Breathing has improved. Objective: Vital Signs Temp Pulse Resp BP Pulse Ox 98.0 F 98 17 124/51 H 97 11/24/18 02:23 11/24/18 07:16 11/24/18 02:23 11/24/18 02:23 11/24/18 02:23 Oxygen Flow Rate (L/min) 2 Oxygen Delivery Method Nasal Cannula Weight: 264 lb 5.348 oz Body Mass Index (BMI) 42.1 Intake and Output for Last 24 Hours 11/22/18 11/23/18 11/24/18 23:59 23:59 23:59 Intake Total 1645 / 1645 850 / 850 20 / 20 Output Total 2900 / 2900 2375 / 2375 400 / 400 Balance -1255 / -1255 -1525 / -1525 -380 / -380 General: Awake, Alert, Oriented x 3 HEENT: PERRL, EOMI, Sclera Non Icteric Neck: Supple, Good ROM, No Lymph Node Enlargement Lungs: Diminished Right Base Cardiovascular: Regular Rhythm, Normal S1, Normal S2, No Murmurs, No Rubs, No Gallops Vascular: No Carotid Bruits, Normal Femoral Pulses, Normal Radial Pulses, Normal Dorsalis Pedal Pulse, Normal Posterior Tibial Pulses Abdomen: Bowel Sounds Present, Soft, Non Tender, No HSM, No Organomegaly Extremities: No Cyanosis, No Clubbing, Bilateral Edema +1 Musculoskeletal: No Erythema Skin: No Rashes Lymphatic: No Lymph Node Enlargement Neurological: No Focal Motor or Sensory Deficit Psych/Mental Status: Appropriate 11/24/18 06:10: PT 17.6 H, INR 1.5 11/24/18 06:10: WBC 7.2, RBC 3.09 L, Hgb 8.6 L, Hct 28.8 L, MCV 93.2, MCH 27.8, MCHC 29.9 L, RDW 15.8 H, RDW Differential 50.9 H, Plt Count 284, MPV 9.8, Immature Gran % (Auto) 0.700, Neut % (Auto) 65.7, Lymph % (Auto) 16.6 L, Smith % (Auto) 9.2, Eos % (Auto) 7.2 H, Baso % (Auto) 0.6, Absolute Neuts (auto) 4.7, Total Counted Not Reportable 11/24/18 06:10: Sodium 134 L, Potassium 3.7, Chloride 90 L, Carbon Dioxide 36.0 H, Anion Gap 8, BUN 49 H, Creatinine 0.99, Est GFR (MDRD) Af Amer 71, Est GFR ( MDRD) Non-Af 59 L, BUN/Creatinine Ratio 49.6 H, Glucose 237 H, Calcium 9.1, Phosphorus 3.0, Magnesium 2.3 Rhythm: EKG: ECHO: Stress Test: Cardiac Cath: PCI: CT Surgery: Holter monitor: EPS: PPM: CXR: Chest CT Scan: Medical Necessity - Tobacco Use Smoking Status: Never smoker Assessment/Plan 1. Diastolic heart failure * Patient presents status post mitral valve replacement and is noted to be in diastolic heart failure. She is also noted to be anemic which may have contributed to the heart failure. * She will require a thoracentesis hopefully this afternoon and then will continue with her diuretics and hopefully discharge in the next few days. Her echocardiogram demonstrated preserved ejection fraction with an adequately seated prosthetic mitral valve * 2. Status post mitral valve replacement * Patient is status post mitral valve replacement * Prosthetic mitral valve appears to be functioning well. Would not recommend any changes at this time. Will resume Coumadin at the appropriate time after thoracentesis. * 3. Aortic valve disease * Patient has mild aortic valve disease and will continue to follow. * * 4. Status post permanent pacemaker implantation * Patient is status post permanent pacemaker implantation. This appears to be functioning well I would not recommend that we make any changes. She will follow-up in our pacemaker clinic. * Thank you for allowing me to participate in the care of your patient. Please don't hesitate to call if any issues arise
--- NOTE | 2018-11-24 11:56 | NURSING ---
wound photo: mid upper abdomen (old drain sites)
[2018-11-24 12:31] LABS: Bedside Glucose 271 mg/dL (70-110)
[2018-11-24 16:45] LABS: Bedside Glucose 247 mg/dL (70-110)
--- NOTE | 2018-11-24 21:15 | PN_ITS ---
Subjective: AF, VSS 97% on 2 LPM today Fluid balance on 11/23/2018 was -1525. Fluid balance since admission is -2780. All lab was personally reviewed. Hemoglobin is stable at 8.6. White blood cell count and differential are within normal limits. Platelets are normal. INR is 1.5 and anticoagulation is on hold in preparation for thoracentesis. Serum bic arb is elevated at 36 but stable. This is secondary to contraction alkalosis. Sodium is mildly decreased at 134. The BUN is 49 and the creatinine is 0.99 and both of these values are improving with diuresis. Chest x-ray today is unchanged from previous x-ray despite diuresis. Less SOB today. Was able to ambulate to the door of her room and back. Legs are dependent in the recliner and not elevated. There are no TEDS or SHAYLA wraps on her legs. - Physical Exam General: Alert, Oriented x3, Cooperative, - - mood is more upbeat today but she admits to felling depressed and not sleeping well. She is constantly feling fatigued Oral: Moist Mucosa Neck: Trachea Midline Lungs: - - BS's are very diminished in the R base and there are rales in both bases. No wheezing. Cardiovascular: Regular rate, Regular Rhythm, Normal S1, Normal S2, No murmurs, - - no gallop appreciated Abdomen: Bowel Sounds Present, Soft, Non Tender, Non-Distended, Obese Extremities: Edema - legs are dependent most of the day and she usually sleeps in the chair at night Skin: - - the sternal incision and the incision for the PM are both healing well with no periwound erythema and no openings in the skin Neurological: Cranial nerves II-XII grossly intact, Neuro grossly intact Psych/Mental Status: Appropriate, Flat Affect, Depressed Vital Signs Temp Pulse Resp BP Pulse Ox 98.3 F 91 18 141/67 H 100 11/24/18 20:20 11/24/18 20:20 11/24/18 20:20 11/24/18 20:20 11/24/18 20:20 Oxygen Flow Rate (L/min) 2 Oxygen Delivery Method Nasal Cannula Weight: 264 lb 5.348 oz Body Mass Index (BMI) 42.1 Intake and Output for Last 24 Hours 11/22/18 11/23/18 11/24/18 23:59 23:59 23:59 Intake Total 1645 / 1645 850 / 850 500 / 500 Output Total 2900 / 2900 2375 / 2375 1700 / 1700 Balance -1255 / -1255 -1525 / -1525 -1200 / -1200 Laboratory Tests Past 24 Hrs 11/24/18 11/24/18 11/24/18 06:10 06:10 06:10 WBC 7.2 RBC 3.09 L Hgb 8.6 L Hct 28.8 L MCV 93.2 MCH 27.8 MCHC 29.9 L RDW 15.8 H RDW Differential 50.9 H Plt Count 284 MPV 9.8 Immature Gran % (Auto) 0.700 Neut % (Auto) 65.7 Lymph % (Auto) 16.6 L [place] % (Auto) 9.2 Eos % (Auto) 7.2 H Baso % (Auto) 0.6 Absolute Neuts (auto) 4.7 Absolute Lymphs (auto) 1.19 Total Counted Not Reportable PT 17.6 H INR 1.5 Sodium 134 L Potassium 3.7 Chloride 90 L Carbon Dioxide 36.0 H Anion Gap 8 BUN 49 H Creatinine 0.99 Estim Creat Clear Calc 42.49 Est GFR (MDRD) Af Amer 71 Est GFR (MDRD) Non-Af 59 L BUN/Creatinine Ratio 49.6 H Glucose 237 H Calcium 9.1 Phosphorus 3.0 Magnesium 2.3 POC Glucose 11/24/18 11/24/18 11/24/18 16:36 12:11 06:59 POC Glucose 247 H 271 H 230 H 11/23/18 21:46 POC Glucose 267 H Medical Necessity - Tobacco Use Smoking Status: Never smoker Assessment/Plan All Active Problems (Last Reviewed 11/22/18 @ 03:40 by Jalil Arredondo MD) S/P mitral valve replacement with bioprosthetic valve (Acute) Bilateral pleural effusion (Resolved) Secondary pulmonary arterial hypertension (Resolved) Non-rheumatic tricuspid valve insufficiency (Resolved) Non-rheumatic mitral valve stenosis (Resolved) Non-rheumatic aortic stenosis (Resolved) Acute diastolic (congestive) heart failure (Resolved) Essential (primary) hypertension (Resolved) Chest pain (Resolved) Hypertensive emergency (Resolved) Impressions 1. Acute on chronic diastolic congestive heart failure 2. Recent bioprosthetic mitral valve replacement -spent 2 weeks at [facility], 1 week in the ICU 3. Recent pacemaker implantation 4. Anemia-likely secondary to recent blood loss related to surgery 5. Mild elevation in troponin 6. Diabetes mellitus type 2-not adequately controlled 7. Obesity 8. Moderate right sized pleural effusion 9. Hyponatremia - likely due to CHF 10. Metabolic alkalosis secondary to contraction alkalosis 11. Subtherapeutic INR 12. Severe pulmonary hypertension 13. Moderate concentric left ventricular hypertrophy 14. Chronic renal failure stage III 15. Deconditioning secondary to a 2-week stay at [facility], recent surgery and a 7-day stay in the ICU Start Lovenox bridge 24 hours after thoracentesis and restart Warfarin continue the current dose of Lasix and continue to monitor metabolic alkalosis closely Thoracentesis in the AM Start Remeron at HS for depression and insomnia Encouraged the pt to sleep in the bed and elevate legs tonight. Also advised to elevate legs while she is in the recliner SHAYLA wraps to be applied the minute she gets out of bed in the morning and to remain on until she goes to bed suspect she may need SNF at [place].......she is significantly deconditioned Continue to adjust the insulin to get the BS's all < 200
[2018-11-24] MEDS: Acetaminophen 500 MG Tablet 1000 MG PO (22:36)
[2018-11-24] MEDS: Mirtazapine 15 MG Tablet PO (22:37)
[2018-11-24] MEDS: Ipratropium Bromide 0.06% NASAL SPRAY 2 SPRAY NASAL (22:37)
[2018-11-24 23:00] LABS: Bedside Glucose 229 mg/dL (70-110)
[2018-11-25] VITALS (12 sets, daily range): BP systolic 116–150; BP diastolic 51–71; PULSE 80–104; RESP 16–20; TEMP 36.7–36.9; O2SAT 95–98
[2018-11-25] MEDS: Ipratropium Bromide 0.06% NASAL SPRAY 2 SPRAY NASAL ×3 (06:19→22:00)
[2018-11-25] MEDS: 0.9% NaCl Peripheral Flush Adult/Peds IV ×2 (06:21→22:05)
[2018-11-25] MEDS: Furosemide 100 MG/10 ML Vial 80 MG IV ×3 (06:21→22:00)
[2018-11-25 06:39] LABS: International Normalized Ratio 1.4; Prothrombin Time (Protime)PT. 17.3 SECONDS (11.7-14.9)
[2018-11-25 06:40] LABS: Bedside Glucose 182 mg/dL (70-110)
[2018-11-25 06:55] LABS: Partial Thromboplast Time 33.7 Seconds (24.1-36.2)
[2018-11-25 07:00] LABS: Anion Gap 4 (5-15); BUN 42 mg/dL (7-18); BUN/Creat Ratio 44.6 RATIO (10-20); Chloride 93 mmol/L (98-107); Creatinine, Serum 0.94 mg/dL (0.55-1.02); EST Glomerular Filtration Rate 62 mL/min (>60); Est Glom Filt Rate - Afr Amer 75 mL/min (>60); Estimated Creatinine Clearance 44.75 ml/min; Glucose 190 mg/dL (74-106); Potassium 3.4 mmol/L (3.5-5.1); Sodium Level 135 mmol/L (136-145)
[2018-11-25 07:28] LABS: Absolute Lymphocyte Count 1.56 X10^3/ul (0.83-4.51); Absolute Neutrophil Count 3.7 X10^3/uL (2.0-7.7); Basophil# 0.02 X10^3/uL; Basophil% 0.3 % (0-1); Eosinophil# 0.41 X10^3/uL; Eosinophils% 6.4 % (0-5); Hematocrit 28.5 % (37-47); Hemoglobin 8.4 g/dl (12.0-15.0); Lymphocyte # 1.56 X10^3/ul (4.0); Lymphocyte % 24.5 % (19-41); Mean Corp Hgb Conc 29.5 g/gl (32-36); Mean Corpuscular Hgb 27.7 pg (27.0-32.0); Mean Corpuscular Volume 94.1 fL (81-99); Mean Platelet Vol. 9.2 fl (6.2-12.0); Monocyte# 0.68 X10^3/uL; Monocyte% 10.7 % (0-10); Neutrophil # 3.69 X10^3/uL (2.7-7.7); Neutrophil % 57.9 % (47-70); Platelet Count 341 K/mm3 (150-450); RBC Distribution Width CV 16.2 % (11.6-14.6); RBC Distribution Width SD 55.5 fl (35.1-43.9); Red Blood Count 3.03 M/mm3 (4.2-5.4); White Blood Count 6.4 K/mm3 (4.4-11.0)
[2018-11-25 07:29] LABS: POSITIVE COUNT NO; POSITIVE DIFFERENTIAL NO; POSITIVE MORPHOLOGY NO
[2018-11-25] MEDS: Acetaminophen 325 MG Tablet 650 MG PO ×2 (08:13→14:50)
[2018-11-25] MEDS: Insulin Lispro 100 UNIT/ML INSULN.PEN SC ×6 (08:14→17:22)
--- NOTE | 2018-11-25 08:15 | PN.CARD_ITS ---
Subjectve: Patient seen and evaluated. Appears to be doing better. Awaiting thoracentesis. Objective: Vital Signs Temp Pulse Resp BP Pulse Ox 98.4 F 94 20 H 118/63 96 11/25/18 06:15 11/25/18 07:27 11/25/18 06:15 11/25/18 06:15 11/25/18 06:15 Oxygen Flow Rate (L/min) 2 Oxygen Delivery Method Nasal Cannula Weight: 261 lb 14.546 oz Body Mass Index (BMI) 42.1 Intake and Output for Last 24 Hours 11/23/18 11/24/18 11/25/18 23:59 23:59 23:59 Intake Total 850 / 850 980 / 980 120 / 120 Output Total 2375 / 2375 1700 / 1700 Balance -1525 / -1525 -720 / -720 120 / 120 General: Awake, Alert, Oriented x 3 HEENT: PERRL, EOMI, Sclera Non Icteric Neck: Supple, Good ROM, No Lymph Node Enlargement Lungs: Diminished Right Base Cardiovascular: Regular Rhythm, Normal S1, Normal S2, No Murmurs, No Rubs, No Gallops Vascular: No Carotid Bruits, Normal Femoral Pulses, Normal Radial Pulses, Normal Dorsalis Pedal Pulse, Normal Posterior Tibial Pulses Abdomen: Bowel Sounds Present, Soft, Non Tender, No HSM, No Organomegaly Extremities: No Cyanosis, No Clubbing, Bilateral Edema +1 Neurological: No Focal Motor or Sensory Deficit 11/25/18 06:10: WBC 6.4, RBC 3.03 L, Hgb 8.4 L, Hct 28.5 L, MCV 94.1, MCH 27.7, MCHC 29.5 L, RDW 16.2 H, RDW Differential 55.5 H, Plt Count 341, MPV 9.2, I mmature Gran % (Auto) 0.200, Neut % (Auto) 57.9, Lymph % (Auto) 24.5, [place] % (Auto) 10.7 H, Eos % (Auto) 6.4 H, Baso % (Auto) 0.3, Absolute Neuts (auto) 3.7, Total Counted Not Reportable 11/25/18 06:10: APTT 33.7 11/25/18 06:12: PT 17.3 H, INR 1.4 11/25/18 06:12: Sodium 135 L, Potassium 3.4 L, Chloride 93 L, Carbon Dioxide 38.0 H, Anion Gap 4 L, BUN 42 H, Creatinine 0.94, Est GFR (MDRD) Af Amer 75, Est GFR (MDRD) Non-Af 62, BUN/Creatinine Ratio 44.6 H, Glucose 190 H, Calcium 9.0 Rhythm: EKG: ECHO: Stress Test: Cardiac Cath: PCI: CT Surgery: Holter monitor: EPS: PPM: CXR: Chest CT Scan: Medical Necessity - Tobacco Use Smoking Status: Never smoker Assessment/Plan 1. Diastolic heart failure * Patient presents status post mitral valve replacement and is noted to be in diastolic heart failure. She is also noted to be anemic which may have contributed to the heart failure. * She will require a thoracentesis hopefully this afternoon and then will continue with her diuretics and hopefully discharge in the next few days. Her echocardiogram demonstrated preserved ejection fraction with an adequately seated prosthetic mitral valve * May need to repeat echocardiogram in a few days to reassess right ventricular pressures. 2. Status post mitral valve replacement * Patient is status post mitral valve replacement * Prosthetic mitral valve appears to be functioning well. Would not recommend any changes at this time. Will resume Coumadin at the appropriate time after thoracentesis. * 3. Aortic valve disease * Patient has mild aortic valve disease and will continue to follow. * * 4. Status post permanent pacemaker implantation * Patient is status post permanent pacemaker implantation. This appears to be functioning well I would not recommend that we make any changes. She will follow-up in our pacemaker clinic. * Thank you for allowing me to participate in the care of your patient. Please don't hesitate to call if any issues arise
[2018-11-25] MEDS: glipiZIDE 5 MG Tablet PO (08:16)
[2018-11-25] MEDS: Ferrous Sulfate 325 MG Tablet PO ×2 (08:16→17:22)
[2018-11-25] MEDS: Nystatin Ointment 1 APPLIC TOPICAL ×2 (08:16→22:02)
[2018-11-25] MEDS: Glucerna Shake 120 ML LIQUID 60 ML PO ×3 (08:17→22:00)
[2018-11-25 11:16] LABS: Bedside Glucose 220 mg/dL (70-110)
--- NOTE | 2018-11-25 12:07 | US_ITS ---
Ultrasound guidance and following proper antiseptic preparation and local anesthesia a 6 [place] draining catheter was inserted in the right pleural cavity, 470ml of serosanguineous fluid were aspirated.. The patient tolerated the procedure well. There is minimal amount of pleural effusion on the left side that was not drained at this time. US/Thoracentesis W US IMPRESSION: Uneventful right-sided thoracentesis Electronically Signed: Esau Levy, at 16:19 EDT Tel , Service support ,
--- NOTE | 2018-11-25 13:52 | NURSING ---
Pt is currently off the unit for thoracentesis at this time.
--- NOTE | 2018-11-25 14:26 | RAD_ITS ---
STUDY: X-RAY CHEST REASON FOR EXAM: Female, 73 years old. Shortness of breath, chest pain. TECHNIQUE: Single AP portable view of the chest. COMPARISON: 11/24/2018 FINDINGS: Left subclavian dual-lead pacemaker which is unchanged. Status post median sternotomy. Some bibasilar discoid atelectasis. No pneumothorax after right thoracentesis. Tiny bilateral pleural effusions. There is moderate cardiac enlargement. Normal mediastinum and colleen. Normal visualized pulmonary arteries. Normal visualized aortic arch and descending thoracic aorta. Normal visualized thoracic spine. Normal visualized ribs, clavicles, and shoulders. There is no demonstrated abnormality of the visualized soft tissue structures of the upper abdomen. RAD/Chest 1 View (Portable) IMPRESSION: No pneumothorax after right thoracentesis. Electronically Signed: Hilario Albarran MD at 15:55 EDT Tel , Service support ,
--- NOTE | 2018-11-25 14:28 | CASEMGMT ---
RN ELISE Note: Reviewed PT/OT notes. further therapy recommended. RN ELISE intro role to patient, in room. Pt is not feeling well, Deferred conversation re: possible need for [facility] on dc. Micheal JONESN RN ACM
[2018-11-25 17:31] LABS: Bedside Glucose 162 mg/dL (70-110)
--- NOTE | 2018-11-25 21:46 | PCM.PROGNOTE ---
Subjective: Remains afebrile. Vital signs are stable. Fluid balance on 11/24/2018 is -720. Fluid balance since admission is -2770. She had 470 cc of right pleural fluid removed today. All lab was personally reviewed. White blood cell count is 6.4 with an unremarkable differential except for a mild increase of eosinophils to 6.4%. Hemoglobin is stable at 8.4. INR today is 1.4. Potassium is low at 3.4 and supplementation has been ordered. The serum bicarb is now 38 due to contraction alkalosis. Creatinine is 0.94 today. She complained of increased shortness of breath and chest pain after returning from radiology and a stat portable chest x-ray showed no evidence of pneumothorax. Right pleural effusion was significantly decreased. When I examined her approximately 1 hour later she stated her breathing was much better. Blood sugars are coming under better control. - Physical Exam General: Alert, Oriented x3, Cooperative, No apparent distress Oral: Moist Mucosa Lungs: Rales - in both bases, much better air exchange in the R base after thoracentesis, no rhonchi and no wheezes. Cardiovascular: Regular rate, Regular Rhythm, No murmurs, No Gallop, - - telemetry showed primarily paced rhythm Abdomen: Bowel Sounds Present, Soft, Non Tender, Non-Distended, Obese Extremities: Edema - of both LE's but, she at least has her legs elevated today Neurological: Cranial nerves II-XII grossly intact, Neuro grossly intact Psych/Mental Status: Normal Affect, Appropriate Vital Signs Temp Pulse Resp BP Pulse Ox 98.1 F 102 H 18 129/61 H 97 11/25/18 18:00 11/25/18 19:00 11/25/18 18:00 11/25/18 18:00 11/25/18 18:00 Oxygen Flow Rate (L/min) [3] 2 Oxygen Flow Rate (L/min) [2] 2 Oxygen Flow Rate (L/min) [1 ( 2 Initial Baseline)] Oxygen Flow Rate (L/min) 2 Oxygen Delivery Method [3] Room Air Oxygen Delivery Method [2] Nasal Cannula Oxygen Delivery Method [1 ( Nasal Cannula Initial Baseline)] Oxygen Delivery Method Nasal Cannula Weight: 261 lb 14.546 oz Body Mass Index (BMI) 42.1 Intake and Output for Last 24 Hours 11/23/18 11/24/18 11/25/18 23:59 23:59 23:59 Intake Total 850 / 850 980 / 980 1080 / 1080 Output Total 2375 / 2375 1700 / 1700 350 / 350 Balance -1525 / -1525 -720 / -720 730 / 730 Laboratory Tests Past 24 Hrs 11/25/18 11/25/18 11/25/18 06:10 06:10 06:12 WBC 6.4 RBC 3.03 L Hgb 8.4 L Hct 28.5 L MCV 94.1 MCH 27.7 MCHC 29.5 L RDW 16.2 H RDW Differential 55.5 H Plt Count 341 MPV 9.2 Immature Gran % (Auto) 0.200 Neut % (Auto) 57.9 Lymph % (Auto) 24.5 [place] % (Auto) 10.7 H Eos % (Auto) 6.4 H Baso % (Auto) 0.3 Absolute Neuts (auto) 3.7 Absolute Lymphs (auto) 1.56 Total Counted Not Reportable PT 17.3 H INR 1.4 APTT 33.7 Sodium Potassium Chloride Carbon Dioxide Anion Gap BUN Creatinine Estim Creat Clear Calc Est GFR (MDRD) Af Amer Est GFR (MDRD) Non-Af BUN/Creatinine Ratio Glucose Calcium 11/25/18 06:12 WBC RBC Hgb Hct MCV MCH MCHC RDW RDW Differential Plt Count MPV Immature Gran % (Auto) Neut % (Auto) Lymph % (Auto) [place] % (Auto) Eos % (Auto) Baso % (Auto) Absolute Neuts (auto) Absolute Lymphs (auto) Total Counted PT INR APTT Sodium 135 L Potassium 3.4 L Chloride 93 L Carbon Dioxide 38.0 H Anion Gap 4 L BUN 42 H Creatinine 0.94 Estim Creat Clear Calc 44.75 Est GFR (MDRD) Af Amer 75 Est GFR (MDRD) Non-Af 62 BUN/Creatinine Ratio 44.6 H Glucose 190 H Calcium 9.0 POC Glucose 11/25/18 11/25/18 11/25/18 17:13 11:07 06:31 POC Glucose 162 H 220 H 182 H 11/24/18 22:43 POC Glucose 229 H Medical Necessity - Tobacco Use Smoking Status: Never smoker Assessment/Plan All Active Problems (Last Reviewed 11/22/18 @ 03:40 by Jalil Arredondo MD) S/P mitral valve replacement with bioprosthetic valve (Acute) Bilateral pleural effusion (Resolved) Secondary pulmonary arterial hypertension (Resolved) Non-rheumatic tricuspid valve insufficiency (Resolved) Non-rheumatic mitral valve stenosis (Resolved) Non-rheumatic aortic stenosis (Resolved) Acute diastolic (congestive) heart failure (Resolved) Essential (primary) hypertension (Resolved) Chest pain (Resolved) Hypertensive emergency (Resolved) Impressions 1. Acute on chronic diastolic congestive heart failure 2. Recent bioprosthetic mitral valve replacement -spent 2 weeks at [facility], 1 week in the ICU 3. Recent pacemaker implantation 4. Anemia-likely secondary to recent blood loss related to surgery 5. Mild elevation in troponin 6. Diabetes mellitus type 2-not adequately controlled 7. Obesity 8. Moderate right sized pleural effusion 9. Hyponatremia - likely due to CHF 10. Metabolic alkalosis secondary to contraction alkalosis 11. Subtherapeutic INR 12. Severe pulmonary hypertension 13. Moderate concentric left ventricular hypertrophy 14. Chronic renal failure stage III 15. Deconditioning secondary to a 2-week stay at [facility], recent surgery and a 7-day stay in the ICU Restart coumadin in the AM continue PT/OT - she is deconditioned and I suspect she is going to need SNF at [place] The serum bicarb is climbing and may need to back off the lasix soon She may benefit from surepres wraps to the LE's to better control the LE edema Recheck lab in the AM I reviewed Dr. Zaragoza's note and appreciate his input
[2018-11-25] MEDS: Acetaminophen 500 MG Tablet 1000 MG PO (22:01)
[2018-11-25] MEDS: Mirtazapine 15 MG Tablet PO (22:04)
[2018-11-25 22:46] LABS: Bedside Glucose 184 mg/dL (70-110)
[2018-11-26] VITALS (9 sets, daily range): BP systolic 118–166; BP diastolic 64–81; PULSE 65–101; RESP 16–18; TEMP 36.7–36.9; O2SAT 97–98
[2018-11-26] MEDS: 0.9% NaCl Peripheral Flush Adult/Peds IV ×2 (06:29→22:21)
[2018-11-26] MEDS: Furosemide 100 MG/10 ML Vial 80 MG IV ×3 (06:29→22:17)
[2018-11-26 06:50] LABS: Bedside Glucose 151 mg/dL (70-110)
[2018-11-26 06:50] LABS: International Normalized Ratio 1.3; Prothrombin Time (Protime)PT. 15.8 SECONDS (11.7-14.9)
[2018-11-26 06:56] LABS: Anion Gap 2 (5-15); BUN 42 mg/dL (7-18); BUN/Creat Ratio 43.3 RATIO (10-20); Calcium,Total 8.8 mg/dL (8.5-10.1); Chloride 94 mmol/L (98-107); Creatinine, Serum 0.97 mg/dL (0.55-1.02); EST Glomerular Filtration Rate 60 mL/min (>60); Est Glom Filt Rate - Afr Amer 73 mL/min (>60); Estimated Creatinine Clearance 43.37 ml/min; Glucose 135 mg/dL (74-106); Magnesium 2.1 mg/dL (1.6-2.6); Potassium 3.6 mmol/L (3.5-5.1); Sodium Level 135 mmol/L (136-145)
--- NOTE | 2018-11-26 07:49 | PN.CARD_ITS ---
Subjectve: Patient seen and evaluated. Appears to be doing better. Underwent thoracentesis yesterday. Objective: Vital Signs Temp Pulse Resp BP Pulse Ox 98.1 F 101 H 16 166/81 H 98 11/26/18 03:50 11/26/18 07:35 11/26/18 03:50 11/26/18 03:50 11/26/18 03:50 Oxygen Flow Rate (L/min) [3] 2 Oxygen Flow Rate (L/min) [2] 2 Oxygen Flow Rate (L/min) [1 ( 2 Initial Baseline)] Oxygen Flow Rate (L/min) 1 Oxygen Delivery Method [3] Room Air Oxygen Delivery Method [2] Nasal Cannula Oxygen Delivery Method [1 ( Nasal Cannula Initial Baseline)] Oxygen Delivery Method Nasal Cannula Weight: 261 lb 14.546 oz Body Mass Index (BMI) 42.1 Intake and Output for Last 24 Hours 11/24/18 11/25/18 11/26/18 23:59 23:59 23:59 Intake Total 980 / 980 1655 / 1655 50 / 50 Output Total 1700 / 1700 651 / 651 200 / 200 Balance -720 / -720 1004 / 1004 -150 / -150 General: Awake, Alert, Oriented x 3, Ill Appearing HEENT: PERRL, EOMI, Sclera Non Icteric Neck: Supple, Good ROM, No Lymph Node Enlargement Lungs: Diminished Eddie Bases Cardiovascular: Regular Rhythm, Normal S1, Normal S2, No Murmurs, No Rubs, No Gallops Vascular: No Carotid Bruits, Normal Femoral Pulses, Normal Radial Pulses, Normal Dorsalis Pedal Pulse, Normal Posterior Tibial Pulses Abdomen: Bowel Sounds Present, Soft, Non Tender, No HSM, No Organomegaly Extremities: No Cyanosis, No Clubbing, Bilateral Edema +1 Musculoskeletal: No Erythema Skin: No Rashes Lymphatic: No Lymph Node Enlargement Neurological: No Focal Motor or Sensory Deficit Psych/Mental Status: Appropriate 11/26/18 06:15: PT 15.8 H, INR 1.3 11/26/18 06:15: Sodium 135 L, Potassium 3.6, Chloride 94 L, Carbon Dioxide 39.0 H, Anion Gap 2 L, BUN 42 H, Creatinine 0.97, Est GFR (MDRD) Af Amer 73, Est GFR (MDRD) Non-Af 60, BUN/Creatinine Ratio 43.3 H, Glucose 135 H, Calcium 8.8, Magnesium 2.1 Rhythm: EKG: ECHO: Stress Test: Cardiac Cath: PCI: CT Surgery: Holter monitor: EPS: PPM: CXR: Chest CT Scan: Medical Necessity - Tobacco Use Smoking Status: Never smoker Assessment/Plan 1. Diastolic heart failure * Patient presents status post mitral valve replacement and is noted to be in diastolic heart failure. She is also noted to be anemic which may have contributed to the heart failure. * She did undergo a thoracentesis. Breathing is marginally improved x-ray is improved. Would continue another day of intravenous diuretics. Her echocardiogram demonstrated preserved ejection fraction with an adequately seated prosthetic mitral valve * May need to repeat echocardiogram in a few days to reassess right ventricular pressures. 2. Status post mitral valve replacement * Patient is status post mitral valve replacement * Prosthetic mitral valve appears to be functioning well. Would not recommend any changes at this time. Will resume Coumadin at the appropriate time after thoracentesis. * 3. Aortic valve disease * Patient has mild aortic valve disease and will continue to follow. * * 4. Status post permanent pacemaker implantation * Patient is status post permanent pacemaker implantation. This appears to be functioning well I would not recommend that we make any changes. She will follow-up in our pacemaker clinic. * * She definitely would need to be in a intermediate facility for a few days after discharge * Thank you for allowing me to participate in the care of your patient. Please don't hesitate to call if any issues arise
[2018-11-26] MEDS: Insulin Lispro 100 UNIT/ML INSULN.PEN SC ×5 (08:43→16:53)
[2018-11-26] MEDS: Ferrous Sulfate 325 MG Tablet PO ×2 (08:44→16:51)
[2018-11-26] MEDS: glipiZIDE 5 MG Tablet PO (08:44)
[2018-11-26] MEDS: Aspirin E.C. 81 MG Tablet PO (08:45)
[2018-11-26] MEDS: Nystatin Ointment 1 APPLIC TOPICAL (08:45)
[2018-11-26] MEDS: Glucerna Shake 120 ML LIQUID 60 ML PO ×4 (08:45→22:15)
--- NOTE | 2018-11-26 11:12 | CASEMGMT ---
Addendum entered by Kati Steele 11/26/18 11:32: OT is also recommending further therapy. states they are agreeable to OT services with [facility] as well. Original Note: NATHEN OLIVARES NOTE: Therapy notes have been reviewed. To room to talk with pt. Pt states she is currently receiving [facility] services but does not remember the name of the agency. She states she currently has a nurse that comes to see her but does not have therapy services and she does not remember the name of the agency who provides services. Pt states she is agreeable with therapy services being added. Spoke with pt's in the waiting room who gave this NATHEN OLIVARES phone number to contact nurse Edwina from the [facility] agency. Call placed to Edwina @ [phone]. Edwina confirms pt is active with [facility] and is receiving halfway services. She states that they have an agreement for payment of $150 per visit. Edwina made aware PT will be added and that pt and are agreeable. Order placed for resumption of halfway services and PT eval and treat to be added. [facility]: PH: [phone] . Hema BLAKE RN, CM
--- NOTE | 2018-11-26 11:21 | PCM.PN.HOSP ---
Subjective: Patient is sitting in the chair. Patient had US guided thoracocentesis, 470 mL serosanguineous fluid on 11/25. She had a recent bioprosthetic mitral valve replacement on November 03 in [facility]. Vitals/I&O's: Vital Signs Temp Pulse Resp BP Pulse Ox 98.1 F 87 18 131/67 H 97 11/26/18 09:49 11/26/18 09:49 11/26/18 09:49 11/26/18 09:49 11/26/18 09:49 Oxygen Flow Rate (L/min) [3] 2 Oxygen Flow Rate (L/min) [2] 2 Oxygen Flow Rate (L/min) [1 ( 2 Initial Baseline)] Oxygen Flow Rate (L/min) 2 Oxygen Delivery Method [3] Room Air Oxygen Delivery Method [2] Nasal Cannula Oxygen Delivery Method [1 ( Nasal Cannula Initial Baseline)] Oxygen Delivery Method Nasal Cannula Weight: 261 lb 14.546 oz Body Mass Index (BMI) 42.1 Intake and Output for Last 24 Hours 11/24/18 11/25/18 11/26/18 23:59 23:59 23:59 Intake Total 980 / 980 1655 / 1655 50 / 50 Output Total 1700 / 1700 651 / 651 200 / 200 Balance -720 / -720 1004 / 1004 -150 / -150 General: Alert, Oriented x3, Cooperative HEENT: Atraumatic, PERRLA, EOMI, Normocephalic Neck: Supple, No JVD, Negative Carotid Bruits Lungs: Clear to auscultation, Normal air movement Cardiovascular: Regular rate, Regular Rhythm, Normal S1, Normal S2, No murmurs Abdomen: Bowel Sounds Present, Soft, Non Tender, Non-Distended Extremities: Capillary Refill Less than 3 Seconds, Edema, - - Has Nasir wrap bandage in lower legs Skin: No rashes, No breakdown Musculoskeletal: No Tenderness to Palpation of Joints or Extremities, Arthritic Changes Neurological: Cranial nerves II-XII grossly intact, Deep Tendon Reflexes 2+/4 and Symmetrical, Neuro grossly intact Psych/Mental Status: Normal Affect, Appropriate Laboratory Results 11/25/18 17:13: POC Glucose 162 H 11/25/18 21:56: POC Glucose 184 H 11/26/18 06:15: PT 15.8 H, INR 1.3 11/26/18 06:15: Sodium 135 L, Potassium 3.6, Chloride 94 L, Carbon Dioxide 39.0 H, Anion Gap 2 L, BUN 42 H, Creatinine 0.97, Estim Creat Clear Calc 43.37, Est GFR (MDRD) Af Amer 73, Est GFR (MDRD) Non-Af 60, BUN/Creatinine Ratio 43.3 H, Glucose 135 H, Calcium 8.8, Magnesium 2.1 11/26/18 06:25: POC Glucose 151 H Current Medications Acetaminophen (Tylenol) 650 mg PO Q6H PRN PRN PRN Reason: Mild pain 1-3/Temp > 100.7 F Last Admin: 11/25/18 14:50 Dose: 650 mg Documented by: Acetaminophen (Tylenol) 1,000 mg PO QHS [facility] Last Admin: 11/25/18 22:01 Dose: 1,000 mg Documented by: Aspirin (Ecotrin) 81 mg PO DAILY [facility] Last Admin: 11/26/18 08:45 Dose: 81 mg Documented by: Dextrose (D50w Syringe) 0 gm IV X1 PRN; Protocol PRN Reason: Hypoglycemia Ferrous Sulfate (Ferrous Sulfate) 325 mg PO BIDCM [facility] Last Admin: 11/26/18 08:44 Dose: 325 mg Documented by: Furosemide (Lasix) 80 mg IV Q8 [facility] Last Admin: 11/26/18 06:29 Dose: 80 mg Documented by: Glipizide (Glucotrol) 5 mg PO DAILY@0730 [facility] Last Admin: 11/26/18 08:44 Dose: 5 mg Documented by: Glucagon () 1 mg IM .X1 PRN PRN Reason: Hypoglycemia Sodium Chloride () 250 mls @ 15 mls/hr IV .[id number] PRN PRN Reason: SALINE FLUSH Insulin Glargine (Lantus (Bkc)) 40 units SC BREAKFAST [facility] Last Admin: 11/26/18 08:45 Dose: 40 u Documented by: Insulin Human Lispro (Humalog Kwikpen (Bkc)) 0 unit SC TIDAC [facility] Last Admin: 11/26/18 11:19 Dose: 7 u Documented by: Insulin Human Lispro (Humalog Kwikpen (Bkc)) 0 unit SC TIDAC [facility]; Protocol Last Admin: 11/26/18 11:19 Dose: 3 u Documented by: Ipratropium [place] (Atrovent Nasal [place] (G)) 2 spray NASAL TID [facility] Last Admin: 11/26/18 06:37 Dose: Not Given Documented by: Mirtazapine (Remeron) 15 mg PO QHS [facility] Last Admin: 11/25/18 22:04 Dose: 15 mg Documented by: Nitroglycerin (Nitrostat) 0.4 mg SUBLINGUAL Q5M PRN PRN Reason: Chest pain Last Admin: 11/22/18 01:13 Dose: 0.4 mg Documented by: Nutritional Formula (Lactose Free) (Glucerna Shake) 60 ml PO 4X/DAY [facility] Last Admin: 11/26/18 08:45 Dose: 60 ml Documented by: Nystatin (Mycostatin) 1 applic TOPICAL BID [facility]; Protocol Last Admin: 11/26/18 08:45 Dose: 1 applicatio Documented by: Ondansetron HCl (Zofran) 4 mg IV Q8H PRN PRN PRN Reason: NAUSEA/VOMITING Sodium Chloride () 5 - 15 ml IV UD PRN PRN Reason: SALINE FLUSH Last Admin: 11/26/18 06:29 Dose: 10 ml Documented by: Medical Necessity - Tobacco Use Smoking Status: Never smoker Assessment/Plan All Active Problems (Last Reviewed 11/22/18 @ 03:40 by Jalil Arredondo MD) S/P mitral valve replacement with bioprosthetic valve (Acute) Bilateral pleural effusion (Resolved) Secondary pulmonary arterial hypertension (Resolved) Non-rheumatic tricuspid valve insufficiency (Resolved) Non-rheumatic mitral valve stenosis (Resolved) Non-rheumatic aortic stenosis (Resolved) Acute diastolic (congestive) heart failure (Resolved) Essential (primary) hypertension (Resolved) Chest pain (Resolved) Hypertensive emergency (Resolved) This is a 73-year-old female with history of heart failure with preserved EF and recent bioprosthetic MVR on November 03, 2018 was admitted with worsening of shortness of breath started after replacement of mitral valve along with orthopnea and PND and bilateral lower extremity. She also complained of dry cough and chest tightness on the day of presentation to ED. 1 acute on chronic heart failure with preserved EF/chronic diastolic heart failure: 2D echo was done and shows bioprosthetic mitral valve in good position. Echo on 11/22/2018 reported as moderate concentric LVH with normal systolic function. EF 65%. LA severely enlarged. RA mildly enlarged. Mean transmitral valve gradient 15 mmHg with bioprosthetic mitral valve not well-visualized. 1-2+ TR. Moderate diffuse aortic valve thickening with mild left ear. Aortic valve gradient mean 15.90 mmHg. Patient was seen by store manager and assessment is bioprosthetic mitral valve functioning well. Patient had 470 mL right ultrasound-guided thoracocentesis on 11/25. Coumadin resumed. 2. Valvular heart disease bioprosthetic mitral valve replacement on 11/03/2018: Mild aortic valve disease/left ear. As mentioned above 3. Recent permanent pacemaker implantation: Functioning well. 4. Moderate right-sided pleural effusion secondary to heart failure: As mentioned above 5. CKD stage III: Creatinine is stable 6. Diabetes mellitus type 2: Glucose is not adequately controlled. Continue Accu-Cheks before meals and at bedtime. A1c 7.7%. 7. Acute anemia on baseline anemia of chronic disease, most probably from recent surgery: During this hospital care, her H&H between 8 to 9 g%. Baseline hemoglobin 9.4 in June 2018. Ferrous sulfate 325 mg twice daily. Ferrous sulfate 200 mg IV 1 dose ordered. DVT prophylaxis: On Coumadin Laboratory Results 11/25/18 17:13: POC Glucose 162 H 11/25/18 21:56: POC Glucose 184 H 11/26/18 06:15: PT 15.8 H, INR 1.3 11/26/18 06:15: Sodium 135 L, Potassium 3.6, Chloride 94 L, Carbon Dioxide 39.0 H, Anion Gap 2 L, BUN 42 H, Creatinine 0.97, Estim Creat Clear Calc 43.37, Est GFR (MDRD) Af Amer 73, Est GFR (MDRD) Non-Af 60, BUN/Creatinine Ratio 43.3 H, Glucose 135 H, Calcium 8.8, Magnesium 2.1 11/26/18 06:25: POC Glucose 151 H 11/26/18 11:17: POC Glucose 246 H Code Visit Inpatient E&M: 84002 [facility] Hosp L3
[2018-11-26 11:41] LABS: Bedside Glucose 246 mg/dL (70-110)
[2018-11-26] MEDS: Ipratropium Bromide 0.06% NASAL SPRAY 2 SPRAY NASAL ×2 (13:27→22:15)
[2018-11-26] MEDS: Fluconazole 100 MG Tablet 200 MG PO (16:56)
[2018-11-26 17:05] LABS: Bedside Glucose 108 mg/dL (70-110)
[2018-11-26] MEDS: Mirtazapine 15 MG Tablet PO (22:25)
[2018-11-26] MEDS: Acetaminophen 500 MG Tablet 1000 MG PO (22:25)
[2018-11-26] MEDS: Nystatin Powder 15gm Bottle 1 APPLIC TOPICAL (22:27)
[2018-11-27] VITALS (8 sets, daily range): BP systolic 112–127; BP diastolic 47–60; PULSE 69–96; RESP 17–18; TEMP 36.6–36.9; O2SAT 93–97
[2018-11-27 00:11] LABS: Bedside Glucose 75 mg/dL (70-110)
[2018-11-27] MEDS: Ipratropium Bromide 0.06% NASAL SPRAY 2 SPRAY NASAL ×2 (05:46→14:18)
[2018-11-27] MEDS: Furosemide 100 MG/10 ML Vial 80 MG IV (05:46)
[2018-11-27 06:02] LABS: Absolute Lymphocyte Count 1.43 X10^3/ul (0.83-4.51); Absolute Neutrophil Count 2.8 X10^3/uL (2.0-7.7); Basophil# 0.03 X10^3/uL; Basophil% 0.5 % (0-1); Eosinophil# 0.56 X10^3/uL; Eosinophils% 10.2 % (0-5); Hematocrit 27.9 % (37-47); Hemoglobin 8.3 g/dl (12.0-15.0); Lymphocyte # 1.43 X10^3/ul (4.0); Lymphocyte % 26.1 % (19-41); Mean Corp Hgb Conc 29.7 g/gl (32-36); Mean Corpuscular Hgb 28.2 pg (27.0-32.0); Mean Corpuscular Volume 94.9 fL (81-99); Mean Platelet Vol. 9.3 fl (6.2-12.0); Monocyte# 0.65 X10^3/uL; Monocyte% 11.9 % (0-10); Neutrophil # 2.79 X10^3/uL (2.7-7.7); Neutrophil % 50.9 % (47-70); POSITIVE COUNT NO; POSITIVE DIFFERENTIAL NO; Platelet Count 295 K/mm3 (150-450); RBC Distribution Width CV 16.4 % (11.6-14.6); RBC Distribution Width SD 56.7 fl (35.1-43.9); Red Blood Count 2.94 M/mm3 (4.2-5.4); White Blood Count 5.5 K/mm3 (4.4-11.0)
[2018-11-27 06:03] LABS: POSITIVE MORPHOLOGY NO
[2018-11-27 06:22] LABS: International Normalized Ratio 1.2; Prothrombin Time (Protime)PT. 14.8 SECONDS (11.7-14.9)
[2018-11-27] MEDS: glipiZIDE 5 MG Tablet PO (06:54)
[2018-11-27 07:05] LABS: Bedside Glucose 75 mg/dL (70-110)
[2018-11-27] MEDS: Nystatin Powder 15gm Bottle 1 APPLIC TOPICAL (08:54)
--- NOTE | 2018-11-27 08:54 | PN.CARD_ITS ---
Subjectve: Patient seen and evaluated. Appears to be doing better. Objective: Vital Signs Temp Pulse Resp BP Pulse Ox 97.9 F 71 18 113/60 97 11/27/18 03:42 11/27/18 07:27 11/27/18 03:42 11/27/18 03:42 11/27/18 07:30 Oxygen Flow Rate (L/min) [3] 2 Oxygen Flow Rate (L/min) [2] 2 Oxygen Flow Rate (L/min) [1 ( 2 Initial Baseline)] Oxygen Flow Rate (L/min) 2 Oxygen Delivery Method [3] Room Air Oxygen Delivery Method [2] Nasal Cannula Oxygen Delivery Method [1 ( Nasal Cannula Initial Baseline)] Oxygen Delivery Method Nasal Cannula Weight: 261 lb 14.546 oz Body Mass Index (BMI) 42.1 Intake and Output for Last 24 Hours 11/25/18 11/26/18 11/27/18 23:59 23:59 23:59 Intake Total 1655 / 1655 1088 / 1088 60 / 60 Output Total 651 / 651 1050 / 1050 Balance 1004 / 1004 38 / 38 60 / 60 General: Awake, Alert, Oriented x 3 HEENT: PERRL, EOMI, Sclera Non Icteric Neck: Supple, Good ROM, No Lymph Node Enlargement Lungs: Clear to auscultation Cardiovascular: Regular Rhythm, Normal S1, Normal S2, No Murmurs, No Rubs, No Gallops Vascular: No Carotid Bruits, Normal Femoral Pulses, Normal Radial Pulses, Normal Dorsalis Pedal Pulse, Normal Posterior Tibial Pulses Abdomen: Bowel Sounds Present, Soft, Non Tender, No HSM, No Organomegaly Extremities: No Cyanosis, No Clubbing, No edema Neurological: No Focal Motor or Sensory Deficit 11/27/18 05:25: PT 14.8, INR 1.2 11/27/18 05:25: WBC 5.5, RBC 2.94 L, Hgb 8.3 L, Hct 27.9 L, MCV 94.9, MCH 28.2, MCHC 29.7 L, RDW 16.4 H, RDW Differential 56.7 H, Plt Count 295, MPV 9.3, Immature Gran % (Auto) 0.400, Neut % (Auto) 50.9, Lymph % (Auto) 26.1, Mathews % (Auto) 11.9 H, Eos % (Auto) 10.2 H, Baso % (Auto) 0.5, Absolute Neuts (auto) 2.8, Total Counted Not Reportable Rhythm: EKG: ECHO: Stress Test: Cardiac Cath: PCI: CT Surgery: Holter monitor: EPS: PPM: CXR: Chest CT Scan: Medical Necessity - Tobacco Use Smoking Status: Never smoker Assessment/Plan 1. Diastolic heart failure * Patient presents status post mitral valve replacement and is noted to be in diastolic heart failure. She is also noted to be anemic which may have contributed to the heart failure. She has received some iron infusion. She overall feels better this morning. * She did undergo a thoracentesis. Breathing is marginally improved x-ray is improved. Would continue another day of intravenous diuretics. Her echocardiogram demonstrated preserved ejection fraction with an adequately seated prosthetic mitral valve * May need to repeat echocardiogram in a few days to reassess right ventricular pressures. 2. Status post mitral valve replacement * Patient is status post mitral valve replacement * Prosthetic mitral valve appears to be functioning well. Would not recommend any changes at this time. Will resume Coumadin at the appropriate time after thoracentesis. * 3. Aortic valve disease * Patient has mild aortic valve disease and will continue to follow. * * 4. Status post permanent pacemaker implantation * Patient is status post permanent pacemaker implantation. This appears to be functioning well I would not recommend that we make any changes. She will follow-up in our pacemaker clinic. * * She definitely would need to be in a chcf facility for a few days after discharge * Thank you for allowing me to participate in the care of your patient. Please don't hesitate to call if any issues arise
[2018-11-27] MEDS: Glucerna Shake 120 ML LIQUID 60 ML PO ×2 (08:55→14:17)
[2018-11-27] MEDS: Fluconazole 100 MG Tablet 200 MG PO (08:55)
[2018-11-27] MEDS: Aspirin E.C. 81 MG Tablet PO (08:55)
[2018-11-27] MEDS: Ferrous Sulfate 325 MG Tablet PO (08:55)
[2018-11-27 11:15] LABS: Bedside Glucose 212 mg/dL (70-110)
[2018-11-27] MEDS: Insulin Lispro 100 UNIT/ML INSULN.PEN SC ×2 (11:28→11:29)
--- NOTE | 2018-11-27 11:40 | DCINST_ITS ---
- Discharge Diagnoses Current Active Problems: Current Active and Chronic Problems (Last Reviewed 11/22/18 @ 03:40 by Jalil Arredondo MD) Acute exacerbation of congestive heart failure (Chronic) Allergies/Adverse Reactions: Allergies metformin Adverse Reaction (Verified 11/22/18 03:56) Nausea oxycodone Adverse Reaction (Verified 11/22/18 03:56) Nausea Medications to take at Discharge Glipizide 5 mg PO DAILY 06/15/18 Ferrous Sulfate [Iron] 325 mg PO BID #60 tab 06/19/18 potassium chloride ER 20 mEq tablet,extended release(part/cryst) 20 meq PO DAILY #90 tab 07/16/18 aspirin 81 mg tablet,delayed release 81 mg PO DAILY 11/21/18 Fluconazole [Diflucan] 200 mg PO DAILY #7 tablet 11/27/18 Furosemide [Lasix] 80 mg PO BID #180 tab 11/27/18 Insulin Detemir [Levemir] 50 unit SQ DAILY #0 11/27/18 Nystatin Powder [Mycostatin Powder] 1 applic TOPICAL BID #1 bottle 11/27/18 Warfarin Sodium 5 mg PO DAILY #0 11/27/18 The following prescriptions were given: Fluconazole [Diflucan] 200 mg PO DAILY #7 tablet Nystatin Powder [Mycostatin Powder] 1 applic TOPICAL BID #1 bottle Primary Care Physician: Maxi Coats MD [Primary Care Provider] - Test Results: Test results from this visit will be discussed in further detail at your follow- up appointment, if applicable.
--- NOTE | 2018-11-27 11:50 | PCM.TXEXTCAR ---
- Diet 11/22/18 11:52 Diet: Cardiac: Carb-Controlled Is pt able to select menu?: Yes - Routine Orders/Code Status Suppository Type: Dulcolax 10mg Suppository Frequency: Daily PRN Routine Lab Work: CBC, BMP - on 12/01/18, INR - on 11/28/18 Code Status: DNRCC-A - Wound(s) sternum Wound Type: healed surgical incision upper abdomen Wound Type: old drain sites Dressing Change: Dry Sterile Dressing left lower extremity (calf) Wound Type: blister Right lower extremity Wound Type: Abrasion left chest-pacer site Wound Type: Surgical Incision Under Pannus Wound Type: excoriation right posterior chest Wound Type: Puncture - Therapies Weight Bearing: Weight bearing as tolerated Extremity Affected:: Bilateral Lower Physical Therapy: Eval and Treat Occupational Therapy: Eval and Treat Speech Therapy: Eval and Treat - Allergies/Procedures Done in Hospital Allergies/Adverse Reactions: Allergies metformin Adverse Reaction (Verified 11/22/18 03:56) Nausea oxycodone Adverse Reaction (Verified 11/22/18 03:56) Nausea - Type of Care/Length of Stay Estimated LOS: Convalescent Care Less Than 30 days Type of Care Needed: Skilled Rehab Potential: Good Prognosis: Good - Additional Orders/Day of Discharge Additional Orders: Need INR on 11/28/18 and titrate dose of coumadin accordingly Day of Discharge: 11/27/18 - Dietary and Speech Recommendations Dietitian Recommendations/Changes: Recommend 1600 calorie controlled, cardiac, low sodium diet w/ fluid restriction as indicated. - Follow Up Care Primary Care Physician: Maxi Coats MD [Primary Care Provider] - Please follow up with your Primary Care Physician in: in 2 weeks Please Follow Up With: Edwin Zaragoza MD When: in 3-4 week
--- NOTE | 2018-11-27 11:53 | CASEMGMT ---
Addendum entered by Audrey Moses 11/27/18 12:24: [facility] can accept patient. Alvina will call patient's family to discuss costs. MANUEL let patient know [facility] can take her and they will call her about costs. SW told her physician said he would send her today. She said he told them tomorrow. MANUEL told her he said if SW gets a facility he will send her today. She said they have some friends coming to visit later and they may be able to transport her. Await orders. Plan: d/c to [facility] under intermediate level of care. Audrey NOGUERA Original Note: Physician said patient wants a care home now. MANUEL spoke with patient and family. They said [facility] would be the first choice and if they cannot take her to let them know. MANUEL called [facility] with referral and faxed information as well. Audrey NOGUERA
--- NOTE | 2018-11-27 12:27 | DS.PCM_ITS ---
Discharge Date and Diagnosis Date of Admission: 11/22/18 Date of Discharge: 11/27/18 - Primary Discharge Diagnosis Acute on chronic diastolic heart failure Mitral valve replacement. 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 She also complained of dry cough and chest tightness on the day of presentation to ED. 1 acute on chronic heart failure with preserved EF/chronic diastolic heart failure: 2D echo was done and shows bioprosthetic mitral valve in good position. Echo on 11/22/2018 reported as moderate concentric LVH with normal systolic fun ction. EF 65%. LA severely enlarged. RA mildly enlarged. Mean transmitral valve gradient 15 mmHg with bioprosthetic mitral valve not well-visualized. 1- 2+ TR. Moderate diffuse aortic valve thickening with mild left ear. Aortic valve gradient mean 15.90 mmHg. Patient was seen by assembly supervisor and assessment is bioprosthetic mitral valve functioning well. Patient had 470 mL right ultrasound-guided thoracocentesis on 11/25. Coumadin resumed. INR 1.2. Coumadin 5 mg today and repeat INR tomorrow a.m. and titrate the dose of Coumadin accordingly. Patient previous dose of Coumadin 2.5 mg daily at home. Discharged on Lasix 80 mg twice daily. Monitor INR, and BMP as an outpatient titrate the dose of Lasix and Coumadin accordingly. 2. Valvular heart disease bioprosthetic mitral valve replacement on 11/03/2018: Mild aortic valve disease/left ear. As mentioned above 3. Recent permanent pacemaker implantation: Functioning well. 4. Moderate right-sided pleural effusion secondary to heart failure: As mentioned above 5. CKD stage III: Creatinine is stable 6. Diabetes mellitus type 2: Glucose is not adequately controlled. Continue Accu-Cheks before meals and at bedtime. A1c 7.7%. 7. Acute anemia on baseline anemia of chronic disease, most probably from recent surgery: During this hospital care, her H&H between 8 to 9 g%. Baseline hemoglobin 9.4 in June 2018. Ferrous sulfate 325 mg twice daily. Ferrous sulfate 200 mg IV 1 dose was given. Monitor CBC as an outpatient. DVT prophylaxis: On Coumadin Discharge medication reconciliation done. Discharge follow-up instructions completed. Discharge process discussed with the patient and all questions were answered to patient's satisfaction. Discharge process discussed with the patient's , son and [id number] present in the room. They agreed for more physical therapy and SNF. Patient is being discharged to SNF. Total time spent, exact 35 minutes on discharge meds reconciliation, examin ation, review of imaging and blood test and discussion with the patient on follow-up instructions. Subjective: Patient is still has decreased functional capacity and difficulty in moving around. Dyspnea on [id number] exertion. Patient was seen by PT and recommended further additional therapy. Overall, shortness of breath is much improved. Objective: General: Alert, Oriented x3, Cooperative HEENT: Atraumatic, PERRLA, EOMI, Normocephalic Neck: Supple, No JVD, Negative Carotid Bruits Lungs: Clear to auscultation, air entry has improved. Cardiovascular: Regular rate, Regular Rhythm, Normal S1, Normal S2, No murmurs Abdomen: Bowel Sounds Present, Soft, Non Tender, Non-Distended Extremities: Capillary Refill Less than 3 Seconds, Has Nasir wrap bandage in lower legs. Right lateral leg mass improved Skin: No rashes, No breakdown Musculoskeletal: No Tenderness to Palpation of Joints or Extremities, Arthritic Changes Neurological: Cranial nerves II-XII grossly intact, Deep Tendon Reflexes 2+/4 and Symmetrical, Neuro grossly intact Psych/Mental Status: Normal Affect, Appropriate - Physical Exam Vital Signs Temp Pulse Resp BP Pulse Ox 98.5 F 91 17 112/50 L 93 11/27/18 09:00 11/27/18 11:05 11/27/18 09:00 11/27/18 09:00 11/27/18 09:00 Oxygen Flow Rate (L/min) [3] 2 Oxygen Flow Rate (L/min) [2] 2 Oxygen Flow Rate (L/min) [1 ( 2 Initial Baseline)] Oxygen Flow Rate (L/min) 2 Oxygen Delivery Method [3] Room Air Oxygen Delivery Method [2] Nasal Cannula Oxygen Delivery Method [1 ( Nasal Cannula Initial Baseline)] Oxygen Delivery Method Room Air Weight: 261 lb 14.546 oz Body Mass Index (BMI) 42.1 Intake and Output for Last 24 Hours 11/25/18 11/26/18 11/27/18 23:59 23:59 23:59 Intake Total 1655 / 1655 1088 / 1088 430 / 430 Output Total 651 / 651 1050 / 1050 200 / 200 Balance 1004 / 1004 38 / 38 230 / 230 Laboratory Tests Past 24 Hrs 11/27/18 11/27/18 05:25 05:25 WBC 5.5 RBC 2.94 L Hgb 8.3 L Hct 27.9 L MCV 94.9 MCH 28.2 MCHC 29.7 L RDW 16.4 H RDW Differential 56.7 H Plt Count 295 MPV 9.3 Immature Gran % (Auto) 0.400 Neut % (Auto) 50.9 Lymph % (Auto) 26.1 [place] % (Auto) 11.9 H Eos % (Auto) 10.2 H Baso % (Auto) 0.5 Absolute Neuts (auto) 2.8 Absolute Lymphs (auto) 1.43 Total Counted Not Reportable PT 14.8 INR 1.2 POC Glucose 11/27/18 11/27/18 11/26/18 11:11 06:51 22:08 POC Glucose 212 H 75 75 11/26/18 16:49 POC Glucose 108 Home Medications: Medications to take at Discharge Glipizide 5 mg PO DAILY 06/15/18 Ferrous Sulfate [Iron] 325 mg PO BID #60 tab 06/19/18 potassium chloride ER 20 mEq tablet,extended release(part/cryst) 20 meq PO DAILY #90 tab 07/16/18 aspirin 81 mg tablet,delayed release 81 mg PO DAILY 11/21/18 Fluconazole [Diflucan] 200 mg PO DAILY #7 tab 11/27/18 Furosemide [Lasix] 80 mg PO BID #180 tab 11/27/18 Insulin Detemir [Levemir] 50 unit SQ DAILY #0 11/27/18 Nystatin Powder [Mycostatin Powder] 1 applic TOPICAL BID #1 bottle 11/27/18 Warfarin Sodium 5 mg PO DAILY #0 11/27/18 Following Prescrptions Were Given to Patient: Fluconazole [Diflucan] 200 mg PO DAILY #7 tab Nystatin Powder [Mycostatin Powder] 1 applic TOPICAL BID #1 bottle Primary Care Physician: Maxi Coats MD [Primary Care Provider] - Please follow up with your Primary Care Physician in: in 2 weeks Please Follow Up With: Edwin Zaragoza MD When: in 3-4 week Medical Necessity - Tobacco Use Smoking Status: Never smoker Meaningful Use Info Meaningful Use Diagnoses (Choose all that apply): None applicable, CHF - CHF NASIR/ARB ordered at discharge?: Yes Reason NASIR/ARB not ordered?: Hypotension Documented LVEF (%): 65
--- NOTE | 2018-11-27 12:35 | CASEMGMT ---
NATHEN OLIVARES NOTE: Plans are now for pt to be discharged to a SNF. Call placed to [facility] and spoke with Crystal. She was made aware pt is now going to a SNF. Hema BLAKE RN CM
[2018-11-27] MEDS: 0.9% NaCl Peripheral Flush Adult/Peds IV (14:20)
--- NOTE | 2018-11-27 14:30 | CASEMGMT ---
Received orders and faxed them to [facility]. MANUEL spoke with patient and her . SW let them know that the physician is discharging her today. They have a friend that will be coming in later and they can probably take them. MANUEL told them they will need to stop at the nurses desk before leaving as they will need to nut picker a packet to take to the skilled nursing. Convalescent completed on HENS. MANUEL called Alvina at [facility] and let her know this information. Plan: d/c to [facility] under intermediate level of care. Family friend will transport. Audrey HUMPHREY P[employer]IC PRODUCTION MACHINE SETTER
== END 2018-11-27 15:45 | disposition intermediate care facility (04) | DRG 292 ==
LOC: ED 01:12 → PCU 02:50
PROVIDERS: Internal Medicine; Admitting Provider Hospitalist; Emergency Provider Emergency Medicine; Family Provider Family Medicine; PCP Family Medicine; Visit Provider Internal Medicine
DX: I50.33 Acute on chronic diastolic (congestive) heart failure (principal); J91.8 Pleural effusion in other conditions classified elsewhere; Z68.41 Body mass index [BMI] 40.0-44.9, adult; E87.1 Hypo-osmolality and hyponatremia; E87.6 Hypokalemia; Z79.01 Long term (current) use of anticoagulants; Z95.3 Presence of xenogenic heart valve; Z79.4 Long term (current) use of insulin; Z95.0 Presence of cardiac pacemaker; N18.3 Chronic kidney disease, stage 3 (moderate); E11.22 Type 2 diabetes mellitus with diabetic chronic kidney disease; D63.8 Anemia in other chronic diseases classified elsewhere; E66.9 Obesity, unspecified; I35.0 Nonrheumatic aortic (valve) stenosis
CPT/HCPCS: 32555; 36415; 36600; 71045; 71046; 80048; 80053; 80061; 80076; 82803; 82962; 83036; 83735; 83880; 84100; 84484; 85014; 85018; 85025; 85027; 85610; 85730; 86850; 86900; 93005; 93306; 97110; 97116; 97162; 97165; 97530; 97535; 97802; 99285; J1756; J7040; A4216; J1940; J2405

== ENCOUNTER → 2019-04-07 | Outpatient (CLI) | payer SELFPAY ==
[2019-04-07 09:23] VITALS: BMI 40.4
[2019-04-07 11:31] LABS: Absolute Lymphocyte Count 3.08 X10^3/uL (0.83-4.51); Absolute Neutrophil Count 4.1 X10^3/uL (2.0-7.7); Basophil# 0.05 X10^3/uL; Basophil% 0.6 % (0-1); Eosinophil# 0.76 X10^3/uL; Eosinophils% 8.8 % (0-5); Hematocrit 40.7 % (37-47); Hemoglobin 12.6 g/dL (12.0-15.0); Lymphocyte # 3.08 X10^3/ul (4.0); Lymphocyte % 35.6 % (19-41); Mean Corpuscular Hgb 26.6 pg (27.0-32.0); Mean Platelet Vol. 10.7 fl (6.2-12.0); Monocyte# 0.64 X10^3/uL; Monocyte% 7.4 % (0-10); NRBC Flagged by Analyzer 0 % (0-5); Neutrophil # 4.09 X10^3/uL (2.7-7.7); Neutrophil % 47.4 % (47-70); Platelet Count 314 K/mm3 (150-450); RBC Distribution Width SD 50.5 fl (35.1-43.9); Red Blood Count 4.73 M/mm3 (4.2-5.4); White Blood Count 8.6 K/mm3 (4.4-11.0)
[2019-04-07 11:50] LABS: Anion Gap 8 (5-15); BUN 63 mg/dL (7-18); BUN/Creat Ratio 47.4 RATIO (10-20); Calcium,Total 9.5 mg/dL (8.5-10.1); Chloride 93 mmol/L (98-107); Creatinine, Serum 1.33 mg/dL (0.55-1.02); EST Glomerular Filtration Rate 42 mL/min (>60); Est Glom Filt Rate - Afr Amer 50 mL/min (>60); Glucose 200 mg/dL (74-106); Potassium 3.8 mmol/L (3.5-5.1); Sodium Level 135 mmol/L (136-145)
== END | disposition home or self-care (01) ==
PROVIDERS: Family Provider Family Medicine; PCP Family Medicine; Referring Provider Physician Assistant Medical; Visit Provider Physician Assistant Medical
DX: J90 Pleural effusion, not elsewhere classified (principal); I35.0 Nonrheumatic aortic (valve) stenosis; I36.1 Nonrheumatic tricuspid (valve) insufficiency; I50.31 Acute diastolic (congestive) heart failure
CPT/HCPCS: 36415; 80048; 85025

== ENCOUNTER 2021-09-08 10:54 | Outpatient (CLI) | payer SELFPAY ==
--- NOTE | 2021-09-08 11:02 | ECHOD_ITS ---
Reason For Study: Valve Replacement Eval Procedure This was a 2D Doppler, Color Flow transthoracic echocardiogram. Exam performed in department. Left Ventricle Normal LV size. Moderate concentric left ventricular hypertrophy. Sigmoid septum. Left ventricular systolic function is normal. The estimated ejection fraction is 60 %. Stage 3 diastolic dysfunction. No regional wall motion abnormalities noted. Right Ventricle Normal RV size. ICD or pacer leads identified within the right ventricle. Normal systolic function. Atria Normal left atrium. Normal right atrium. Mitral Valve There is moderate mitral annular calcification. Mean transmitral valve gradient 7 mmHg. Stable appearing bioprosthetic mitral valve apparatus. Tricuspid Valve Normal tricuspid valve. Mild to moderate (1-2+) tricuspid valve insufficiency. Pulmonary artery systolic pressure is 44 mmHg. Aortic Valve Trisinus/trileaflet aortic valve. Moderate focal aortic valve calcification. Mild to moderate aortic stenosis. Peak aortic valve gradient 33 mmHg. Mean aortic valve gradient 19 mmHg. Great Vessels Normal aortic root. The pulmonary artery is normal size. Normal inferior vena cava. Pericardium/Pleural No pericardial effusion. MMode/2D Measurements & Calculations LVIDd: 4.4 cm IVSd: 1.8 cm LVOT diam: 2.0 cm LVIDs: 3.1 cm LVPWd: 1.2 cm LVOT area: 3.1 cm2 RVDd: 4.5 cm FS: 30.0 % ACS: 0.70 cm LAV(MOD-bp): 90.8 ml LVAd ap4: 20.1 cm2 LAV(MOD-bp) Indexed: 43.9 ml/m2 LVLd ap4: 7.1 cm LAV(MOD-sp2): 76.0 ml EDV(MOD-sp4): 48.0 ml LAV(MOD-sp4): 102.7 ml EDV(sp4-el): 48.4 ml LVAs ap4: 12.5 cm2 LVLs ap4: 6.4 cm ESV(MOD-sp4): 21.5 ml ESV(sp4-el): 21.0 ml EF(MOD-sp4): 55.2 % EF(sp4-el): 56.7 % SV(MOD-sp4): 26.5 ml SV(sp4-el): 27.5 ml LA A4 area: 28.3 cm2 LA dimension(2D): 5.1 cm RA A4 area: 15.2 cm2 Time Measurements MV dec time: 0.37 sec Doppler Measurements & Calculations MV E max kaleb: 229.7 cm/sec Lat Peak E' Kaleb: 4.6 cm/sec Med Peak E' Kaleb: 5.4 cm/sec MV A max kaleb: 123.8 cm/sec E/E' lat: 50.1 E/E' med: 42.4 MV E/A: 1.9 MV V2 max: 248.4 cm/sec MV P1/2t max kaleb: 259.7 cm/sec Ao V2 max: 286.8 cm/sec MV max P.7 mmHg MV P1/2t: 111.2 msec Ao max P.9 mmHg MV V2 mean: 122.2 cm/sec Ao V2 mean: 208.5 cm/sec MV mean P.4 mmHg MV dec slope: 684.2 cm/sec2 Ao mean P.3 mmHg MV V2 VTI: 72.8 cm MVA(P1/2t): 2.0 cm2 Ao V2 VTI: 76.7 cm MVA(VTI): 1.5 cm2 LENA(I,D): 1.4 cm2 LENA(V,D): 1.6 cm2 LV V1 max: 147.9 cm/sec SV(LVOT): 109.9 ml PA V2 max: 121.2 cm/sec LV V1 max P.8 mmHg LV V1 mean P.9 mmHg LV V1 mean: 103.8 cm/sec LV V1 VTI: 35.9 cm TR max kaleb: 309.7 cm/sec TR max P.4 mmHg ECHO/Echo Complete Interpretation Summary Normal LV size. Left ventricular systolic function is normal. The estimated ejection fraction is 60 %. Moderate concentric left ventricular hypertrophy. Stage 3 diastolic dysfunction. Sigmoid septum. Stable appearing bioprosthetic mitral valve apparatus. Mild to moderate aortic stenosis. Moderate focal aortic valve calcification. Ordering Physician: Kacy Gay Referring Physician: Rashi Ramos Performed By: Lizet Amaya, JORGE A, RVT
== END 2021-09-08 23:59 | disposition home or self-care (01) ==
LOC: CVS 10:58
PROVIDERS: PCP Family Medicine; Referring Provider Physician Assistant Medical; Visit Provider Physician Assistant Medical
DX: I35.0 Nonrheumatic aortic (valve) stenosis (principal); Z95.3 Presence of xenogenic heart valve
CPT/HCPCS: 93306

== ENCOUNTER → 2023-10-09 | Outpatient (CLI) | payer SELFPAY, OTHER ==
--- NOTE | 2023-10-09 07:53 | ECHOD_ITS ---
Reason For Study: MITRAL VALVE REPLACEMENT Procedure This was a 2D Doppler, Color Flow transthoracic echocardiogram. Exam performed in department. Left Ventricle Normal left ventricle. Mild concentric left ventricular hypertrophy. Left ventricular systolic function is normal. The estimated ejection fraction is 55 %. No regional wall motion abnormalities noted. Right Ventricle Normal RV size. ICD or pacer leads identified within the right ventricle. Normal systolic function. Atria The left atrium is moderately enlarged. Normal right atrium. Mitral Valve Mean transmitral valve gradient 7 mmHg. Stable appearing bioprosthetic mitral valve apparatus. Tricuspid Valve Normal tricuspid valve. Mild to moderate (1-2+) tricuspid valve insufficiency. Pulmonary artery systolic pressure is 42 mmHg. Aortic Valve Trisinus/trileaflet aortic valve. Moderate focal aortic valve calcification. Peak aortic valve gradient 51 mmHg. Mean aortic valve gradient 33 mmHg. Moderate aortic stenosis. Pulmonic Valve The pulmonic valve is not well visualized. Great Vessels Normal aortic root. Pericardium/Pleural No pericardial effusion. MMode/2D Measurements & Calculations LVIDd: 4.9 cm IVSd: 1.2 cm LVOT diam: 2.0 cm LVIDs: 2.6 cm LVPWd: 1.2 cm LVOT area: 3.0 cm2 RVDd: 3.9 cm FS: 47.6 % Ao root diam: 3.2 cm LAV(MOD-bp): 85.4 ml LVAd ap4: 17.4 cm2 LAV(MOD-bp) Indexed: 43.3 ml/m2 LVLd ap4: 6.7 cm LAV(MOD-sp2): 104.0 ml EDV(MOD-sp4): 38.7 ml LAV(MOD-sp4): 68.2 ml EDV(sp4-el): 38.1 ml LVAs ap4: 11.1 cm2 LVLs ap4: 6.2 cm ESV(MOD-sp4): 16.9 ml ESV(sp4-el): 17.0 ml EF(MOD-sp4): 56.4 % EF(sp4-el): 55.4 % LVAd ap2: 24.8 cm2 SV(MOD-sp4): 21.8 ml SV(MOD-sp2): 48.7 ml LVLd ap2: 7.2 cm EDV(MOD-sp2): 73.3 ml EDV(sp2-el): 72.5 ml LVAs ap2: 12.8 cm2 LVLs ap2: 5.9 cm ESV(MOD-sp2): 24.5 ml ESV(sp2-el): 23.5 ml EF(MOD-sp2): 66.5 % SV(sp4-el): 21.1 ml LA dimension(2D): 4.9 cm LA A4 area: 24.5 cm2 RA A4 area: 12.5 cm2 TAPSE: 1.2 cm Doppler Measurements & Calculations Lat Peak E' Kaleb: 7.1 cm/sec Med Peak E' Kaleb: 5.7 cm/sec MV V2 max: 225.3 cm/sec MV max P.3 mmHg MV V2 mean: 124.9 cm/sec MV mean P.4 mmHg MV V2 VTI: 67.2 cm MVA(VTI): 1.4 cm2 Ao V2 max: 356.5 cm/sec LV V1 max: 116.7 cm/sec SV(LVOT): 96.3 ml Ao max P.3 mmHg LV V1 max P.4 mmHg Ao V2 mean: 279.9 cm/sec LV V1 mean P.1 mmHg Ao mean P.5 mmHg LV V1 mean: 84.2 cm/sec Ao V2 VTI: 97.7 cm LV V1 VTI: 31.7 cm AV (velocity ratio): 0.32 LENA(I,D): 0.99 cm2 LENA(V,D): 0.99 cm2 PA V2 max: 106.7 cm/sec TR max kaleb: 311.5 cm/sec PA max PG (full): 2.3 mmHg TR max P.8 mmHg ECHO/Echo Complete Interpretation Summary Normal left ventricle. Left ventricular systolic function is normal. The estimated ejection fraction is 55 %. The left atrium is moderately enlarged. Pulmonary artery systolic pressure is 42 mmHg. Moderate focal aortic valve calcification. Mean aortic valve gradient 33 mmHg. Moderate aortic stenosis. Ordering Physician: Adrianna Block Referring Physician: Adrianna Block Performed By: Sravan, Molly, RDCS
== END | disposition home or self-care (01) ==
PROVIDERS: PCP Family Medicine; Referring Provider Nurse Practitioner Gerontology; Visit Provider Nurse Practitioner Gerontology
DX: Z95.3 Presence of xenogenic heart valve (principal)
CPT/HCPCS: 93306